=== PATIENT | male | born 1965 | race Caucasian/White ===

== ENCOUNTER 2021-04-20 17:35 | Observation (INO) | payer MEDICARE, MEDICAID, SELFPAY ==
[2021-04-20] VITALS (11 sets, daily range): BP systolic 123–157; BP diastolic 72–105; PULSE 60–84; RESP 18–20; TEMP 36.6–37.2; O2SAT 95–100; BMI 28.8
--- NOTE | 2021-04-20 18:39 | HMH.EDUTC ---
[facility] [place] Condition on Discharge: Good <Laz Mike - Last Filed: 04/20/21 23:36> Condition on Discharge: Good <Mark Arcos - Last Filed: 04/21/21 01:22> Clinical Impression: Factor 5 Leiden mutation, heterozygous, History of partial amputation of toe of left foot, Tobacco use, Overweight (BMI 25.0-29.9) Cellulitis Qualifiers: Site of cellulitis: extremity Site of cellulitis of extremity: lower extremity Laterality: right Qualified Code(s): L03.115 - Cellulitis of right lower limb Disposition: Admitted as Observation Medical Decision Making - Medical Records Medical records reviewed: Yes: I reviewed the patient's medical records. - Benja Inquiry Pt receiving controlled substance: No - Lab Data Lab results reviewed: Yes: I reviewed the patient's lab results. Result diagrams: 04/20/21 19:15 04/20/21 19:15 <Laz Mike - Last Filed: 04/20/21 23:36> - Medical Records Medical records reviewed: No: I reviewed the patient's medical records. - Benja Inquiry Pt receiving controlled substance: No - Lab Data Lab results reviewed: Yes: I reviewed the patient's lab results. Result diagrams: 04/20/21 19:15 04/20/21 19:15 <Mark Arcos - Last Filed: 04/21/21 01:22> Vital Signs: 04/20/21 18:00 04/20/21 18:50 04/20/21 19:04 Temperature 98.9 F 97.8 F Temperature Source Oral Oral Pulse Rate Pulse Rate [Right Brachial] 60 81 84 Respiratory Rate 20 18 18 Blood Pressure Blood Pressure [Right Arm] 123/82 134/87 134/87 Blood Pressure Mean [Right Arm] 95 102 102 Blood Pressure Source [Right Arm] Automatic Cuff Automatic Cuff Blood Pressure Position [Right Arm] Sitting Sitting 02 Sat by Pulse Oximetry 97 99 99 Oxygen Delivery Method Room Air Room Air Room Air 04/20/21 19:30 04/20/21 20:00 04/20/21 20:30 Temperature Temperature Source Pulse Rate 83 78 73 Pulse Rate [Right Brachial] Respiratory Rate Blood Pressure 128/78 127/105 H 137/85 Blood Pressure [Right Arm] Blood Pressure Mean [Right Arm] Blood Pressure Source [Right Arm] Blood Pressure Position [Right Arm] 02 Sat by Pulse Oximetry 95 98 98 Oxygen Delivery Method 04/20/21 21:00 04/20/21 21:30 04/20/21 22:00 Temperature Temperature Source Pulse Rate 75 71 Pulse Rate [Right Brachial] Respiratory Rate Blood Pressure 140/86 133/77 125/72 Blood Pressure [Right Arm] Blood Pressure Mean [Right Arm] Blood Pressure Source [Right Arm] Blood Pressure Position [Right Arm] 02 Sat by Pulse Oximetry 98 95 Oxygen Delivery Method 04/20/21 23:14 04/20/21 23:19 04/21/21 00:00 Temperature 97.8 F Temperature Source Pulse Rate 77 79 Pulse Rate [Right Brachial] Respiratory Rate 18 Blood Pressure 157/98 H 150/91 H Blood Pressure [Right Arm] Blood Pressure Mean [Right Arm] Blood Pressure Source [Right Arm] Blood Pressure Position [Right Arm] 02 Sat by Pulse Oximetry 98 Oxygen Delivery Method Room Air Room Air - Lab Data Lab Results 04/20/21 19:15: WBC 7.9, RBC 5.61, Hgb 15.2, Hct 45.4, MCV 80.9, MCH 27.0, MCHC 33.4, RDW 14.5, Plt Count 228, MPV 8.1, Neut % (Auto) 68.0, Lymph % (Auto) 26.0, [place] % (Auto) 4.1, Eos % (Auto) 1.5, Baso % (Auto) 0.4, Neut # (Auto) 5.4, Lymph # (Auto) 2.1, [place] # (Auto) 0.3, Eos # (Auto) 0.1, Baso # (Auto) 0.0 04/20/21 19:15: Sodium 140, Potassium 4.4, Chloride 104, Carbon Dioxide 31 H, Anion Gap 9.4, BUN 18, Creatinine 0.90, Estimated Creat Clear 131, Estimated GFR 87, Est GFR ( Amer) 105, Glucose 100, Calcium 8.7 04/20/21 19:15: ESR 62 H 04/20/21 19:15: C-Reactive Protein 20.0 H Orders (Tests/Meds): ED MEDICATIONS Generic Name Dose Route Start Last Admin Trade Name Freq PRN Reason Stop Dose Admin Acetaminophen 650 mg 04/20/21 23:18 Acetaminophen 325mg Tab PO 05/20/21 23:17 Q4HP PRN Fever or Mild Pain Amitriptyline HCl 50 mg 04/21/21 21:00 Amitriptyline 50mg Tablet PO
--- NOTE | 2021-04-20 18:48 | PC.NURSE ---
PATIENT SENT TO ER PER LYNSEY CONDE APRN FOR FURTHER EVALUATION. REPORT GIVEN TO Janna CABRAL RN
--- NOTE | 2021-04-20 18:52 | PC.NURSE ---
Pt taken to ER room 5
[2021-04-20 19:36] LABS: Anion Gap 9.4 mEq/L (5-15); Blood Urea Nitrogen 18 mg/dl (9-20); Calcium 8.7 mg/dl (8.4-10.2); Carbon Dioxide 31 mmol/L (22.0-30.0); Chloride 104 mmol/L (98-107); Creatinine Clearance Estimated 131 mL/min (50-200); Estimated Glomerular Filt Rate 87 ml/min (>60); GFR (African American) 105 ML/MIN (>60); Glucose 100 mg/dl (74-100); Potassium 4.4 mmoL/L (3.5-5.1); Sodium 140 mmol/L (136-145)
[2021-04-20 20:02] LABS: Basophils % 0.4 % (0.1-2.0); Eosinophils # 0.1 K/mm3 (0.0-0.4); Eosinophils % 1.5 % (0.1-12.0); Hematocrit 45.4 % (42.0-52.0); Hemoglobin 15.2 g/dL (14.1-18.0); Lymphocytes # 2.1 K/mm3 (0.7-4.5); Mean Corpuscular HGB Conc 33.4 g/dL (31.8-35.4); Mean Corpuscular Volume 80.9 fl (80-94); Mean Platelet Volume 8.1 fl (7.4-10.4); Monocytes # 0.3 K/mm3 (0.1-1.0); Monocytes % 4.1 % (1.7-9.3); Neutrophils # 5.4 K/mm3 (1.8-7.8); Platelet Count 228 K/mm3 (142-424); Red Blood Count 5.61 M/mm3 (4.60-6.20); Red Cell Distribution Width 14.5 % (11.5-17.5); White Blood Count 7.9 K/mm3 (4.8-10.8)
--- NOTE | 2021-04-20 20:42 | CT_ITS ---
PROCEDURE INFORMATION: Exam: CT Right Lower Extremity Without Contrast, Foot Exam date and time: 04/20/2021 8:42 PM Age: 55 years old Clinical indication: Pain; Right; Prior surgery; Surgery date: 6+ months; Surgery type: 2nd toe removed; Patient HX: Swelling and ulceration lateral RT foot near toes TECHNIQUE: Imaging protocol: CT of the Right lower extremity without contrast was performed. Exam focused on the foot. Radiation optimization: All CT scans at this facility use at least one of these dose optimization techniques: automated exposure control; mA and/or kV adjustment per patient size (includes targeted exams where dose is matched to clinical indication); or iterative reconstruction. COMPARISON: No relevant prior studies available. FINDINGS: Bones/joints: Osteopenia. No acute fracture or dislocation. No focal bony lesions. Soft tissues: Diffuse soft tissue swelling. Skin thickening. No fluid collection to suggest abscess. No necrotizing fasciitis. There is a large ulceration involving the medial aspect of the foot at the level of the 1st metatarsophalangeal joint. IMPRESSION: 1. Large ulceration involving the soft tissues at the level of the 1st metatarsophalangeal joint. 2. No acute fracture or dislocation or evidence for osteomyelitis. 3. Diffuse cellulitis.
--- NOTE | 2021-04-20 20:43 | HMH.EDSKAF ---
ED Disposition Clinical Impression: Factor 5 Leiden mutation, heterozygous, History of partial amputation of toe of left foot, Tobacco use, Overweight (BMI 25.0-29.9) Cellulitis Qualifiers: Site of cellulitis: extremity Site of cellulitis of extremity: lower extremity Laterality: right Qualified Code(s): L03.115 - Cellulitis of right lower limb Disposition: Admitted as Observation Condition on Discharge: Good Referrals: Aron Shea MD [Primary Care Provider] - - Critical Care Critical Care Time: No Attestation: On 04/20/21, the high probability of a clinically significant, sudden or life threatening deterioration of the following system(s) required my full and direct attention, intervention and personal management. The time I documented below is in addition to time spent performing reported procedures but includes the following listed in this critical care notation. Medical Decision Making - Medical Records Medical records reviewed: Yes: I reviewed the patient's medical records. - Benja Inquiry Pt receiving controlled substance: No Vital Signs: 04/20/21 18:00 04/20/21 18:50 04/20/21 19:04 Temperature 98.9 F 97.8 F Temperature Source Oral Oral Pulse Rate [Right Brachial] 60 81 84 Respiratory Rate 20 18 18 Blood Pressure [Right Arm] 123/82 134/87 134/87 Blood Pressure Mean [Right Arm] 95 102 102 Blood Pressure Source [Right Arm] Automatic Cuff Automatic Cuff Blood Pressure Position [Right Arm] Sitting Sitting 02 Sat by Pulse Oximetry 97 99 99 Oxygen Delivery Method Room Air Room Air Room Air - Lab Data Lab results reviewed: Yes: I reviewed the patient's lab results. Lab Results 04/20/21 19:15: WBC 7.9, RBC 5.61, Hgb 15.2, Hct 45.4, MCV 80.9, MCH 27.0, MCHC 33.4, RDW 14.5, Plt Count 228, MPV 8.1, Neut % (Auto) 68.0, Lymph % (Auto) 26.0, [place] % (Auto) 4.1, Eos % (Auto) 1.5, Baso % (Auto) 0.4, Neut # (Auto) 5.4, Lymph # (Auto) 2.1, [place] # (Auto) 0.3, Eos # (Auto) 0.1, Baso # (Auto) 0.0 04/20/21 19:15: Sodium 140, Potassium 4.4, Chloride 104, Carbon Dioxide 31 H, Anion Gap 9.4, BUN 18, Creatinine 0.90, Estimated Creat Clear 131, Estimated GFR 87, Est GFR ( Amer) 105, Glucose 100, Calcium 8.7 04/20/21 19:15: ESR 62 H 04/20/21 19:15: C-Reactive Protein 20.0 H Result diagrams: 04/20/21 19:15 04/20/21 19:15 Orders (Tests/Meds): ORDERS Category Date Time Status Rapid PCR Covid and Flu A/B Stat Lab 04/20/21 22:55 Ordered Blood Culture Stat Micro 04/20/21 20:42 Ordered - CT Data CT Scan: Other (foot) Time Received: 22:[address] Reviewed: Yes: I have viewed the radiologist's interpretation Preliminary Findings: Abnormal (see report ) Medical Decision Narrative: has infected rt foot with hx of dvt - pt does smoke Skin/Abscess/FB HPI - General Chief complaint: Extremity Problem,Nontraumatic Stated complaint: Legs swelling Time Seen by Provider: 04/20/21 20:10 Mode of Arrival: Wheelchair Source of Information: Patient, Medical Record Limitations: Physical Limitations Description of Symptoms (Recalled from ER Triage Doc. by RN): c/o left leg pain & swelling x1 week. Hx DVT on same leg, currently on eliquis. denies SOB. - History of Present Illness HPI narrative: pt has ongoing swelling of lower ext - lt more than rt and has reddness and chronic changes rt foot - MD complaint: other (swelling /tender rt foot ) Onset (ago): day(s) Tetanus up to date: unsure Location: R foot Severity: moderate Associated symptoms: denies other symptoms - Related Data Home Medications Medication Instructions Recorded Confirmed gabapentin 600 mg tablet 600 mg PO TID tab 06/18/20 12/10/20 oxycodone-acetaminophen 10 mg-325 1 tab PO TID tab 06/18/20 12/10/20 mg tablet Previous Rx's Medication Instructions Recorded apixaban 5 mg tablet 5 mg PO BID #180 tab 06/18/20 potassium chloride 10 mEq 10 meq PO DAILY #90 tab 06/18/20 tablet,extended release amitriptyline 50 mg tablet
[2021-04-20 21:13] LABS: Erythrocyte Sedimentation Rate 62 mm/hr (0-20)
--- NOTE | 2021-04-20 21:51 | PC.NURSE ---
patient to radiology
--- NOTE | 2021-04-20 23:01 | PC.NURSE ---
spoke with santos @ [facility] for vancomycin dosage
[2021-04-20 23:22] LABS: Coronavirus 19, PCR Not Detected (NotDetected); Influenza A, PCR Not Detected (NotDetected); Influenza B, PCR Not Detected (NotDetected)
--- NOTE | 2021-04-20 23:23 | HMH.PHAVTE ---
[facility] Pharmacy VTE Monitoring - Patient Demographics Admission date: 04/20/21 Report Date: 04/20/21 Time: 23:23 Allergies/Adverse Reactions: Patient Allergies No Known Allergies Allergy (Verified 12/10/20 11:00) Height: 1.88 m Weight: 102.058 kg Patient Problems: Current Active Problems Cellulitis (Acute) Tobacco use (Acute) Overweight (BMI 25.0-29.9) (Acute) Factor 5 Leiden mutation, heterozygous (Acute) History of partial amputation of toe of left foot (Acute) - VTE Risk Labs: VTE Related Lab Results Hgb 15.2 g/dL (14.1-18.0) 04/20/21 19:15 Hct 45.4 % (42.0-52.0) 04/20/21 19:15 Plt Count 228 K/mm3 (142-424) 04/20/21 19:15 BUN 18 mg/dl (9-20) 04/20/21 19:15 Creatinine 0.90 mg/dl (0.66-1.25) 04/20/21 19:15 Estimated Creat Clear 131 mL/min (50-200) 04/20/21 19:15 Clinical Trial Participant: No - Prophylaxis VTE Prophylaxis Ordered?: Yes Types of VTE Prophylaxis: TEDS Knee High
--- NOTE | 2021-04-20 23:28 | HMH.PHAINT ---
verified home medication list with list from [facility], please confirm with patient
[2021-04-21] VITALS (14 sets, daily range): BP systolic 122–163; BP diastolic 71–99; PULSE 63–96; RESP 14–17; TEMP 36.2–36.7; O2SAT 94–100; BMI 26.6
--- NOTE | 2021-04-21 00:03 | PC.NURSE ---
PT ARRIVED TO FLOOR FO ED W/STAFF AT 0004
--- NOTE | 2021-04-21 02:32 | PC.WOUNDNOTE ---
Ulcer on right foot big toe, no drainage. Dressing applied.
[2021-04-21 07:43] LABS: Anion Gap 7.6 mEq/L (5-15); Basophils % 0.5 % (0.1-2.0); Blood Urea Nitrogen 14 mg/dl (9-20); Calcium 8.1 mg/dl (8.4-10.2); Carbon Dioxide 30 mmol/L (22.0-30.0); Chloride 105 mmol/L (98-107); Creatinine Clearance Estimated 168 mL/min (50-200); Eosinophils # 0.2 K/mm3 (0.0-0.4); Eosinophils % 3.4 % (0.1-12.0); Estimated Glomerular Filt Rate 116 ml/min (>60); GFR (African American) 141 ML/MIN (>60); Glucose 87 mg/dl (74-100); Hematocrit 37.5 % (42.0-52.0); Lymphocytes # 2.2 K/mm3 (0.7-4.5); Lymphocytes % 37.5 % (10-50); Mean Corpuscular HGB Conc 33.5 g/dL (31.8-35.4); Mean Corpuscular Hemoglobin 27.2 pg (27.0-31.2); Mean Corpuscular Volume 81.1 fl (80-94); Mean Platelet Volume 8.2 fl (7.4-10.4); Monocytes # 0.3 K/mm3 (0.1-1.0); Monocytes % 5.7 % (1.7-9.3); Neutrophils % 52.9 % (37.0-80.0); Platelet Count 223 K/mm3 (142-424); Potassium 3.6 mmoL/L (3.5-5.1); Red Blood Count 4.62 M/mm3 (4.60-6.20); Red Cell Distribution Width 14.6 % (11.5-17.5); Sodium 139 mmol/L (136-145); White Blood Count 5.7 K/mm3 (4.8-10.8)
--- NOTE | 2021-04-21 07:59 | HMH.PHACONS ---
- Pharmacy Consult Date: 04/21/21 Time: 07:59 Referring provider: DR. CROWE Reason for Consult:: VANCOMYCIN DOSING Allergies and ADEs:: Allergies Allergy/AdvReac Type Severity Reaction Status Date / Time No Known Allergies Allergy Verified 12/10/20 11:00 Home Medications:: Home Medications Medication Instructions Recorded Confirmed Type apixaban 5 mg tablet 5 mg PO BID #180 tab 06/18/20 04/21/21 Rx gabapentin 600 mg tablet 600 mg PO TID tab 06/18/20 04/21/21 History oxycodone-acetaminophen 10 mg-325 1 tab PO Q6HP PRN tab 06/18/20 04/21/21 History mg tablet potassium chloride 10 mEq 10 meq PO DAILY #90 tab 06/18/20 04/21/21 Rx tablet,extended release Amitriptyline HCl [Elavil 50mg 50 mg PO HS 04/20/21 04/21/21 History tablet] Trazodone HCl 150 mg PO HS 04/20/21 04/21/21 History Height: 1.88 m Weight: 102.058 kg Laboratory Results:: Laboratory Results - last 24 hr 04/20/21 19:15: WBC 7.9, RBC 5.61, Hgb 15.2, Hct 45.4, MCV 80.9, MCH 27.0, MCHC 33.4, RDW 14.5, Plt Count 228, MPV 8.1, Neut % (Auto) 68.0, Lymph % (Auto) 26.0, [place] % (Auto) 4.1, Eos % (Auto) 1.5, Baso % (Auto) 0.4, Neut # (Auto) 5.4, Lymph # (Auto) 2.1, [place] # (Auto) 0.3, Eos # (Auto) 0.1, Baso # (Auto) 0.0 04/20/21 19:15: Sodium 140, Potassium 4.4, Chloride 104, Carbon Dioxide 31 H, Anion Gap 9.4, BUN 18, Creatinine 0.90, Estimated Creat Clear 131, Estimated GFR 87, Est GFR ( Amer) 105, Glucose 100, Calcium 8.7 04/20/21 19:15: ESR 62 H 04/20/21 19:15: C-Reactive Protein 20.0 H 04/20/21 23:10: SARS-CoV-2 (PCR) Not detected, Influenza A Untype (PCR) Not detected, Influenza Type B (PCR) Not detected 04/21/21 05:40: WBC 5.7 D, RBC 4.62, Hct 37.5 L, MCV 81.1, MCH 27.2, MCHC 33.5, RDW 14.6, Plt Count 223, MPV 8.2, Neut % (Auto) 52.9, Lymph % (Auto) 37.5, [place] % (Auto) 5.7, Eos % (Auto) 3.4, Baso % (Auto) 0.5, Neut # (Auto) 3.0, Lymph # (Auto) 2.2, [place] # (Auto) 0.3, Eos # (Auto) 0.2, Baso # (Auto) 0.0 04/21/21 05:40: Sodium 139, Potassium 3.6, Chloride 105, Carbon Dioxide 30, Anion Gap 7.6, BUN 14, Creatinine 0.70 D, Estimated Creat Clear 168, Estimated GFR 116, Est GFR ( Amer) 141 D, Glucose 87, Calcium 8.1 L Medical History: Reports:: Hypertension Assessment and Plan - Assessment and plan all Dx Assessment and Plan for all problems:: Pharmacokinetic dosing service Objective: Patient: Floor: Age: 55 yo Serum creatinine: 0.90 mg/dL Height: 74.0 Inches Weight (kg): 102 Assessment: IBW (kg): 82.20 Dosing wt(kg): 102 Estimated Creatinine clearance (ml/min): 105.3 CRCL method: Cockcroft and Gault using ibw(default). Drug selected: Vancomycin Loading dose (mg): 0 Vd (liters): 81.6 (factor used: 0.8 L/kg) Yo (hr-1): 0.092 Half life (hrs): 7.53 Recommended dose: 2000 mg Interval: 12 hrs Infusion time (hrs): 2.0 Predicted peak (mcg/mL): 33.5 Predicted trough (mcg/mL): 13.35 Total body weight is being used for vancomycin dosing. Recommendations: Give Vancomycin 2000 mg q 12 hrs with an expected Cpeak of 33.5 mcg/ml and an expected Ctrough of 13.35 mcg/ml Thank you for the consult, will continue to follow. -DARRELL ANGEL, DEBBIED
--- NOTE | 2021-04-21 08:03 | XR_ITS ---
PROCEDURE: XR FOOT WT BEARING RT 3V CLINICAL INDICATION: swelling Pain COMPARISON: No exams were available for comparison FINDINGS: Moderate hallux valgus. There is lateral displacement of the proximal phalanx of the great toe by 8 mm. Osteoarthritic changes are present at the 1st MTP joint. Bandage artifact is present medially at the 1st MTP joint with soft tissue defect at this area. No bony erosive changes apparent that would indicate acute osteomyelitis. There has been amputation at the 2nd MTP joint. Hammertoe deformity involves the 3rd 4th and 5th toes. IMPRESSION: Hallux valgus with osteoarthritis 1st MTP joint and soft tissue defect medially at this area but no evidence of acute osteomyelitis. Dictated by: Damien Ribeiro MD 04/21/2021 11:00 Damien Ribeiro MD in [place] 04/21/2021 11:00
--- NOTE | 2021-04-21 08:05 | HMH.HP ---
*Admission Date: 04/20/21 *Chief complaint: RLE Redness and edema *History of present illness: 55-year-old male patient presents to the emergency department with bilateral lower extremity edema left greater than right. He reports 2 days ago the redness and edema increased in his right lower extremity and he has a wound on his right inner great toe. In the emergency department CT of his right foot showed a large ulceration involving soft tissue at the first metatarsophalangeal joint. Currently podiatry is with patient and planning on taking him to surgery today. He denies any chest pain/pressure or shortness of breath. He also denies any nausea/vomiting/diarrhea or fever/chills/body aches. He is currently on Eliquis for a remote DVT in his left lower extremity 04/20/[address]: FINDINGS: Bones/joints: Osteopenia. No acute fracture or dislocation. No focal bony lesions. Soft tissues: Diffuse soft tissue swelling. Skin thickening. No fluid collection to suggest abscess. No necrotizing fasciitis. There is a large ulceration involving the medial aspect of the foot at the level of the 1st metatarsophalangeal joint. IMPRESSION: 1. Large ulceration involving the soft tissues at the level of the 1st metatarsophalangeal joint. 2. No acute fracture or dislocation or evidence for osteomyelitis. 3. Diffuse cellulitis. Electronically signed by Preston Crawley MD [facility] History I have reviewed the patient's past medical history: Yes Medical History: Denies:: Coronary Artery Disease, Diabetes Mellitus Type 2, Hyperlipidemia, Hypertension *Have you ever received a pneumonia vaccine?: No *Have you received a flu vaccine this season?: Yes - *Social History Smoking Status: Current every day smoker Tobacco Type: cigarettes # Packs/Day (cigarettes): 1 Alcohol Intake: never Substance Use Type: denies use *Occupational Status:: unemployed *Travel in the last 8 weeks: None Family Hx:: No significant family history Review of Systems - Review of Systems Review of systems:: pertinent systems reviewed and negative unless documented below - Constitutional Reports fatigue, Denies anorexia - Eyes Denies blind spots, Denies double vision - ENT Denies abnormal hearing, Denies dizziness - *Cardiovascular Reports shortness of breath, Denies chest pain - *Respiratory Denies change in phlegm color, Denies chest congestion - *Gastrointestinal Denies abdominal pain, Denies bloating - *Musculoskeletal Denies back pain, Denies limited joint movement - Integumentary/Breasts Reports lesions - *Neurologic Denies confusion, Denies headache(s), Denies tingling/numbness/burning sensations, Denies seizure-like activity - Psychiatric Denies abnormal sleep pattern, Denies hearing things others do not hear - Endocrine Denies cold intolerance, Denies heat intolerance - Hematologic/Lymphatic Reports easy bleeding, Reports easy bruising - Allergic/Immunologic Denies GI upset with certain foods, Denies tongue swelling Meds Home Medications Medication Instructions Recorded Confirmed Type apixaban 5 mg tablet 5 mg PO BID #180 tab 06/18/20 04/21/21 Rx gabapentin 600 mg tablet 600 mg PO TID tab 06/18/20 04/21/21 History oxycodone-acetaminophen 10 mg-325 1 tab PO Q6HP PRN tab 06/18/20 04/21/21 History mg tablet potassium chloride 10 mEq 10 meq PO DAILY #90 tab 06/18/20 04/21/21 Rx tablet,extended release Amitriptyline HCl [Elavil 50mg 50 mg PO HS 04/20/21 04/21/21 History tablet] Trazodone HCl 150 mg PO HS 04/20/21 04/21/21 History Allergies Allergy/AdvReac Type Severity Reaction Status Date / Time No Known Allergies Allergy Verified 12/10/20 11:00 Exam Vital signs and Labs for Last 24 Hours: Temp Pulse Resp BP Pulse Ox 97.8 F 68 16 124/74 96 04/21/21 08:00 04/21/21 08:00 04/21/21 08:00 04/21/21 08:00 04/21/21 08:00 Laboratory Results - last 24 hr 04/20/21
--- NOTE | 2021-04-21 08:11 | XR_ITS ---
PROCEDURE: XR FOOT WT BEARING LT 3V CLINICAL INDICATION: Hx amp Follow-up amputation COMPARISON: CR XR FOOT WT BEARING RT 3V from 04/21/2021 FINDINGS: Status post amputation at the 2nd MTP joint. Hammertoe deformity is present at 3rd digit. Osteoarthritic changes are noted at the metatarsal tarsal region. On the lateral view there appears to be bony expansion of the distal fibula possibly due to an old fracture. Tib fib films may provide further evaluation. Mild pes planus IMPRESSION: Prior amputation 2nd metatarsophalangeal joint with osteoarthritic changes. Bony expansion of the distal fibula. Suggest tib fib films for further evaluation Dictated by: Damien Ribeiro MD 04/21/2021 09:28 Damien Ribeiro MD in [place] 04/21/2021 09:28
--- NOTE | 2021-04-21 08:57 | CA_ITS ---
APPROVED REPORT EXAM: Comprehensive 2D, Doppler, and color-flow Echocardiogram Research Development Manager: Nia Juarez, RT(R) Ht: 6 ft 2 in Wt: 225lbs BSA: 2.29 BP: 134/87 mmHg Indications: cellulitis, smoker, edema, SOB, factor 5, RLE non healing ulcer rt great toe. 2D Dimensions LVOT 2.07 cm (M/F) 1.5-2.5 LVEF ([facility]ford's) 61.50 % M: 52 - 72 LV Volume 127.20 mL M: 62 - 150 LV Volume Index 55.78 mL/m2 M: 34 - 74 M-Mode Dimensions RVDd 1.44 cm (0.9-2.6) LA Diam 3.79 cm (1.9-4.0) LVDd 5.30 cm (3.5-5.7) Ao Diam 2.98 cm (2.0-3.7) LVDs 4.03 cm (3.5-5.7) IVSd 1.02 cm (0.6-1.1) PWd 0.93 cm (0.6-1.1) EF (Teich) 47.30% FS 24.00% EDV (Teich) 135.30 mL ESV (Teich) 71.30 mL LV Diastology E Decel Time 193.00 (160-240 msec) E/A Ratio 1.1 MED E' 8.20 (< 7 cm/sec) E'/MED E' Ratio 10.63 (>14) LAT E' 13.90 (<10 cm/sec) E/LAT E' Ratio 6.27 (>14) Mitral Valve MV E Max Tung. 87.00 (40-130 cm/s) MV A Velocity 81.00 (40-130 cm/s) E/A Ratio 1.08 MV Decel. Time 193.00 (160-240 ms) MV PHT 57.00 ms Left Ventricle Left atrium is normal size, left ventricle is normal size, there is no concentric left ventricular hypertrophy, visually estimated ejection fraction 55% with no regional wall motion abnormality. Diastolic parameters are within normal range. Right Ventricle Right atrium and right ventricle are normal size and contractility. Aortic Valve Aortic valve is minimally thickened and fibrosed, there is no aortic stenosis or aortic insufficiency. Mitral Valve Mitral valve grossly normal, there is trace mitral regurgitation. Tricuspid Valve Tricuspid grossly normal, there is trace tricuspid regurgitation. Tricuspid regurgitation jet velocity is inadequate for calculation of the right ventricular systolic pressure. Pulmonic Valve Pulmonic valve is poorly visualized. Great Vessels Aortic root is normal size. Pericardium No significant pericardial effusion noted. Conclusion 1. Normal left ventricular size, preserved left ventricular systolic function, visually estimated ejection fraction 55% with no regional wall motion abnormality, diastolic parameters are within normal range. 2. Trace mitral and tricuspid regurgitation. 3. No significant pericardial effusion noted. Electronically signed by : Alfredo Cruz, 04/22/2021 16:17:07
--- NOTE | 2021-04-21 09:54 | HMH.ORTHOCON ---
*Admission Date: 04/20/21 <Lyla Austin - 04/21/21 09:57> *Reason for consult:: Infected Right foot ulcer <Lyla Austin 04/21/21 09:57> *History of present illness: Patient has been NPO since midnight for our consult. Patient has an ulcer with drainage and malodor to his Right medial hallux. The patient states he has some pain to palpation but he has become tolerant of the pain over the past week. 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 denies SOB. Patient does present with a right second toe amputation that was done previously this year on January 14, [address] Mahamed Squires. Patient also presents with left second toe amputation does not remember the surgeon but stated it was sometime in 2017. Sites appear well-healed. The right medial hallux ulcer has some callused borders but had greenish malodorous drainage coming from the center of the ulcer. I did obtain a culture and cleaned the site with sterile saline. Redressed with a Betadine soaked 4 x 4, dry gauze and Curlex. Patient has agreed to go to the OR with Dr. Yost for incision and drainage to clean out the ulcer.?. <Lyla Austin 04/21/21 10:02> [facility] History I have reviewed the patient's past medical history: Yes <Lyla Austin 04/21/21 11:02> Medical History: Reports:: Hypertension <Lyla Austin 04/21/21 09:57> *Have you ever received a pneumonia vaccine?: No <Lyla Austin 04/21/21 09:57> *Have you received a flu vaccine this season?: Yes <Lyla Austin 04/21/21 09:57> - *Social History Smoking Status: Current every day smoker <Lyla Austin 04/21/21 09:57> Tobacco Type: cigarettes <Lyla Austin 04/21/21 09:57> # Packs/Day (cigarettes): 1 <Lyla Austin 04/21/21 09:57> Alcohol Intake: never <RomulosilvinoLyla John 04/21/21 09:57> Substance Use Type: denies use <TobreannLyla Alvaro 04/21/21 09:57> *Occupational Status:: unemployed <TobreannLyla Alvaro 04/21/21 09:57> *Travel in the last 8 weeks: None <NormanLyla Alvaro 04/21/21 09:57> Family Hx:: No significant family history <NormanLyla Alvaro 04/21/21 09:57> Review of Systems - Review of Systems Review of systems:: pertinent systems reviewed and negative unless documented below <Maame Yost 04/21/21 11:26> - Constitutional Denies anorexia <Maame Yost 04/21/21 11:26> Denies fever(s) <TobreannLyla L 04/21/21 11:02> - Eyes Denies blind spots <Maame Yost 04/21/21 11:26> - ENT Denies abnormal hearing <Maame Yost 04/21/21 11:26> - *Cardiovascular Denies chest pain, Denies shortness of breath <NormanLyla Alvaro 04/21/21 11:02> - *Respiratory Denies cough <TobreannLyla L 04/21/21 11:02> - *Gastrointestinal Denies abdominal pain <NormanLyla Alvaro 04/21/21 11:02> - *Genitourinary Denies difficulty urinating <Lyla Austin 04/21/21 11:02> - *Musculoskeletal Reports other <NormanLyla Alvaro 04/21/21 11:02> Comments: History of partial amputation of his left 2nd toe back in 2017 <Lyla Austin 04/21/21 11:02> - Integumentary/Breasts Reports wounds (Right medial hallux open wound, drainage cultured) <Lyla Austin 04/21/21 11:02> - *Neurologic Denies headache(s), Denies tingling/numbness/burning sensations, Denies seizure-like activity <Lyla Austin - 04/21/21 09:57> - Psychiatric Denies confusion <Lyla Austin - 04/21/21 11:02> - Hematologic/Lymphatic Reports easy bleeding (Factor V Leiden mutation, heterozygous disorder), Reports easy bruising <Lyla Austin - 04/21/21 11:02> Meds Home Medications Medication Instructions Recorded Confirmed Type apixaban 5 mg tablet 5 mg PO BID #180 tab 06/18/20 04/21/21 Rx gabapentin 600 mg tablet 600 mg PO TID tab 06/18/20 04/21/21 History oxycodone-acetaminophen 10 mg-325 1 tab PO Q6HP PRN tab 06/18/20 04/21/21 History mg tablet p
--- NOTE | 2021-04-21 10:26 | HMH.CNCARD ---
History of Present Illness Consult date: 04/21/21 Requesting physician: Laz Mike Consult reason: shortness of breath Chief complaint: RLE edema History of present illness: This is a 55-year-old white gentleman who was admitted to the hospital with cellulitis and an ulceration to his right lower extremity. The patient states that since December 2020 he has been dealing with issues with his right lower extremity and edema. He states that he then developed cellulitis with the edema in his right lower extremity. He states about 2 days ago the cellulitis worsened and he decided to be evaluated for the cellulitis and edema in his right lower extremity. The patient underwent CT of the right foot and this showed a large ulceration involving the soft tissue at the first metatarsophalangeal joint. The patient has been evaluated by podiatry and he is going to undergo an I&D today. He denies any chest pain or pressure. He denies any shortness of breath during my questioning. He does report having edema in his lower extremities and states that the right lower extremity is much worse than the left. He denies any fever, nausea, vomiting, diarrhea, PND or orthopnea. He states that he did have some chills a few days ago but no fever. He denies coronary artery disease, [place], hypertension, hyperlipidemia and diabetes. The patient told me that he is healthy as a horse and he does not know why cardiology is seeing him. He states that he is just ready to get this surgery completed on his foot. [facility] History I have reviewed the patient's past medical history: Yes Medical History: Denies:: Coronary Artery Disease, Diabetes Mellitus Type 2, Hyperlipidemia, Hypertension *Have you ever received a pneumonia vaccine?: No *Have you received a flu vaccine this season?: Yes - *Social History Smoking Status: Current every day smoker Tobacco Type: cigarettes # Packs/Day (cigarettes): 1 Alcohol Intake: never Substance Use Type: denies use *Occupational Status:: unemployed *Travel in the last 8 weeks: None Family Hx:: No significant family history Meds Home Medications Medication Instructions Recorded Confirmed Type apixaban 5 mg tablet 5 mg PO BID #180 tab 06/18/20 04/21/21 Rx gabapentin 600 mg tablet 600 mg PO TID tab 06/18/20 04/21/21 History oxycodone-acetaminophen 10 mg-325 1 tab PO Q6HP PRN tab 06/18/20 04/21/21 History mg tablet potassium chloride 10 mEq 10 meq PO DAILY #90 tab 06/18/20 04/21/21 Rx tablet,extended release Amitriptyline HCl [Elavil 50mg 50 mg PO HS 04/20/21 04/21/21 History tablet] Trazodone HCl 150 mg PO HS 04/20/21 04/21/21 History Allergies Allergy/AdvReac Type Severity Reaction Status Date / Time No Known Allergies Allergy Verified 12/10/20 11:00 Exam Vital signs and Labs for Last 24 Hours: Temp Pulse Resp BP Pulse Ox 97.8 F 68 16 124/74 96 04/21/21 08:00 04/21/21 08:00 04/21/21 08:00 04/21/21 08:00 04/21/21 08:00 Laboratory Results - last 24 hr 04/20/21 19:15: WBC 7.9, RBC 5.61, Hgb 15.2, Hct 45.4, MCV 80.9, MCH 27.0, MCHC 33.4, RDW 14.5, Plt Count 228, MPV 8.1, Neut % (Auto) 68.0, Lymph % (Auto) 26.0, Edmunds % (Auto) 4.1, Eos % (Auto) 1.5, Baso % (Auto) 0.4, Neut # (Auto) 5.4, Lymph # (Auto) 2.1, Edmunds # (Auto) 0.3, Eos # (Auto) 0.1, Baso # (Auto) 0.0 04/20/21 19:15: Sodium 140, Potassium 4.4, Chloride 104, Carbon Dioxide 31 H, Anion Gap 9.4, BUN 18, Creatinine 0.90, Estimated Creat Clear 131, Estimated GFR 87, Est GFR ( Amer) 105, Glucose 100, Calcium 8.7 04/20/21 19:15: ESR 62 H 04/20/21 19:15: C-Reactive Protein 20.0 H 04/20/21 23:10: SARS-CoV-2 (PCR) Not detected, Influenza A Untype (PCR) Not detected, Influenza Type B (PCR) Not detected 04/21/21 05:40: WBC 5.7 D, RBC 4.62, Hct 37.5 L, MCV 81.1, MCH 27.2, MCHC 33.5, RDW 14.6, Plt Count 223, MPV 8.2, Neut % (Auto) 52.9, Lymph % (Auto) 37.5, Edmunds % (Auto) 5.7, Eos % (Auto) 3.4, Baso % (Auto) 0.5, Neut # (Auto) 3.0, Lymph # (Auto)
--- NOTE | 2021-04-21 10:30 | PC.NURSE ---
Pt down for surgery @ this time
--- NOTE | 2021-04-21 11:18 | US_ITS ---
APPROVED REPORT Exam Type: Ankle to Brachial Index Indications Claudication: Bilaterally Limb Pain: Right Non-healing Ulcer: Right Rest Pain: Bilaterally Edema Current Smoker Patient has a non healing ulcer on the great toe of the Rt foot. Patient's 3rd and 4th digit of the right foot have obvious wounds present. Bandages and gauze in place post surgical procedure on the right non healing ulcer of the great toe. Risk Factors History of PAD: Hypertension Hyperlipidemia Current Smoker Previous 2nd toe amputation on the right foot. Pressures/Indices Right Indices Left Indices Brachial 147.00 mmHg Brachial 143.00 mmHg Low Thigh 170.00 mmHg 1.16 Low Thigh 169.00 mmHg 1.15 Calf 169.00 mmHg 1.15 Calf 162.00 mmHg 1.10 Ankle(PT) 187.00 mmHg 1.27 Ankle(PT) 163.00 mmHg 1.11 Ankle(DP) 187.00 mmHg 1.27 Ankle(DP) 166.00 mmHg 1.13 Digit 142.00 mmHg 0.97 Digit 135.00 mmHg 0.92 Findings RT JORGE=1.3 LT JORGE=1.1 RT TBI=1.0 LT TBI=0.9 Normal waveforms bilaterally Diminished DP pulses RLE Otherwise normal PT pulses bilaterally and DP pulse LLE. Conclusion RT JORGE=1.3 LT JORGE=1.1 RT TBI=1.0 LT TBI=0.9 Normal waveforms bilaterally Diminished DP pulses RLE Otherwise normal PT pulses bilaterally and DP pulse LLE. Electronically signed by : Damien Ribeiro MD 04/21/2021 16:54:52
[2021-04-21 11:25] LABS: NT Pro Brain Natriuretic Pep. 55.1 pg/mL (0-125)
--- NOTE | 2021-04-21 11:31 | HMH.OPNOTE ---
Date of procedure: 04/21/21 Pre-op Diagnosis:: 1. Left foot callus 2. Right foot ulcer 3. Right foot cellulitis 4. History b/l 2nd toe amputations Post-op Diagnosis:: Same Procedure performed:: 1. Left plantar foot callus debridement 2. Right 3rd toe callus debridement 3. Right 1st MPJ ulcer debridement, excision with delayed primary closure 4. Right 1st metatarsal bone biopsy 5. Right first MPJ medial capsulorrhaphy Surgeon:: Maame Yost DPM EMAIL DESIGNER:: Hesham Ruth Anesthesia: MAC, local (20cc 0.5% marcaine plain) Estimated blood loss (mL): 20 Clinical Note:: Patient is a 55 y/o male with history of ulcers, osteomyelitis and amputations. Patient has an ulcer with drainage and malodor to his right medial hallux, 1st MPJ region. The patient states he has some pain to palpation but he has become tolerant of the pain over the past week. 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 denies SOB. Patient does present with a right second toe amputation that was done previously this year on January 14, [address] Mahamed Squires. Patient also presents with left second toe amputation does not remember the surgeon but stated it was sometime in 2017. Sites appear well-healed. Radiographs of the feet and right CT were reviewed and discussed with the patient. No obvious signs of osteomyelitis. We discussed conservative versus surgical treatment options. Conservative treatment options include local wound care, oral and IV antibiotics, change in shoe wear, taping/padding, and off-loading. Discussed that patient would benefit from a wider and deeper shoe wear to accommodate the deformity. We discussed surgical intervention for bone biospy and wound debridement. Patient also understands that they could have wound healing complications including delayed healing and infection. We discussed that if the wound does not heal, it is possible that they may need a more proximal amputation and could result in further loss of digits, loss of partial foot or loss of leg. We discussed the risks and benefits in great detail. Other surgical risks include: prolonged pain and swelling, further infection requiring oral or IV antibiotics, delay in healing of soft tissue or bone, nerve or blood vessel damage, CRPS/RSD, DVT, anesthesia complications, and even . All questions answered. Patient verbalized understanding. Consent obtained. Dr. Mike for need medical clearance. Pre-op labs reviewed. Cardio consulted for SOB and recommended ABIs. Will plan to obtain after procedure. Patient needs bone biospy to evaluate for osteomyelitis, no planned amputation today. Operative findings:: There is a callus noted to the plantar aspect of the left foot under the third metatarsal. Callus also noted to the right third toe tip plantarly. Both were sharply debrided with 15 blade through callused skin. No underlying ulcerations noted. The right medial hallux ulcer has some callused borders but had malodorous drainage coming from the center of the ulcer. Wound culture obtained at the bedside this morning. Predebridement right first metatarsal ulcer was 100% yellow fibrotic slough and measured 1.3 x 1.1 x 0.3 cm. It did not probe to the first metatarsal bone. Localized edema and erythema noted. No ascending cellulitis noted. Post debridement sharply excisionally with a 15 blade and forceps the ulcer measured 1.8 x 1.4 x 0.4 cm. There was bleeding noted. Patient is on Eliquis. Operative note:: On this date and time patient was deemed an appropriate surgical candidate. With informed consent signed, the patient was taken to the operating theater room. The patient was positioned supine. MAC anesthesia was induced. No tourniquet used. Pre-op right foot block given with 20 cc 0.5% marcaine plain. IV Vanco 1g given after the bone biospies. Callus debridement x2: Left plantar foot callus, right 3rd toe callus: Both the left and right foot were prepped and draped in
--- NOTE | 2021-04-21 12:02 | P.PN_ITS ---
[facility] Anesthesia Checklist - Structural Data Admitted From: Inpatient Planned Operative Procedure/s: i/d bx r foot Consent for Planned Operative Procedure(s) Verified: Yes - Airway Assessment C-Spine Mobility Assessed: Yes TMJ Mobility Assessed: Yes Dentition: Edentulous - Neurological Assessment Level of Consciousness: Awake, Alert, Appropriate - Anesthesia Plan Anesthesia Risk discussed: Yes Anesthesia Plan: Verified ASA Class: III Anesthesia Type: MAC [facility] History I have reviewed the patient's past medical history: Yes Medical History: Denies:: Coronary Artery Disease, Diabetes Mellitus Type 2, Hyperlipidemia, Hypertension *Have you ever received a pneumonia vaccine?: No *Have you received a flu vaccine this season?: Yes Anesthesia experience/problems:: none - *Social History Smoking Status: Current every day smoker Tobacco Type: cigarettes # Packs/Day (cigarettes): 1 Alcohol Intake: never Substance Use Type: denies use *Occupational Status:: unemployed *Travel in the last 8 weeks: None Family Hx:: No significant family history
--- NOTE | 2021-04-21 12:54 | PC.NURSE ---
Received report from Arabella MattaRN
--- NOTE | 2021-04-21 13:41 | SW/DCPLANNER ---
I spoke with this patient regarding discharge plans. Patient stated [place] Patient stated that he is independent at home. Patient has stated that he does not need any DME or home health services at this time. I will continue to follow up with this patient until he is medically stable for discharge. Patient has requested to speak with Dr Shea: I have informed patient that he will be rounding tomorrow morning.
--- NOTE | 2021-04-21 14:11 | HMH.PTEV ---
Physical Therapy Evaluation Rehab PT IP Evaluation Start: 04/21/21 13:03 Freq: ONCE Status: Active Protocol: Document 04/21/21 14:09 PHORSAW (Rec: 04/21/21 14:11 PHORNE [id number]) Subjective/History History History 55 yowm adm to [facility] for R foot wound I&D. He reports he lives alone, 1-2 steps to enter the home and is independent with all mobility prior to adm. Subjective Subjective Pt reports no c/o this pm other than being hungry. Rehab PT IP Eval Objective Appearance Patient Behavior Appropriate Patient Orientation Person,Place,Time Difficulty following instructions none Speech Pattern Clear Ambulation Patient Able to Ambulate Yes Ambulation Observation IP General Gait Pattern Observation Antalgic Gait Ambulation Distance (feet) 10 Ambulation Assistive Device None Ambulation Ability Supervision/Stand by Balance Ability to Arise Able, uses arms to help Sitting Balance Steady, safe Standing Balance Steady, wide stance Dynamic Sitting Balance Ability Good Dynamic Standing Balance Ability Fair Transfers Bed Transfer Ability Supervision/Stand by Chair Transfer Ability Supervision/Stand by Sit to Stand Bed Transfer Ability Supervision/Stand by Sit to Stand Chair Transfer Ability Supervision/Stand by Rehab PT IP prob,goals,plan Problems Date of Evaluation: 04/21/21 Discharge Plan PT Discharge Plan Pt appears to be at baseline for mobility at this time and should be appropriate to return home once medically stable. G -code Required No Eval Complexity Eval Charge Codes 36966 - Moderate Complexity PHYSICIAN CERTIFICATION: I certify the specified therapy services for Aurea Sierra are required, authorized, and reviewed every 30 days.
--- NOTE | 2021-04-21 15:00 | PC.NURSE ---
Pt educated on use of IS, pt able to demonstrate correct use back to staff. IS @ best = 2500.
--- NOTE | 2021-04-21 15:29 | SUR.PHASEI ---
1255: report called to Yenifer Mock RN.
[2021-04-21 17:14] LABS: Hemoglobin 12.6 g/dL (14.1-18.0)
--- NOTE | 2021-04-21 18:17 | PC.NURSE ---
Pt alert and oriented x4. Pt had a debridement of ulcers on both feet. Pt left for surgery at 1030 and returned at 1300. Dressing clean, dry, and intact. Pts left foot elevated per MD order. Pt teaching given on partial weight bearing and post op shoe is in place. Pt teaching was given on incentive spirometer and pt has been using it hourly. Pt VSS. Will continue to monitor.
[2021-04-22] VITALS: BP 132/80; PULSE 86; RESP 20; TEMP 36.6; O2SAT 95
[2021-04-22 04:00] VITALS: BP 115/72; PULSE 62; RESP 18; TEMP 36.9; O2SAT 95
[2021-04-22 05:03] VITALS: BMI 28.0
--- NOTE | 2021-04-22 06:10 | PC.NURSE ---
right lower dressing remains clean, dry and intact. awake, alert and oriented x 4. breath sounds clear with sats mid 90s on r/a. denies pain throughout night until this am. treated with prn medication. has denies soa, nausea or vomiting. voiding clear, yellow urine per urinal
[2021-04-22 06:27] LABS: Basophils % 0.3 % (0.1-2.0); Eosinophils # 0.2 K/mm3 (0.0-0.4); Eosinophils % 2.9 % (0.1-12.0); Hematocrit 38.2 % (42.0-52.0); Hemoglobin 12.5 g/dL (14.1-18.0); Lymphocytes # 2.1 K/mm3 (0.7-4.5); Mean Corpuscular HGB Conc 32.6 g/dL (31.8-35.4); Mean Corpuscular Volume 82.9 fl (80-94); Mean Platelet Volume 8.8 fl (7.4-10.4); Monocytes # 0.3 K/mm3 (0.1-1.0); Monocytes % 4.2 % (1.7-9.3); Neutrophils % 65.5 % (37.0-80.0); Platelet Count 209 K/mm3 (142-424); Red Blood Count 4.61 M/mm3 (4.60-6.20); Red Cell Distribution Width 14.7 % (11.5-17.5); White Blood Count 7.6 K/mm3 (4.8-10.8)
[2021-04-22 06:30] LABS: Chloride 103 mmol/L (98-107); Potassium 4.4 mmoL/L (3.5-5.1); Sodium 138 mmol/L (136-145)
[2021-04-22 06:32] LABS: Alanine Aminotransferase 9 U/L (12-78); Aspartate Amino Transferase 19 U/L (17-59); Blood Urea Nitrogen 12 mg/dl (9-20); Creatinine Clearance Estimated 143 mL/min (50-200); Estimated Glomerular Filt Rate 100 ml/min (>60); GFR (African American) 121 ML/MIN (>60)
[2021-04-22 06:33] LABS: Albumin Level 3.3 g/dl (3.5-5.0); Albumin/Globulin Ratio 1.3 (1.1-1.8); Alkaline Phosphatase 95 U/L (38-126); Anion Gap 5.4 mEq/L (5-15); Bilirubin,Total 0.4 mg/dl (0.2-1.3); Calcium 8.1 mg/dl (8.4-10.2); Carbon Dioxide 34 mmol/L (22.0-30.0); Globulin 2.6 g/dL (1.3-3.2); Glucose 109 mg/dl (74-100); Total Protein,Serum 5.9 g/dl (6.3-8.2)
[2021-04-22 07:27] VITALS: O2SAT 95
[2021-04-22 08:00] VITALS: BP 136/71; PULSE 77; RESP 18; TEMP 36.4; O2SAT 97
--- NOTE | 2021-04-22 08:20 | HMH.ORTHPN ---
Subjective Date: 04/22/21 Time: 07:45 Principal diagnosis: Right foot ulcer, cellulitis Interval history: Patient is resting comfortably in bed. Reports minimal soreness to the right foot. Does report some left knee/thigh pain. Denies N/V, F/C, SOB/CP. PN: Obj Ex Vital signs: Temp Pulse Resp BP Pulse Ox 98.4 F 62 18 115/72 95 04/22/21 04:00 04/22/21 04:00 04/22/21 04:00 04/22/21 04:00 04/22/21 07:27 - Constitutional no acute distress - Routine HEENT Exam Head: Present: normocephalic Eye: Present: EOMI ENT: Present: mucous membranes moist - Routine Respiratory Exam Absent: respiratory distress - Routine Abdominal Exam Present: soft - Routine Extremities Exam Present: edema (improving), pulses intact, amputation (b/l 2nd toe amp) - Detailed Lower Extremity Exam Top foot image: 1 - Decreased edema and erythema around the right 1st MPJ. Sutures are clean dry and intact to previous ulcer site, ulcer was surgical excised 04/21/21. No new drainage, malodor or purulence. Pulses intact. Reports some left thigh and knee pain. Progress Note: A&P (1) Cellulitis Status: Acute (2) Edema Status: Acute (3) History of amputation of toe Status: Acute (4) History of partial amputation of toe of left foot Status: Acute (5) SOB (shortness of breath) Status: Acute (6) Ulcer of right foot Status: Acute (7) Factor 5 Leiden mutation, heterozygous Status: Chronic (8) Tobacco use Status: Chronic (9) Chronic back pain greater than 3 months duration Status: Acute Assessment and Plan for All Diagnoses:: Sx 04/21/21, S/P 1. Left plantar foot callus debridement, 2. Right 3rd toe callus debridement, 3. Right 1st MPJ ulcer debridement, excision with delayed primary closure, 4. Right 1st metatarsal bone biopsy, 5. Right first MPJ medial capsulorrhaphy POD#1 04/21/21, intraop specimens: Right ulcer tissue pathology: pending Right first metatarsal bone pathology: pending Right first metatarsal bone culture: pending Microbiology 04/21/21 08:30 Foot,Right - Drainage Gram Stain - Final 04/21/21 08:30 Foot,Right - Drainage Wound Culture - Preliminary 04/20/21 23:10 Blood - Abscess Blood Culture - Preliminary Gram Positive Cocci 04/20/21 23:10 Blood - Abscess Blood Culture - Preliminary Overall surgical site looks stable with no new signs of infection. Pain and swelling has decreased. Area cleansed with Betadine. Betadine soaked gauze along with dry sterile dressing applied to the right foot. 1. PWB in post op shoe with crutches, walker 2. Dressing changes 3 times weekly (cleanse skin with saline or betadine, dry. Then apply betadine soaked gauze, dry gauze, kerlix, secure with Christopher) 3. Will need HHC vs wound care/infusion at discharge 4. Continue antibiotics: awaiting cultures. Prelim blood and wound cultures: GPC. Patient will likely need a PICC with IV abx (2 weeks if bone cultures negative for osteomyelitis, 6 wks if bone cultures positive) 5. Discuss plan of care with Dr. Mike/Dr. Shea -defer the left knee/thigh pain to PCP team 6. Plan for dsg change tomorrow per Podiatry (stable from Pod standpoint)
--- NOTE | 2021-04-22 09:41 | HMH.PNCARD ---
Subjective Date: 04/22/21 Time: 09:20 Principal diagnosis: Right foot ulcer, cellulitis Interval history: This is a 55-year-old white gentleman who was admitted to the hospital for cellulitis and ulceration to the right lower extremity. The patient did undergo an I&D of the right ulcer yesterday with Dr. Yost. His right foot is now in a dressing. He denies any pain in his right lower extremity. He states that his edema has improved as well in his right lower extremity. He denies any chest pain or pressure. He denies any shortness of breath. He denies any fever, chills, nausea, vomiting, diarrhea, PND or orthopnea. He states that he feels very well today. Exam Vital signs and Labs for Last 24 Hours: Temp Pulse Resp BP Pulse Ox 97.5 F L 77 18 136/71 97 04/22/21 08:00 04/22/21 08:00 04/22/21 08:00 04/22/21 08:00 04/22/21 08:00 Laboratory Results - last 24 hr 04/21/21 05:40: Hgb 12.6 L D 04/21/21 05:40: NT-Pro-B Natriuret Pep 55.1 04/22/21 05:50: WBC 7.6 D, RBC 4.61, Hgb 12.5 L, Hct 38.2 L, MCV 82.9, MCH 27.0, MCHC 32.6, RDW 14.7, Plt Count 209, MPV 8.8, Neut % (Auto) 65.5, Lymph % (Auto) 27.0, [place] % (Auto) 4.2, Eos % (Auto) 2.9, Baso % (Auto) 0.3, Neut # (Auto) 5.0, Lymph # (Auto) 2.1, [place] # (Auto) 0.3, Eos # (Auto) 0.2, Baso # (Auto) 0.0 04/22/21 05:50: Sodium 138, Potassium 4.4 D, Chloride 103, Carbon Dioxide 34 H, Anion Gap 5.4, BUN 12, Creatinine 0.80, Estimated Creat Clear 143, Estimated GFR 100, Est GFR ( Amer) 121, Glucose 109 H, Calcium 8.1 L, Total Bilirubin 0.4, AST 19, ALT 9 L, Alkaline Phosphatase 95, Total Protein 5.9 L, Albumin 3.3 L, Globulin 2.6, Albumin/Globulin Ratio 1.3 I & O for Last 24 hours: Intake & Output 04/19/21 04/20/21 04/21/21 04/22/21 23:59 23:59 23:59 23:59 Intake Total 500 / 500 1488 / 1842 1698 / 1698 Output Total 1200 / 1700 1300 / 1300 Balance 500 / 500 288 / 142 398 / 398 Weight 225 lb 208 lb 1 oz 219 lb Microbiology Reports for the Last 24 Hours: Microbiology 04/20/21 23:10 Blood - Abscess Blood Culture - Preliminary 04/20/21 23:10 Blood - Abscess Blood Culture - Preliminary Gram Positive Cocci 04/21/21 08:30 Foot,Right - Drainage Gram Stain - Final 04/21/21 08:30 Foot,Right - Drainage Wound Culture - Preliminary Narrative: JORGE shows: RT JORGE=1.3 LT JOGRE=1.1 RT TBI=1.0 LT TBI=0.9 Normal waveforms bilaterally Diminished DP pulses RLE Otherwise normal PT pulses bilaterally and DP pulse LLE. - Constitutional no acute distress, average body habitus - *Routine HEENT Exam Head: Present: normocephalic, atraumatic Eye: Present: EOMI, PERRL ENT: Present: mucous membranes moist - *Routine Neck Exam Present: supple, full ROM, normal carotid upstroke. Absent: JVD, carotid bruit, lymphadenopathy - *Routine Respiratory Exam Present: CTA bilaterally - *Routine Cardiovascular Exam Present: RRR, Normal S1, Normal S2. Absent: murmur - *Routine Abdominal Exam Present: soft, normoactive bowel sounds. Absent: tenderness, distended - *Routine Extremities Exam Present: edema, full ROM, pulses intact, normal capillary refill, amputation (Left 2nd toe, Right 2nd toe). Absent: cyanosis, clubbing - *Routine Skin Exam Present: erythema, lesions (RLE lesion with dressing intact). Absent: rash - *Routine Neurological Exam Present: alert, oriented X3, CN II-XII intact. Absent: sensory deficit, motor deficit Progress Note: A&P (1) Ulcer of right foot Status: Acute (2) Cellulitis Status: Acute (3) Edema Status: Acute (4) History of amputation of toe Status: Acute (5) History of partial amputation of toe of left foot Status: Acute (6) Factor 5 Leiden mutation, heterozygous Status: Chronic (7) Tobacco use Status: Chronic (8) Chronic back pain greater than 3 months duration Status: Acute (9) Coagulopathy Status: Chronic Assessm
--- NOTE | 2021-04-22 12:43 | HMH.ACPN2 ---
Internal Medicine - PN: Subj *Date: 04/22/21 *Time: 20:30 Interval history: 55-year-old male patient lying in bed resting quietly, he reports pain is at a tolerable level denies any chest pain or shortness of breath during night. Dressing intact to right lower extremity podiatry has been in to see patient this morning awaiting to see their recommendations. Discussed possible home health care patient is agreeable to home health care coming in and doing his dressing changes explained this will be an extended timeframe and he would have difficulty changing his own foot dressing. He agreed to this since then he reported he is familiar and known to the home health nurse Exam Vital signs and Labs for Last 24 Hours: Temp Pulse Resp BP Pulse Ox 97.5 F L 77 18 136/71 97 04/22/21 08:00 04/22/21 08:00 04/22/21 08:00 04/22/21 08:00 04/22/21 08:00 Laboratory Results - last 24 hr 04/21/21 05:40: Hgb 12.6 L D 04/22/21 05:50: WBC 7.6 D, RBC 4.61, Hgb 12.5 L, Hct 38.2 L, MCV 82.9, MCH 27.0, MCHC 32.6, RDW 14.7, Plt Count 209, MPV 8.8, Neut % (Auto) 65.5, Lymph % (Auto) 27.0, [place] % (Auto) 4.2, Eos % (Auto) 2.9, Baso % (Auto) 0.3, Neut # (Auto) 5.0, Lymph # (Auto) 2.1, [place] # (Auto) 0.3, Eos # (Auto) 0.2, Baso # (Auto) 0.0 04/22/21 05:50: Sodium 138, Potassium 4.4 D, Chloride 103, Carbon Dioxide 34 H, Anion Gap 5.4, BUN 12, Creatinine 0.80, Estimated Creat Clear 143, Estimated GFR 100, Est GFR ( Amer) 121, Glucose 109 H, Calcium 8.1 L, Total Bilirubin 0.4, AST 19, ALT 9 L, Alkaline Phosphatase 95, Total Protein 5.9 L, Albumin 3.3 L, Globulin 2.6, Albumin/Globulin Ratio 1.3 I & O for Last 24 hours: Intake & Output 04/19/21 04/20/21 04/21/21 04/22/21 23:59 23:59 23:59 23:59 Intake Total 500 / 500 1488 / 1842 1698 / 1698 Output Total 1200 / 1700 1300 / 1300 Balance 500 / 500 288 / 142 398 / 398 Weight 225 lb 208 lb 1 oz 219 lb Microbiology Reports for the Last 24 Hours: Microbiology 04/20/21 23:10 Blood - Abscess Blood Culture - Preliminary 04/20/21 23:10 Blood - Abscess Blood Culture - Preliminary Gram Positive Cocci 04/21/21 08:30 Foot,Right - Drainage Gram Stain - Final 04/21/21 08:30 Foot,Right - Drainage Wound Culture - Preliminary - Constitutional no acute distress - *Routine HEENT Exam Head: Present: normocephalic Eye: Present: EOMI ENT: Present: mucous membranes moist - *Routine Neck Exam Present: trachea midline. Absent: tracheal deviation - *Routine Respiratory Exam Present: CTA bilaterally. Absent: accessory muscle use - *Routine Cardiovascular Exam Present: RRR - *Routine Abdominal Exam Present: soft, normoactive bowel sounds. Absent: tenderness, guarding - *Routine Extremities Exam Present: edema, pulses intact. Absent: cyanosis, clubbing, calf tenderness - *Routine Skin Exam Present: dry, warm, wounds. Absent: intact, cyanosis - *Routine Neurological Exam Present: alert, oriented X3. Absent: sensory deficit - Routine Psychiatric Exam Present: normal affect, normal thought process. Absent: auditory hallucinations, visual hallucinations Assessment and Plan (1) Ulcer of right foot Status: Acute Category: Medical Code(s): L97.519 - Non-pressure chronic ulcer of other part of right foot with unspecified severity (2) Cellulitis Status: Acute Qualifiers: Site of cellulitis: extremity Site of cellulitis of extremity: lower extremity Laterality: right Qualified Code(s): L03.115 - Cellulitis of right lower limb Category: Medical Code(s): L03.90 - Cellulitis, unspecified (3) Edema Status: Acute Category: Medical Code(s): R60.9 - Edema, unspecified (4) History of amputation of toe Status: Acute Category: Medical Code(s): Z89.429 - Acquired absence of other toe(s), unspecified side (5) History of partial amputation of toe of left foot Status: Acute Category: Surgical Code(s):
--- NOTE | 2021-04-22 13:34 | PC.NURSE ---
Addendum entered by Velma Mock RN 04/22/21 14:21: Vanco dose will be late d/t wait for vanco trough. Original Note: Spoke to Lalitha in lab about vanco trough, states that she is still working on it and will notify when it is complete.
--- NOTE | 2021-04-22 14:02 | CA_ITS ---
APPROVED REPORT Bilateral Lower Extremity Venous Study for DVT. 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 Jewel: RANDEE HugoT Indications Lower Extremity Pain: Bilateral HX of DVT,Factor 5, s/p toe amputation Risk Factors Prior Phlebitis/DVT Past History DVT : Medications Pt on Eliqus Vein Imaging CFV (R): compressive, spontaneous, phasic, augmentation FEM (R): compressive, spontaneous, phasic, augmentation POP (R): compressive, spontaneous, phasic, augmentation PTV (R): Compressible GSV (R): Compressible Peroneals (R):Compressible GAS (R): Compressible CFV (L): compressive, spontaneous, phasic, augmentation FEM (L): compressive, spontaneous, phasic, augmentation POP (L): compressive, spontaneous, phasic, augmentation PTV (L): Compressible GSV (L): Compressible Peroneals (L):Compressible GAS (L): Compressible Findings Study suggests no evidence of DVT or SVT of the bilateral lower extremities. There is a 6.7 X 2.4 cm complex lesion seen in the left popliteal fossa, ? Tillman's cyst. Conclusion Study suggests no evidence of DVT or SVT of the bilateral lower extremities. There is a 6.7 X 2.4 cm complex cystic lesion seen in the left popliteal fossa, consistent with Tillman's cyst. Electronically signed by : Damien Ribeiro MD 04/22/2021 15:26:14
[2021-04-22 14:05] LABS: Vancomycin,Trough 10.6 ug/mL (5.0-10.0)
--- NOTE | 2021-04-22 14:30 | HMH.PHACONS ---
- Pharmacy Consult Date: 04/22/21 Time: 14:30 Referring provider: DR. CROWE Reason for Consult:: VANCOMYCIN TROUGH LEVEL AND DOSE CHANGE Allergies and ADEs:: Allergies Allergy/AdvReac Type Severity Reaction Status Date / Time No Known Allergies Allergy Verified 12/10/20 11:00 Home Medications:: Home Medications Medication Instructions Recorded Confirmed Type apixaban 5 mg tablet 5 mg PO BID #180 tab 06/18/20 04/21/21 Rx gabapentin 600 mg tablet 600 mg PO TID tab 06/18/20 04/21/21 History oxycodone-acetaminophen 10 mg-325 1 tab PO Q6HP PRN tab 06/18/20 04/21/21 History mg tablet potassium chloride 10 mEq 10 meq PO DAILY #90 tab 06/18/20 04/21/21 Rx tablet,extended release Amitriptyline HCl [Elavil 50mg 50 mg PO HS 04/20/21 04/21/21 History tablet] Trazodone HCl 150 mg PO HS 04/20/21 04/21/21 History Height: 1.88 m Weight: 99.337 kg Laboratory Results:: Laboratory Results - last 24 hr 04/21/21 05:40: Hgb 12.6 L D 04/22/21 05:50: WBC 7.6 D, RBC 4.61, Hgb 12.5 L, Hct 38.2 L, MCV 82.9, MCH 27.0, MCHC 32.6, RDW 14.7, Plt Count 209, MPV 8.8, Neut % (Auto) 65.5, Lymph % (Auto) 27.0, [place] % (Auto) 4.2, Eos % (Auto) 2.9, Baso % (Auto) 0.3, Neut # (Auto) 5.0, Lymph # (Auto) 2.1, [place] # (Auto) 0.3, Eos # (Auto) 0.2, Baso # (Auto) 0.0 04/22/21 05:50: Sodium 138, Potassium 4.4 D, Chloride 103, Carbon Dioxide 34 H, Anion Gap 5.4, BUN 12, Creatinine 0.80, Estimated Creat Clear 143, Estimated GFR 100, Est GFR ( Amer) 121, Glucose 109 H, Calcium 8.1 L, Total Bilirubin 0.4, AST 19, ALT 9 L, Alkaline Phosphatase 95, Total Protein 5.9 L, Albumin 3.3 L, Globulin 2.6, Albumin/Globulin Ratio 1.3 04/22/21 11:01: Vancomycin Trough 10.6 H Medical History: Denies:: Coronary Artery Disease, Diabetes Mellitus Type 2, Hyperlipidemia, Hypertension Assessment and Plan (1) Ulcer of right foot Status: Acute Category: Medical Code(s): L97.519 - Non-pressure chronic ulcer of other part of right foot with unspecified severity (2) Cellulitis Status: Acute Qualifiers: Site of cellulitis: extremity Site of cellulitis of extremity: lower extremity Laterality: right Qualified Code(s): L03.115 - Cellulitis of right lower limb Category: Medical Code(s): L03.90 - Cellulitis, unspecified (3) Edema Status: Acute Category: Medical Code(s): R60.9 - Edema, unspecified (4) History of amputation of toe Status: Acute Category: Medical Code(s): Z89.429 - Acquired absence of other toe(s), unspecified side (5) History of partial amputation of toe of left foot Status: Acute Category: Surgical Code(s): Z89.422 - Acquired absence of other left toe(s) (6) Factor 5 Leiden mutation, heterozygous Status: Chronic Category: Medical Code(s): D68.51 - Activated protein C resistance (7) Tobacco use Status: Chronic Category: Social Hx Code(s): Z72.0 - Tobacco use (8) Chronic back pain greater than 3 months duration Status: Acute Category: Medical Code(s): M54.9 - Dorsalgia, unspecified; G89.29 - Other chronic pain (9) Coagulopathy Status: Chronic Category: Medical Code(s): D68.9 - Coagulation defect, unspecified - Assessment and plan all Dx Assessment and Plan for all problems:: BASED ON PATIENT FACTORS AND VANCOMYCIN TROUGH LEVEL OF 10.6, RECOMMEND CHANGING DOSE TO 2,250MG EVERY 12 HOURS. PHARMACY WILL CONTINUE TO MONITOR AND ADJUST DOSE APPROPRIATE. -DARRELL ANGEL PHARMD
[2021-04-22 15:40] VITALS: BP 136/65; PULSE 74; RESP 17; TEMP 36.5; O2SAT 98
--- NOTE | 2021-04-22 17:38 | PC.NURSE ---
No acute changes. Remains on room air, no s/s of resp distress. HR regular. Abdomen soft, non-tender w/ active BS in all quads. Voiding w/o difficulty. No BM this shift. Dressing to R foot c/d/i. Trace edema noted in LLE. R foot elevated on pillow. Pt assisted w/ adl's, standby assist. He was assisted x1 in shower. He was treated once for pain, no complaints noted since that time. He is currently sitting in bed watching TV. Call gladys w/in reach.
[2021-04-22 20:00] VITALS: BP 126/73; PULSE 74; RESP 16; TEMP 36.6; O2SAT 96
--- NOTE | 2021-04-23 03:39 | PC.NURSE ---
Patient was pleasant throughout shift and rested throughout shift. VSS. Patient did complain of pain controlled with po pain medications. Patients Right lower extremity dressing is clean dry and intact. Patient voiced no further concerns to RN.
[2021-04-23 04:00] VITALS: BP 133/76; PULSE 72; RESP 16; TEMP 36.6; O2SAT 96
[2021-04-23 05:09] VITALS: BMI 28.3
[2021-04-23 05:50] LABS: Basophils % 0.4 % (0.1-2.0); Eosinophils # 0.2 K/mm3 (0.0-0.4); Eosinophils % 2.7 % (0.1-12.0); Hematocrit 38.9 % (42.0-52.0); Hemoglobin 12.8 g/dL (14.1-18.0); Lymphocytes # 1.4 K/mm3 (0.7-4.5); Lymphocytes % 17.2 % (10-50); Mean Corpuscular HGB Conc 32.9 g/dL (31.8-35.4); Mean Corpuscular Hemoglobin 26.8 pg (27.0-31.2); Mean Corpuscular Volume 81.5 fl (80-94); Mean Platelet Volume 8.5 fl (7.4-10.4); Monocytes # 0.4 K/mm3 (0.1-1.0); Monocytes % 5.3 % (1.7-9.3); Neutrophils # 6.1 K/mm3 (1.8-7.8); Neutrophils % 74.4 % (37.0-80.0); Platelet Count 196 K/mm3 (142-424); Red Blood Count 4.78 M/mm3 (4.60-6.20); Red Cell Distribution Width 14.6 % (11.5-17.5); White Blood Count 8.2 K/mm3 (4.8-10.8)
[2021-04-23 06:00] LABS: Chloride 100 mmol/L (98-107)
[2021-04-23 06:01] LABS: Potassium 3.8 mmoL/L (3.5-5.1); Sodium 136 mmol/L (136-145)
[2021-04-23 06:03] LABS: Alanine Aminotransferase 8 U/L (12-78); Albumin Level 3.3 g/dl (3.5-5.0); Albumin/Globulin Ratio 1.2 (1.1-1.8); Alkaline Phosphatase 99 U/L (38-126); Anion Gap 5.8 mEq/L (5-15); Aspartate Amino Transferase 19 U/L (17-59); Bilirubin,Total 0.4 mg/dl (0.2-1.3); Blood Urea Nitrogen 17 mg/dl (9-20); Carbon Dioxide 34 mmol/L (22.0-30.0); Creatinine Clearance Estimated 129 mL/min (50-200); Estimated Glomerular Filt Rate 87 ml/min (>60); GFR (African American) 105 ML/MIN (>60); Globulin 2.7 g/dL (1.3-3.2)
[2021-04-23 06:04] LABS: Calcium 8.1 mg/dl (8.4-10.2); Glucose 105 mg/dl (74-100)
[2021-04-23 07:46] VITALS: BP 118/76; PULSE 77; RESP 19; TEMP 36.7; O2SAT 97
--- NOTE | 2021-04-23 10:01 | HMH.ORTHPN ---
Subjective Date: 04/23/21 <Lyla Austin - 04/23/21 10:01> Time: 08:00 <Lyla Austin - 04/23/21 10:01> Principal diagnosis: Right foot ulcer, cellulitis <Lyla Austin - 04/23/21 10:01> Interval history: Patient is resting comfortably in bed this morning. Dressing change without complication. He denies any new complaints. <RitikaMaame 04/23/21 13:10> PN: Obj Ex Vital signs: Temp Pulse Resp BP Pulse Ox 98.0 F 77 19 118/76 97 04/23/21 07:46 04/23/21 07:46 04/23/21 07:46 04/23/21 07:46 04/23/21 07:46 <Lyla Austin - 04/23/21 10:01> - Constitutional no acute distress <Maame Yost 04/23/21 13:12> - Routine HEENT Exam Head: Present: normocephalic <RitikaMaame 04/23/21 13:12> Eye: Present: EOMI <RitikaMaame 04/23/21 13:12> ENT: Present: mucous membranes moist <RitikaMaame 04/23/21 13:12> - Routine Neck Exam Present: supple <RitikaMaame 04/23/21 13:12> - Routine Cardiovascular Exam Present: RRR <RitikaMaame 04/23/21 13:12> - Routine Abdominal Exam Present: soft <Maame Yost 04/23/21 13:12> - Routine Extremities Exam Present: pulses intact <RitikaMaame 04/23/21 13:12> - Detailed Lower Extremity Exam Top foot image: 1 - Decreased edema and erythema around the right 1st MPJ. Sutures are clean dry and intact to previous ulcer site, ulcer was surgical excised 04/21/21. No new drainage, malodor or purulence. Pulses intact. <Maame Yost 04/23/21 13:12> Progress Note: A&P (1) Ulcer of right foot Status: Acute (2) Cellulitis Status: Acute (3) Edema Status: Acute (4) History of amputation of toe Status: Acute (5) History of partial amputation of toe of left foot Status: Acute (6) Factor 5 Leiden mutation, heterozygous Status: Chronic (7) Tobacco use Status: Chronic (8) Chronic back pain greater than 3 months duration Status: Acute (9) Coagulopathy Status: Chronic <Lyla Austin Alvaro - 04/23/21 10:01> (1) Ulcer of right foot Status: Acute (2) Cellulitis Status: Acute (3) Edema Status: Acute (4) History of amputation of toe Status: Acute (5) History of partial amputation of toe of left foot Status: Acute (6) Factor 5 Leiden mutation, heterozygous Status: Chronic (7) Tobacco use Status: Chronic (8) Chronic back pain greater than 3 months duration Status: Acute (9) Coagulopathy Status: Chronic <Maame Yost - 04/23/21 13:12> Assessment and Plan for All Diagnoses:: Sx 04/21/21, S/P 1. Left plantar foot callus debridement, 2. Right 3rd toe callus debridement, 3. Right 1st MPJ ulcer debridement, excision with delayed primary closure, 4. Right 1st metatarsal bone biopsy, 5. Right first MPJ medial capsulorrhaphy POD#2 04/21/21, intraop specimens: Right ulcer tissue pathology: pending Right first metatarsal bone pathology: pending Right first metatarsal bone culture: GNR, GPC Microbiology 04/21/21 08:30 Foot,Right - Drainage Gram Stain - Final 04/21/21 12:00 Bone - Right Big Bone Culture - Preliminary 04/21/21 08:30 Foot,Right - Drainage Wound Culture - Preliminary Gram Negative Rods Gram Negative Rods#2 04/20/21 23:10 Blood - Abscess Blood Culture - Preliminary Staphylococcus intermedius 04/20/21 23:10 Blood - Abscess Blood Culture - Preliminary Gram Positive Cocci Laboratory Tests 04/20/21 04/20/21 04/22/21 19:15 19:15 05:50 WBC 7.6 D ESR 62 H Creatinine Estimated GFR Glucose C-Reactive Protein 20.0 H Vancomycin Trough 04/22/21 04/23/21 04/23/21 11:01 05:13 05:13 WBC 8.2 ESR Creatinine 0.90 Estimated GFR 87 Glucose 105 H C-Reactive Protein Vancomycin Trough 10.6 H
--- NOTE | 2021-04-23 10:41 | SW/DCPLANNER ---
PATIENT IS DISCHARGING HOME TODAY, HE WILL BE DOING ORAL ANTIBIOTICS LEVAQUIN AND CLINDAMYCIN AND HAS ELECTED TO DO MEDS TO BEDS... HE RECEIVED A DRESSING CHANGE TODAY AND IS TO FOLLOW FOR ANOTHER DSG CHANGE IN THE OFFICE ON MONDAY AND FOLLOW UP WITH DR LUCAS OFFICE THE SAME DAY....
--- NOTE | 2021-04-23 12:57 | HMH.DCSUM ---
General - General Admission date:: 04/21/21 Discharge date: 04/23/21 HPI HPI: 55-year-old male patient presents to the emergency department with bilateral lower extremity edema left greater than right. He reports 2 days ago the redness and edema increased in his right lower extremity and he has a wound on his right inner great toe. In the emergency department CT of his right foot showed a large ulceration involving soft tissue at the first metatarsophalangeal joint. Currently podiatry is with patient and planning on taking him to surgery today. He denies any chest pain/pressure or shortness of breath. He also denies any nausea/vomiting/diarrhea or fever/chills/body aches. He is currently on Eliquis for a remote DVT in his left lower extremity 04/20/[address]: FINDINGS: Bones/joints: Osteopenia. No acute fracture or dislocation. No focal bony lesions. Soft tissues: Diffuse soft tissue swelling. Skin thickening. No fluid collection to suggest abscess. No necrotizing fasciitis. There is a large ulceration involving the medial aspect of the foot at the level of the 1st metatarsophalangeal joint. IMPRESSION: 1. Large ulceration involving the soft tissues at the level of the 1st metatarsophalangeal joint. 2. No acute fracture or dislocation or evidence for osteomyelitis. 3. Diffuse cellulitis. Electronically signed by Preston Crawley MD Hospital Course Hospital Course: Laboratory Tests 04/20/21 04/20/21 04/20/21 19:15 19:15 19:15 WBC 7.9 RBC 5.61 Hgb 15.2 Hct 45.4 MCV 80.9 MCH 27.0 MCHC 33.4 RDW 14.5 Plt Count 228 MPV 8.1 Neut % (Auto) 68.0 Lymph % (Auto) 26.0 [place] % (Auto) 4.1 Eos % (Auto) 1.5 Baso % (Auto) 0.4 Neut # (Auto) 5.4 Lymph # (Auto) 2.1 [place] # (Auto) 0.3 Eos # (Auto) 0.1 Baso # (Auto) 0.0 ESR 62 H Sodium 140 Potassium 4.4 Chloride 104 Carbon Dioxide 31 H Anion Gap 9.4 BUN 18 Creatinine 0.90 Estimated Creat Clear 131 Estimated GFR 87 Est GFR ( Amer) 105 Glucose 100 Calcium 8.7 Total Bilirubin AST ALT Alkaline Phosphatase C-Reactive Protein NT-Pro-B Natriuret Pep Total Protein Albumin Globulin Albumin/Globulin Ratio Vancomycin Trough SARS-CoV-2 (PCR) Influenza A Untype (PCR) Influenza Type B (PCR) 04/20/21 04/20/21 04/21/21 19:15 23:10 05:40 WBC 5.7 D RBC 4.62 Hgb 12.6 L D Hct 37.5 L MCV 81.1 MCH 27.2 MCHC 33.5 RDW 14.6 Plt Count 223 MPV 8.2 Neut % (Auto) 52.9 Lymph % (Auto) 37.5 [place] % (Auto) 5.7 Eos % (Auto) 3.4 Baso % (Auto) 0.5 Neut # (Auto) 3.0 Lymph # (Auto) 2.2 [place] # (Auto) 0.3 Eos # (Auto) 0.2 Baso # (Auto) 0.0 ESR Sodium Potassium Chloride Carbon Dioxide Anion Gap BUN Creatinine Estimated Creat Clear Estimated GFR Est GFR ([facility]) Glucose Calcium Total Bilirubin AST ALT Alkaline Phosphatase C-Reactive Protein 20.0 H NT-Pro-B Natriuret Pep Total Protein Albumin Globulin Albumin/Globulin Ratio Vancomycin Trough SARS-CoV-2 (PCR) Not detected Influenza A Untype (PCR) Not detected Influenza Type B (PCR) Not detected 04/21/21 04/21/21 04/22/21 05:40 05:40 05:50 WBC 7.6 D RBC 4.61 Hgb 12.5 L Hct 38.2 L MCV 82.9 MCH 27.0 MCHC 32.6 RDW 14.7 Plt Count 209 MPV 8.8 Neut % (Auto) 65.5 Lymph % (Auto) 27.0 [place] % (Auto) 4.2 Eos % (Auto) 2.9 Baso % (Auto) 0.3 Neut # (Auto) 5.0 Lymph # (Auto) 2.1 [place] # (Auto) 0.3 Eos # (Auto) 0.2 Baso # (Auto) 0.0 ESR Sodium 139 Potassium 3.6 Chloride 105 Carbon Dioxide 30 Anion Gap 7.6 BUN 14 Creatinine 0.70 D Estimated Creat Clear 168 Estimated GFR 116 Est GFR ( A
--- NOTE | 2021-04-23 15:24 | PC.NURSE ---
Johan pan returned to him by Bety from pharmacy
[2021-04-23 16:00] VITALS: BP 120/78; PULSE 73; RESP 20; TEMP 36.8; O2SAT 97
== END 2021-04-23 18:02 | disposition home or self-care (01) ==
LOC: UTC 17:44 → ER 18:48 → 2ND 23:08
PROVIDERS: Emergency Medicine; Nurse Practitioner Family; Podiatrist; Admitting Provider Emergency Medicine; Emergency Provider Emergency Medicine; PCP Family Medicine; Visit Provider Emergency Medicine
PROC: (CPT 11042; principal; 2021-04-21 10:45)
DX: L97.512 Non-pressure chronic ulcer of other part of right foot with fat layer exposed (principal); L97.412 Non-pressure chronic ulcer of right heel and midfoot with fat layer exposed; L03.115 Cellulitis of right lower limb; D68.51 Activated protein C resistance; F17.210 Nicotine dependence, cigarettes, uncomplicated; Z20.822 Contact with and (suspected) exposure to COVID-19; Z79.01 Long term (current) use of anticoagulants; M20.11 Hallux valgus (acquired), right foot; G62.9 Polyneuropathy, unspecified; Z86.718 Personal history of other venous thrombosis and embolism; L84 Corns and callosities; R06.02 Shortness of breath
CPT/HCPCS: 11042; 11044; 28270; 36415; 73630; 73700; 80048; 80053; 80202; 83880; 85025; 85651; 86140; 87040; 87070; 87077; 87186; 87205; 88304; 88305; 88307; 93306; 93923; 93970; 96365; 97162; 99291; G0378; J1956; J2405; J3370; U0003

== ENCOUNTER → 2021-04-26 16:56 | Outpatient (CLI) | payer MEDICARE, MEDICAID, SELFPAY ==
--- NOTE | 2021-04-26 17:07 | XR_ITS ---
PROCEDURE: XR FOOT WT BEARING RT 3V CLINICAL INDICATION: post op Follow-up surgery/debridement, foot pain COMPARISON: No exams were available for comparison FINDINGS: There are osteoarthritic changes at the 1st MTP joint with mild hallux valgus with 1 cm lateral subluxation of the proximal phalanx of the great toe. Bandage artifact is present medially at the 1st MTP region. No erosive changes evident. Hypertrophic changes are present at the distal aspect of the 1st metatarsal. Soft tissue swelling is present dorsally at the MTP region as seen on the lateral view. There is a 3 mm linear opacity along the lateral and plantar aspect of the proximal phalanx of the 1st toe consistent with a small foreign body. There has been prior amputation at the 2nd MTP joint and there is flexion deformity of the 3rd 4th and 5th toes. IMPRESSION: Degenerative changes as described above with no convincing evidence of acute osteomyelitis. Foreign body along the plantar surface of the 1st MTP joint Dictated by: Damien Ribeiro MD 04/27/2021 07:45 Damien Ribeiro MD in [place] 04/27/2021 07:45
[2021-04-26 17:13] LABS: Basophils % 0.4 % (0.1-2.0); Eosinophils # 0.1 K/mm3 (0.0-0.4); Eosinophils % 1.8 % (0.1-12.0); Hematocrit 36.9 % (42.0-52.0); Hemoglobin 11.9 g/dL (14.1-18.0); Lymphocytes # 1.7 K/mm3 (0.7-4.5); Lymphocytes % 22.8 % (10-50); Mean Corpuscular HGB Conc 32.1 g/dL (31.8-35.4); Mean Corpuscular Hemoglobin 26.2 pg (27.0-31.2); Mean Corpuscular Volume 81.6 fl (80-94); Mean Platelet Volume 8.1 fl (7.4-10.4); Monocytes # 0.4 K/mm3 (0.1-1.0); Monocytes % 5.5 % (1.7-9.3); Neutrophils # 5.1 K/mm3 (1.8-7.8); Neutrophils % 69.4 % (37.0-80.0); Platelet Count 255 K/mm3 (142-424); Red Blood Count 4.52 M/mm3 (4.60-6.20); Red Cell Distribution Width 13.9 % (11.5-17.5); White Blood Count 7.4 K/mm3 (4.8-10.8)
[2021-04-26 17:37] LABS: Chloride 104 mmol/L (98-107)
[2021-04-26 17:38] LABS: Potassium 4.3 mmoL/L (3.5-5.1); Sodium 140 mmol/L (136-145)
[2021-04-26 17:40] LABS: Alanine Aminotransferase 11 U/L (12-78); Albumin Level 3.6 g/dl (3.5-5.0); Albumin/Globulin Ratio 1.3 (1.1-1.8); Alkaline Phosphatase 107 U/L (38-126); Anion Gap 8.3 mEq/L (5-15); Aspartate Amino Transferase 23 U/L (17-59); Bilirubin,Total 0.7 mg/dl (0.2-1.3); Blood Urea Nitrogen 13 mg/dl (9-20); Carbon Dioxide 32 mmol/L (22.0-30.0); Estimated Glomerular Filt Rate 100 ml/min (>60); GFR (African American) 121 ML/MIN (>60); Globulin 2.7 g/dL (1.3-3.2); Glucose 100 mg/dl (74-100); Total Protein,Serum 6.3 g/dl (6.3-8.2)
[2021-04-26 17:41] LABS: Calcium 8.6 mg/dl (8.4-10.2)
[2021-04-26 18:40] LABS: Erythrocyte Sedimentation Rate 117 mm/hr (0-20)
[2021-04-27 15:22] LABS: C-Reactive Protein 164.5 mg/L (0-4)
== END ==
PROVIDERS: Visit Provider Nurse Practitioner
DX: Z98.890 Other specified postprocedural states (principal); L03.90 Cellulitis, unspecified
CPT/HCPCS: 36415; 73630; 80053; 85025; 85651; 86140

== ENCOUNTER 2021-04-28 18:24 | Observation (INO) | payer MEDICARE, MEDICAID, SELFPAY ==
[2021-04-28 18:24] VITALS: BP 170/100; PULSE 83; RESP 16; TEMP 36.9; O2SAT 97; BMI 30.2
--- NOTE | 2021-04-28 18:46 | ECG_ITS ---
APPROVED REPORT Exam: Resting ECG HR:79 bpm ECG Measurements Heart Rate 79 AXES SC 138 P 59 QRSd 92 QRS 33 QT 370 T 69 QTc 424 Conclusion Normal sinus rhythm Normal ECG Electronically signed by : Mahamed Chapman, 04/29/2021 17:42:42
[2021-04-28 18:49] LABS: Basophils # 0.1 K/mm3 (0-0.2); Basophils % 0.8 % (0.1-2.0); Chloride 108 mmol/L (98-107); Eosinophils # 0.1 K/mm3 (0.0-0.4); Eosinophils % 1.1 % (0.1-12.0); Hematocrit 38.6 % (42.0-52.0); Hemoglobin 12.9 g/dL (14.1-18.0); Lymphocytes # 1.6 K/mm3 (0.7-4.5); Lymphocytes % 19.7 % (10-50); Mean Corpuscular HGB Conc 33.5 g/dL (31.8-35.4); Mean Corpuscular Hemoglobin 26.6 pg (27.0-31.2); Mean Corpuscular Volume 79.3 fl (80-94); Monocytes # 0.3 K/mm3 (0.1-1.0); Monocytes % 4.1 % (1.7-9.3); Neutrophils # 5.9 K/mm3 (1.8-7.8); Neutrophils % 74.3 % (37.0-80.0); Platelet Count 313 K/mm3 (142-424); Potassium 3.7 mmoL/L (3.5-5.1); Red Blood Count 4.87 M/mm3 (4.60-6.20); Red Cell Distribution Width 14.7 % (11.5-17.5); Sodium 144 mmol/L (136-145); White Blood Count 7.9 K/mm3 (4.8-10.8)
--- NOTE | 2021-04-28 18:50 | XR_ITS ---
PROCEDURE INFORMATION: Exam: XR Chest Exam date and time: 04/28/21 06:50 PM Age: 55 years old Clinical indication: Patient HX: Productive cough TECHNIQUE: Imaging protocol: XR of the chest. Views: 1 view. COMPARISON: No relevant prior studies available. FINDINGS: Lungs: Unremarkable. No consolidation. Pleural spaces: Unremarkable. No pleural effusion. No pneumothorax. Heart/Mediastinum: Unremarkable. No cardiomegaly. Bones/joints: Unremarkable. IMPRESSION: No acute findings.
[2021-04-28 18:51] LABS: Blood Urea Nitrogen 15 mg/dl (9-20); Creatinine Clearance Estimated 154 mL/min (50-200); Estimated Glomerular Filt Rate 100 ml/min (>60); GFR (African American) 121 ML/MIN (>60)
[2021-04-28 18:52] LABS: Alanine Aminotransferase 15 U/L (12-78); Albumin Level 4.2 g/dl (3.5-5.0); Albumin/Globulin Ratio 1.3 (1.1-1.8); Alkaline Phosphatase 117 U/L (38-126); Anion Gap 10.7 mEq/L (5-15); Aspartate Amino Transferase 23 U/L (17-59); Bilirubin,Total 0.7 mg/dl (0.2-1.3); Carbon Dioxide 29 mmol/L (22.0-30.0); Globulin 3.2 g/dL (1.3-3.2); Glucose 113 mg/dl (74-100); Total Protein,Serum 7.4 g/dl (6.3-8.2)
[2021-04-28 19:01] VITALS: BP 158/102; PULSE 84; RESP 15; O2SAT 96
[2021-04-28 19:17] LABS: Coronavirus 19, PCR Not Detected (NotDetected); Influenza A, PCR Not Detected (NotDetected); Influenza B, PCR Not Detected (NotDetected)
--- NOTE | 2021-04-28 19:18 | PC.NURSE ---
called [facility] for vancomycin consult and spoke with Nura
--- NOTE | 2021-04-28 19:29 | PC.NURSE ---
patient reports medication list has not changed since last recent admission
[2021-04-28 19:30] LABS: Procalcitonin 0.047 ng/mL (0.0-2.0)
[2021-04-28 19:38] LABS: Erythrocyte Sedimentation Rate 53 mm/hr (0-20)
--- NOTE | 2021-04-28 19:49 | HMH.EDAMS ---
ED Disposition Clinical Impression: Cellulitis Qualifiers: Site of cellulitis: extremity Site of cellulitis of extremity: lower extremity Laterality: right Qualified Code(s): L03.115 - Cellulitis of right lower limb Disposition: Admitted as Observation Condition on Discharge: Fair - Critical Care Critical Care Time: No Attestation: On 04/28/21, the high probability of a clinically significant, sudden or life threatening deterioration of the following system(s) required my full and direct attention, intervention and personal management. The time I documented below is in addition to time spent performing reported procedures but includes the following listed in this critical care notation. Medical Decision Making - Medical Records Medical records reviewed: Yes: I reviewed the patient's medical records. - Benja Inquiry Pt receiving controlled substance: No Vital Signs: 04/28/21 18:24 Temperature 98.4 F Temperature Source Oral Pulse Rate [Right] 83 Respiratory Rate 16 Blood Pressure [Right Arm] 170/100 H Blood Pressure Mean [Right Arm] 123 02 Sat by Pulse Oximetry 97 Oxygen Delivery Method Room Air - Lab Data Lab results reviewed: Yes: I reviewed the patient's lab results. Lab Results 04/28/21 18:15: WBC 7.9, RBC 4.87, Hgb 12.9 L, Hct 38.6 L, MCV 79.3 L, MCH 26.6 L, MCHC 33.5, RDW 14.7, Plt Count 313, MPV 8.0, Neut % (Auto) 74.3, Lymph % (Auto) 19.7, [place] % (Auto) 4.1, Eos % (Auto) 1.1, Baso % (Auto) 0.8, Neut # (Auto) 5.9, Lymph # (Auto) 1.6, [place] # (Auto) 0.3, Eos # (Auto) 0.1, Baso # (Auto) 0.1, ESR 53 H 04/28/21 18:15: Sodium 144, Potassium 3.7, Chloride 108 H, Carbon Dioxide 29, Anion Gap 10.7, BUN 15, Creatinine 0.80, Estimated Creat Clear 154, Estimated GFR 100, Est GFR ( Amer) 121, Glucose 113 H, Calcium 9.0, Total Bilirubin 0.7, AST 23, ALT 15 D, Alkaline Phosphatase 117, Total Protein 7.4, Albumin 4.2, Globulin 3.2, Albumin/Globulin Ratio 1.3, Procalcitonin 0.047 04/28/21 18:15: Lactate 1.0 04/28/21 19:08: SARS-CoV-2 (PCR) Not detected, Influenza A Untype (PCR) Not detected, Influenza Type B (PCR) Not detected Result diagrams: 04/28/21 18:15 04/28/21 18:15 Orders (Tests/Meds): ED MEDICATIONS Generic Name Dose Route Start Last Admin Trade Name Elaine PRN Reason Stop Dose Admin Ceftriaxone Sodium 1 gm/ 100 mls @ 200 mls/hr 04/28/21 19:15 Sodium Chloride IV 05/12/21 19:14 Q12H KAREN Protocol Vancomycin HCl 1,500 mg/ 250 mls @ 125 mls/hr 04/28/21 20:00 Sodium Chloride IV 05/12/21 19:59 Q8H KAREN Miscellaneous 1 each 04/28/21 19:15 Vancomycin Consult Request * 05/28/21 19:14 CONSULT PHARMACY KAREN ORDERS Category Date Time Status Acetaminophen Stat Lab 04/28/21 18:15 Received Blood alcohol [Ethyl Alcohol] Stat Lab 04/28/21 18:15 Received Drug Screen,Urine Stat Lab 04/28/21 18:48 Ordered Troponin I Q3H Lab 04/28/21 22:00 Ordered Troponin I Q3H Lab 04/29/21 01:00 Ordered Troponin I Stat Lab 04/28/21 18:15 Received Urinalysis and Microscopic Stat Lab 04/28/21 18:48 Ordered Blood Culture Stat Micro 04/28/21 18:15 Received - Radiology Data #1 Image(s): Chest Image Reviewed: Yes I have reviewed radiologist's interpretation Preliminary Findings: Normal/NAD Medical Decision Narrative: acute delerium and infected foot - will start abx Altered Mental Status HPI - General Chief Complaint: Psychiatric Symptoms Stated Complaint: GENERAL BODY PAIN Time Seen by Provider: 04/28/21 19:00 Mode of Arrival: EMS Source of Information: Patient, EMS, Medical Record Limitations: No Limitations Description of Symptoms (Recalled from ER Triage Doc. by RN): EMS reports the police were chasing patient down the road and the police were called out for patient walking down the road in his underwear. EMS unaware of patient history. Patient stated in ED triage, I am hurting all over but I want to go to [facility]. EMS reports patient mauro
[2021-04-28 19:55] LABS: Acetaminophen < 10 ug/ml (10-30)
--- NOTE | 2021-04-28 20:04 | PC.NURSE ---
Iv has infiltrated. IV removed, site wrapped with 2x2 and coban and LUE elevated.
[2021-04-28 20:13] VITALS: BMI 26.0
[2021-04-28 20:13] LABS: Troponin I < 0.01 ng/ml (0.00-0.034)
[2021-04-28 20:22] LABS: Ethyl Alcohol < 10 mg/dl (0-10)
[2021-04-28 20:40] VITALS: BP 155/97; PULSE 85; RESP 18; TEMP 36.7; O2SAT 97
--- NOTE | 2021-04-28 20:44 | PC.NURSE ---
patient up to floor via stretcher.
[2021-04-28 22:47] LABS: Troponin I < 0.01 ng/ml (0.00-0.034)
[2021-04-29] VITALS (23 sets, daily range): BP systolic 88–140; BP diastolic 47–85; PULSE 57–88; RESP 14–18; TEMP 35.5–36.9; O2SAT 96–100; BMI 26.2; BMI 25.4
[2021-04-29 01:53] LABS: Troponin I < 0.01 ng/ml (0.00-0.034)
--- NOTE | 2021-04-29 03:34 | PC.WOUNDNOTE ---
Right foot post op 1 week no drainage or odor
--- NOTE | 2021-04-29 05:22 | PC.NURSE ---
patient admitted this shift. Return patient within last 30 days, has stitches in surgical site (right foot with swelling noted). Covered wound with non-stick dressing and wrapped with Kerlex. VS WNL, shows no s/s acute distress noted, states couple days since last BM; has been NPO since midnight. Call light within reach, bed at lowest level for safety; will continue to monitor.
--- NOTE | 2021-04-29 05:49 | CT_ITS ---
PROCEDURE INFORMATION: Exam: CT Right Lower Extremity Without Contrast, Foot Exam date and time: 04/29/2021 5:49 AM Age: 55 years old Clinical indication: Pain; Foot; Right; Additional info: Right foot osteomyelitis TECHNIQUE: Imaging protocol: CT of the Right lower extremity without contrast was performed. Exam focused on the foot. 3D rendering (Not supervised by radiologist): MIP and/or 3D reconstructed images were created by the technologist. Radiation optimization: All CT scans at this facility use at least one of these dose optimization techniques: automated exposure control; mA and/or kV adjustment per patient size (includes targeted exams where dose is matched to clinical indication); or iterative reconstruction. COMPARISON: CT FOOT RT WO CON 04/20/2021 9:40 PM FINDINGS: Bones/joints: There has been amputation of the phalanges of the 2nd digit. Soft tissues: There is diffuse soft tissue swelling around the foot. There is a foreign body within subcutaneous soft tissues overlying the great toe. This is best demonstrated on axial image 361, series 3. There appears to be some fluid around the 1st tarsal metatarsal joint. There is arthritic change with subchondral cyst formation and minor osteophyte formation mainly along the distal aspect of the 1st metatarsal. Skin surface irregularity, likely ulceration overlies the 1st metatarsophalangeal joint. IMPRESSION: 1. Diffuse soft tissue swelling with skin ulceration adjacent to the 1st metatarsophalangeal joint, and possible 1st MTP joint effusion. These findings may be seen with cellulitis. No specific findings for osteomyelitis are identified, and the bones appear unchanged since the prior CT examination. 2. There is strong clinical concern for osteomyelitis, then an MRI examination with gadolinium may be helpful for further evaluation.
[2021-04-29 06:02] LABS: Basophils # 0.1 K/mm3 (0-0.2); Basophils % 0.8 % (0.1-2.0); Eosinophils # 0.3 K/mm3 (0.0-0.4); Eosinophils % 4.2 % (0.1-12.0); Hematocrit 33.3 % (42.0-52.0); Lymphocytes # 2.2 K/mm3 (0.7-4.5); Lymphocytes % 33.5 % (10-50); Mean Corpuscular HGB Conc 33.6 g/dL (31.8-35.4); Mean Corpuscular Hemoglobin 26.9 pg (27.0-31.2); Mean Corpuscular Volume 80.2 fl (80-94); Mean Platelet Volume 7.8 fl (7.4-10.4); Monocytes # 0.3 K/mm3 (0.1-1.0); Monocytes % 4.7 % (1.7-9.3); Neutrophils # 3.7 K/mm3 (1.8-7.8); Neutrophils % 56.7 % (37.0-80.0); Platelet Count 268 K/mm3 (142-424); Red Blood Count 4.15 M/mm3 (4.60-6.20); Red Cell Distribution Width 14.6 % (11.5-17.5); White Blood Count 6.6 K/mm3 (4.8-10.8)
[2021-04-29 06:13] LABS: Hemoglobin 11.4 g/dL (14.1-18.0)
[2021-04-29 07:24] LABS: Anion Gap 8.9 mEq/L (5-15); Blood Urea Nitrogen 15 mg/dl (9-20); Calcium 8.1 mg/dl (8.4-10.2); Carbon Dioxide 29 mmol/L (22.0-30.0); Chloride 107 mmol/L (98-107); Creatinine Clearance Estimated 119 mL/min (50-200); Estimated Glomerular Filt Rate 87 ml/min (>60); GFR (African American) 105 ML/MIN (>60); Glucose 86 mg/dl (74-100); Potassium 3.9 mmoL/L (3.5-5.1); Sodium 141 mmol/L (136-145)
[2021-04-29 07:33] LABS: C-Reactive Protein 50.8 mg/L (0-4)
--- NOTE | 2021-04-29 08:10 | P.CONS_ITS ---
*Admission Date: 04/29/21 <Lyla Austin - 04/29/21 08:33> *Reason for consult:: Cellilitis Right medial hallux <TozariLyla dubois Alvaro 04/29/21 08:33> *History of present illness: Patient admitted last night for delirum and Right infected foot. Patient was just seen in the Podiatry office on Monday POV#1 S/P Right hallux I&D with delayed primary closure on 04/21/21. The site was very angry in the office, macerated and three of his sutures fell out and there was edema and refugio thema noted. The patient was advised then to stay NWB to allow the foot time to heal. Today the site has progressed with drainage that was cultured, cellulitis, painful to touch. CT was done on the foot this morning that does show cellulitis and a strong clinicial concern for osteomyelitis. The patient is NPO and has been consent and agrees for to do Incision and Drainage of nonviable soft tissue and bone, amputation of the right hallux, bone biopsies. The foot was cleaned with Betadine and dressed with Betadine soaked 4 x 4 and dry sterile dressing. The site has been marked by Dr. Yost for surgery. He may have a few ice chips but nothing else until surgery. Will find a time on the surgery schedule to take the patient for procedure sometime today. <NormanLylamadina Sanitago 04/29/21 08:37> [facility] History I have reviewed the patient's past medical history: Yes <Lyla Austin 04/29/21 08:33> Medical History: Denies:: Cancer, Coronary Artery Disease, Diabetes Mellitus Type 1, Diabetes Mellitus Type 2, Hyperlipidemia, Hypertension, Internal Pacemaker, MRSA <Lyla Austin 04/29/21 08:33> *Have you ever received a pneumonia vaccine?: No <Lyla Austin 04/29/21 08:33> *Have you received a flu vaccine this season?: No <Lyla Austin 04/29/21 08:33> Other Surgeries: No: Pacemaker <Lyla Austin 04/29/21 08:33> Amputation: Yes <Lyla Austin 07/08/21 08:33> - *Social History Last grade of school completed: 5th or 6th <Lyla Austin 04/29/21 08:33> Smoking Status: Current every day smoker <Lyla Austin 04/29/21 08:33> Tobacco Type: cigarettes <Lyla Austin 04/29/21 08:33> # Packs/Day (cigarettes): 4 <NormanLyla John 04/29/21 08:33> Alcohol Intake: current <Lyla Austin 04/29/21 08:33> Alcohol Intake Frequency:: 0-2 drinks per day <RomulosilvinoLyla John 04/29/21 08:33> Substance Use Type: denies use <NormanLyla John 04/29/21 08:33> *Occupational Status:: employed <RomulosivlinoLyla L 04/29/21 08:33> *Travel in the last 8 weeks: None <NormanLyla John 04/29/21 08:33> Family Hx:: Unable to obtain <RomulosilvinoLyla John 04/29/21 08:33> Review of Systems - Constitutional Denies fever(s) <RomulosilvinoLyla John 04/29/21 08:33> - Eyes Denies blurry vision <TobreannLyla L 04/29/21 08:33> - ENT Denies abnormal hearing <RomulosilvinoLyla John 04/29/21 08:33> - *Cardiovascular Denies chest pain, Denies shortness of breath <RomulosilvinoLyla John 04/29/21 08:33> - *Respiratory Denies cough <RomulosilvinoLyla L 04/29/21 08:33> - *Gastrointestinal Denies abdominal pain <TobreannLyla L 04/29/21 08:33> - *Genitourinary Denies difficulty urinating <TobreannLyla L 04/29/21 08:33> - *Musculoskeletal Reports muscle cramps (Reports right leg cramps, as well as neuropathy) <Lyla Austin - 04/29/21 08:33> - Integumentary/Breasts Reports redness, Reports wounds (right medial hallux wound dehiscense ) <Lyla Powell - 04/29/21 08:33> - *Neurologic Reports abnormal walking, Reports confusion (making no sense with some of conversation), Reports tingling/numbness/burning s
--- NOTE | 2021-04-29 08:10 | HMH.ORTHOCON ---
*Admission Date: 04/29/21 <Lyla Austin - 04/29/21 08:33> *Reason for consult:: Cellilitis Right medial hallux <Lyla Austin Alvaro 04/29/21 08:33> *History of present illness: Patient admitted last night for delirum and Right infected foot. Patient was just seen in the Podiatry office on Monday POV#1 S/P Right hallux I&D with delayed primary closure on 04/21/21. The site was very angry in the office, macerated and three of his sutures fell out and there was edema and erythema noted. The patient was advised then to stay NWB to allow the foot time to heal. Today the site has progressed with drainage that was cultured, cellulitis, painful to touch. CT was done on the foot this morning that does show cellulitis and a strong clinicial concern for osteomyelitis. The patient is NPO and has been consent and agrees for to do Incision and Drainage of nonviable soft tissue and bone, amputation of the right hallux, bone biopsies. The foot was cleaned with Betadine and dressed with Betadine soaked 4 x 4 and dry sterile dressing. The site has been marked by Dr. oYst for surgery. He may have a few ice chips but nothing else until surgery. Will find a time on the surgery schedule to take the patient for procedure sometime today. <TobreannLyla L 04/29/21 08:37> [facility] History I have reviewed the patient's past medical history: Yes <Lyla Austin 04/29/21 08:33> Medical History: Denies:: Cancer, Coronary Artery Disease, Diabetes Mellitus Type 1, Diabetes Mellitus Type 2, Hyperlipidemia, Hypertension, Internal Pacemaker, MRSA <NormanLyla L 04/29/21 08:33> *Have you ever received a pneumonia vaccine?: No <Lyla Austin 04/29/21 08:33> *Have you received a flu vaccine this season?: No <Lyla Austin 04/29/21 08:33> Other Surgeries: No: Pacemaker <Lyla Austin 04/29/21 08:33> Amputation: Yes <Lyla Austin 04/29/21 08:33> - *Social History Last grade of school completed: 5th or 6th <NormanLyla John 04/29/21 08:33> Smoking Status: Current every day smoker <NormanLyla John 04/29/21 08:33> Tobacco Type: cigarettes <NormanLyla John 04/29/21 08:33> # Packs/Day (cigarettes): 4 <NormanLyla John 04/29/21 08:33> Alcohol Intake: current <NormanLyla John 04/29/21 08:33> Alcohol Intake Frequency:: 0-2 drinks per day <TobreannLyla L 04/29/21 08:33> Substance Use Type: denies use <NormanLyla John 04/29/21 08:33> *Occupational Status:: employed <RomulosilvinoLyla L 04/29/21 08:33> *Travel in the last 8 weeks: None <RomulosilvinoLyla L 04/29/21 08:33> Family Hx:: Unable to obtain <RomulosilvinoLyla John 04/29/21 08:33> Review of Systems - Constitutional Denies fever(s) <TobreannLyla Alvaro 04/29/21 08:33> - Eyes Denies blurry vision <RomulosilvinoLyla Alvaro 04/29/21 08:33> - ENT Denies abnormal hearing <TobreannLyla Alvaro 04/29/21 08:33> - *Cardiovascular Denies chest pain, Denies shortness of breath <RomulosilvinoLyla Alvaro 04/29/21 08:33> - *Respiratory Denies cough <TozraiLyla dubois 04/29/21 08:33> - *Gastrointestinal Denies abdominal pain <Lyla Austin 04/29/21 08:33> - *Genitourinary Denies difficulty urinating <ToLyla crain 04/29/21 08:33> - *Musculoskeletal Reports muscle cramps (Reports right leg cramps, as well as neuropathy) <Lyla Austin 04/29/21 08:33> - Integumentary/Breasts Reports redness, Reports wounds (right medial hallux wound dehiscense ) <Lyla Austin 04/29/21 08:33> - *Neurologic Reports abnormal walking, Reports confusion (making no sense with some of conversation), Reports tingling/numbness/burning sensations, Denies abnormal speech <Lyla Austin 04/29/21 08:33> - Psychiatric Reports confusion, Denies anxiety <Lyla Austin 04/29/21 08:33> - Endocrine Denies cold intolerance <Lyla Austin 04/29/21 08:33> Meds Home Medications Medication Instructions Recorded Confirmed Type g
--- NOTE | 2021-04-29 08:12 | P.CONPHA_ITS ---
[facility] Pharmacy VTE Monitoring - Patient Demographics Admission date: 04/29/21 Report Date: 04/29/21 Time: 08:12 Allergies/Adverse Reactions: Patient Allergies acetaminophen [From Tylenol] Adverse Reaction (Verified 04/26/21 15:55) morphine Adverse Reaction (Verified 04/26/21 15:55) Height: 1.88 m Weight: 92.533 kg Patient Problems: Current Active Problems Cellulitis (Acute) - VTE Risk Labs: VTE Related Lab Results Hgb 11.4 g/dL (14.1-18.0) L D 04/29/21 05:42 Hct 33.3 % (42.0-52.0) L 04/29/21 05:42 Plt Count 268 K/mm3 (142-424) 04/29/21 05:42 BUN 15 mg/dl (9-20) 04/29/21 05:42 Creatinine 0.90 mg/dl (0.66-1.25) 04/29/21 05:42 Estimated Creat Clear 119 mL/min (50-200) 04/29/21 05:42 Was VTE Risk Assessment Performed: Yes VTE Score: 2 VTE Risk Level: Moderate Risk Clinical Trial Participant: No - Prophylaxis VTE Prophylaxis Ordered?: Yes Types of VTE Prophylaxis: TEDS Knee High, Pharmacological (eliquis)
--- NOTE | 2021-04-29 08:38 | HMH.PHACONS ---
- Pharmacy Consult Date: 04/29/21 Time: 08:38 Referring provider: DR. CROWE Reason for Consult:: VANCOMYCIN DOSING Allergies and ADEs:: Allergies Allergy/AdvReac Type Severity Reaction Status Date / Time acetaminophen [From Tylenol] AdvReac Verified 04/26/21 15:55 morphine AdvReac Verified 04/26/21 15:55 Home Medications:: Home Medications Medication Instructions Recorded Confirmed Type gabapentin 600 mg tablet 600 mg PO TID tab 06/18/20 04/28/21 History oxycodone-acetaminophen 10 mg-325 1 tab PO Q6HP PRN tab 06/18/20 04/28/21 History mg tablet Amitriptyline HCl [Elavil 50mg 50 mg PO HS 04/20/21 04/28/21 History tablet] Trazodone HCl 150 mg PO HS 04/20/21 04/28/21 History tadalafil 20 mg tablet 20 mg PO DAILY PRN #3 tab 04/26/21 04/28/21 Rx Apixaban [Eliquis] 5 mg PO BID 04/28/21 04/28/21 History Potassium Chloride [K-Tab ER 10 10 meq PO DAILY 04/28/21 04/28/21 History mEq] Tamsulosin HCl 0.4 mg PO DAILY 04/28/21 04/28/21 History doxycycline hyclate 100 mg capsule 100 mg PO BID 14 Days #28 cap 04/28/21 04/28/21 Rx levoFLOXacin [Levaquin 500mg 500 mg PO DAILY 04/29/21 04/29/21 History tab] Height: 1.88 m Weight: 92.533 kg Laboratory Results:: Laboratory Results - last 24 hr 04/28/21 18:15: WBC 7.9, RBC 4.87, Hgb 12.9 L, Hct 38.6 L, MCV 79.3 L, MCH 26.6 L, MCHC 33.5, RDW 14.7, Plt Count 313, MPV 8.0, Neut % (Auto) 74.3, Lymph % (Auto) 19.7, [place] % (Auto) 4.1, Eos % (Auto) 1.1, Baso % (Auto) 0.8, Neut # (Auto) 5.9, Lymph # (Auto) 1.6, [place] # (Auto) 0.3, Eos # (Auto) 0.1, Baso # (Auto) 0.1, ESR 53 H 04/28/21 18:15: Sodium 144, Potassium 3.7, Chloride 108 H, Carbon Dioxide 29, Anion Gap 10.7, BUN 15, Creatinine 0.80, Estimated Creat Clear 154, Estimated GFR 100, Est GFR ( Amer) 121, Glucose 113 H, Calcium 9.0, Total Bilirubin 0.7, AST 23, ALT 15 D, Alkaline Phosphatase 117, Total Protein 7.4, Albumin 4.2, Globulin 3.2, Albumin/Globulin Ratio 1.3, Procalcitonin 0.047 04/28/21 18:15: Lactate 1.0 04/28/21 18:15: Troponin I < 0.01, Acetaminophen < 10 L 04/28/21 18:15: Plasma/Serum Alcohol < 10 04/28/21 19:08: SARS-CoV-2 (PCR) Not detected, Influenza A Untype (PCR) Not detected, Influenza Type B (PCR) Not detected 04/28/21 22:00: Troponin I < 0.01 04/29/21 00:58: Troponin I < 0.01 04/29/21 05:42: WBC 6.6, RBC 4.15 L, Hgb 11.4 L D, Hct 33.3 L, MCV 80.2, MCH 26.9 L, MCHC 33.6, RDW 14.6, Plt Count 268, MPV 7.8, Neut % (Auto) 56.7, Lymph % (Auto) 33.5, [place] % (Auto) 4.7, Eos % (Auto) 4.2, Baso % (Auto) 0.8, Neut # (Auto) 3.7, Lymph # (Auto) 2.2, [place] # (Auto) 0.3, Eos # (Auto) 0.3, Baso # (Auto) 0.1 04/29/21 05:42: Sodium 141, Potassium 3.9, Chloride 107, Carbon Dioxide 29, Anion Gap 8.9, BUN 15, Creatinine 0.90, Estimated Creat Clear 119, Estimated GFR 87, Est GFR ( Amer) 105, Glucose 86 D, Calcium 8.1 L 04/29/21 06:51: C-Reactive Protein 50.8 H D Medical History: Denies:: Cancer, Coronary Artery Disease, Diabetes Mellitus Type 1, Diabetes Mellitus Type 2, Hyperlipidemia, Hypertension, Internal Pacemaker, MRSA Assessment and Plan - Assessment and plan all Dx Assessment and Plan for all problems:: Pharmacokinetic dosing service Date: Time: Objective: Patient: Floor: Age: 55 yo Serum creatinine: 0.9 mg/dL Height: 74.0 Inches Weight (kg): 92.5 Assessment: IBW (kg): 82.20 Dosing wt(kg): 92.5 Estimated Creatinine clearance (ml/min): 105.3 CRCL method: Cockcroft and Gault using ibw(default). Drug selected: Vancomycin Loading dose (mg): 0 Vd (liters): 74.0 (factor used: 0.8 L/kg) Yo (hr-1): 0.092 Half life (hrs): 7.53 Recommended dose: 1750 mg Interval: 12 hrs Infusion time (hrs): 2.0 Predicted peak (mcg/mL): 32.3 Predicted trough (mcg/mL): 12.87 Total body weight is being used for vancomycin dosing. Recommen
--- NOTE | 2021-04-29 10:35 | SW/DCPLANNER ---
Addendum entered by Miryam Nelson 04/30/21 10:09: Marcy with [email or web address] stated that patient information has been reviewed and services will begin Monday for this patient. Addendum entered by Miryam Nelson 04/30/21 09:40: Patient information/order has been faxed to [facility] for dressing changes and matt drain management. I will follow up with [email or web address] once patient information is reviewed. Patient stated that he does not need a walker at this time: already has a walker at home. Original Note: Per Dr Shea this patient currently receives services from [facility]. I will follow up with [email or web address] once patient is medically stable for discharge.
--- NOTE | 2021-04-29 12:13 | HMH.HP ---
*Admission Date: 04/29/21 [facility] History Medical History: Denies:: Cancer, Coronary Artery Disease, Diabetes Mellitus Type 1, Diabetes Mellitus Type 2, Hyperlipidemia, Hypertension, Internal Pacemaker, MRSA *Have you ever received a pneumonia vaccine?: No *Have you received a flu vaccine this season?: No Other Surgeries: No: Pacemaker Amputation: Yes - *Social History Last grade of school completed: 5th or 6th Smoking Status: Current every day smoker Tobacco Type: cigarettes # Packs/Day (cigarettes): 4 Alcohol Intake: current Alcohol Intake Frequency:: 0-2 drinks per day Substance Use Type: denies use *Occupational Status:: employed *Travel in the last 8 weeks: None Family Hx:: Unable to obtain Review of Systems - *Neurologic Reports abnormal walking, Reports confusion, Reports tingling/numbness/burning sensations, Denies abnormal hearing, Denies abnormal speech Meds Home Medications Medication Instructions Recorded Confirmed Type gabapentin 600 mg tablet 600 mg PO TID tab 06/18/20 04/28/21 History oxycodone-acetaminophen 10 mg-325 1 tab PO Q6HP PRN tab 06/18/20 04/28/21 History mg tablet Amitriptyline HCl [Elavil 50mg 50 mg PO HS 04/20/21 04/28/21 History tablet] Trazodone HCl 150 mg PO HS 04/20/21 04/28/21 History tadalafil 20 mg tablet 20 mg PO DAILY PRN #3 tab 04/26/21 04/28/21 Rx Apixaban [Eliquis] 5 mg PO BID 04/28/21 04/28/21 History Potassium Chloride [K-Tab ER 10 10 meq PO DAILY 04/28/21 04/28/21 History mEq] Tamsulosin HCl 0.4 mg PO DAILY 04/28/21 04/28/21 History doxycycline hyclate 100 mg capsule 100 mg PO BID 14 Days #28 cap 04/28/21 04/28/21 Rx levoFLOXacin [Levaquin 500mg 500 mg PO DAILY 04/29/21 04/29/21 History tab] Allergies Allergy/AdvReac Type Severity Reaction Status Date / Time acetaminophen [From Tylenol] AdvReac Verified 04/26/21 15:55 morphine AdvReac Verified 04/26/21 15:55 Exam Vital signs and Labs for Last 24 Hours: Temp Pulse Resp BP Pulse Ox 97.9 F 60 16 138/72 96 04/29/21 11:39 04/29/21 11:39 04/29/21 11:39 04/29/21 11:39 04/29/21 11:39 Laboratory Results - last 24 hr 04/28/21 18:15: WBC 7.9, RBC 4.87, Hgb 12.9 L, Hct 38.6 L, MCV 79.3 L, MCH 26.6 L, MCHC 33.5, RDW 14.7, Plt Count 313, MPV 8.0, Neut % (Auto) 74.3, Lymph % (Auto) 19.7, [place] % (Auto) 4.1, Eos % (Auto) 1.1, Baso % (Auto) 0.8, Neut # (Auto) 5.9, Lymph # (Auto) 1.6, [place] # (Auto) 0.3, Eos # (Auto) 0.1, Baso # (Auto) 0.1, ESR 53 H 04/28/21 18:15: Sodium 144, Potassium 3.7, Chloride 108 H, Carbon Dioxide 29, Anion Gap 10.7, BUN 15, Creatinine 0.80, Estimated Creat Clear 154, Estimated GFR 100, Est GFR ( Amer) 121, Glucose 113 H, Calcium 9.0, Total Bilirubin 0.7, AST 23, ALT 15 D, Alkaline Phosphatase 117, Total Protein 7.4, Albumin 4.2, Globulin 3.2, Albumin/Globulin Ratio 1.3, Procalcitonin 0.047 04/28/21 18:15: Lactate 1.0 04/28/21 18:15: Troponin I < 0.01, Acetaminophen < 10 L 04/28/21 18:15: Plasma/Serum Alcohol < 10 04/28/21 19:08: SARS-CoV-2 (PCR) Not detected, Influenza A Untype (PCR) Not detected, Influenza Type B (PCR) Not detected 04/28/21 22:00: Troponin I < 0.01 04/29/21 00:58: Troponin I < 0.01 04/29/21 05:42: WBC 6.6, RBC 4.15 L, Hgb 11.4 L D, Hct 33.3 L, MCV 80.2, MCH 26.9 L, MCHC 33.6, RDW 14.6, Plt Count 268, MPV 7.8, Neut % (Auto) 56.7, Lymph % (Auto) 33.5, [place] % (Auto) 4.7, Eos % (Auto) 4.2, Baso % (Auto) 0.8, Neut # (Auto) 3.7, Lymph # (Auto) 2.2, [place] # (Auto) 0.3, Eos # (Auto) 0.3, Baso # (Auto) 0.1 04/29/21 05:42: Sodium 141, Potassium 3.9, Chloride 107, Carbon Dioxide 29, Anion Gap 8.9, BUN 15, Creatinine 0.90, Estimated Creat Clear 119, Estimated GFR 87, Est GFR ( Amer) 105, Glucose 86 D, Calcium 8.1 L 04/29/21 06:51: C-Reactive Protein 50.8 H D I & O for Last 24 hours: Intake & Output 04/26/21 04/27/21 04/28/21 04/29/21 23:59 23:59 23:59 23:59 Intake Total 50 / 50 850 / 850 Output Total 240 / 240 Balance 50 / -190 610 / 610 We
[2021-04-29 12:15] LABS: Microscopic, Urine URINE MICROSCOPIC (MICROSCOPIC)
[2021-04-29 12:18] LABS: Appearance,Urine CLEAR (Clear); Bilirubin,Urine Negative (Negative); Blood, Urine Negative (Negative); Color,Urine YELLOW (Yellow); Glucose,Urine (UA) Negative (Negative); Ketones,Urine Negative (Negative); Leukocyte Esterase,Urine Negative (Negative); Nitrate,Urine Negative (Negative); Protein,Urine Negative (Negative); Specific Gravity, Urine <= 1.005 (1.005-1.030); Urobilinogen,Urine 0.2 EU/dl (0.2)
--- NOTE | 2021-04-29 12:25 | HMH.HP ---
*Admission Date: 04/29/21 *Chief complaint: Altered mental status *History of present illness: 55-year-old male patient presented to [facility] ED via EMS after police reports of patient walking down the road with altered mental status. Patient recently had right toes amputated and dressing was dirty and partially intact to right foot. After discharge she refused home health care, PICC line with IV antibiotics but does report taking p.o. antibiotics at home Lab work in the ED reveals no leukocytosis, H/H stable Electrolytes within normal 04/29/[address]: FINDINGS: Bones/joints: There has been amputation of the phalanges of the 2nd digit. Soft tissues: There is diffuse soft tissue swelling around the foot. There is a foreign body within subcutaneous soft tissues overlying the great toe. This is best demonstrated on axial image 361, series 3. There appears to be some fluid around the 1st tarsal metatarsal joint. There is arthritic change with subchondral cyst formation and minor osteophyte formation mainly along the distal aspect of the 1st metatarsal. Skin surface irregularity, likely ulceration overlies the 1st metatarsophalangeal joint. IMPRESSION: 1. Diffuse soft tissue swelling with skin ulceration adjacent to the 1st metatarsophalangeal joint, and possible 1st MTP joint effusion. These findings may be seen with cellulitis. No specific findings for osteomyelitis are identified, and the bones appear unchanged since the prior CT examination. 2. There is strong clinical concern for osteomyelitis, then an MRI examination with gadolinium may be helpful for further evaluation. Electronically signed by David Barth MD 04/29/21 R Foot XR: FINDINGS: Bones/joints: Status post amputation of the great toe at the midportion of the 1st metatarsal and amputation of the phalanges of the 2nd toe. Soft tissues: Skin marlin are present. Moderate soft tissue swelling. IMPRESSION: 1. Status post amputation of the great toe at the midportion of the 1st metatarsal and amputation of the phalanges of the 2nd toe. 2. Moderate soft tissue swelling. Electronically signed by Ernie Malhotra DO Podiatry has seen and recoomends: 1. NPO now 2. Plan for surgery: today for right hallux, first metatarsal head resection, wound debridement 3. IV: Vanco, ceftriaxone 4. We discussed post op and non-compliance with treatment. Patient has been FWB without shoe. 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 We discussed risks if he leaves without surgery and IV Abx 5. 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 He has wound debridement and bone biospy 04/21/21 which shows growth, ostoemyelitis. 6. High risk for poor outcome due to non-compliance 55-year-old male patient sitting up in bed podiatry is seen this morning redress wounds plans are to take him to the OR for I&D of right foot wound. Patient does report that he will accept home health care upon discharge this time states that he realizes he made a mistake going home without them last time. He does keep repeating during conversations and everyone thinks he is crazy and we will consult behavioral health. He will not elaborate as to why everyone thinks he is crazy. He does deny any thoughts of harming himself or others [facility] History I have reviewed the patient's past medical history: Yes Medical History: Denies:: Cancer, Coronary Artery Disease, Diabetes Mellitus Type 1, Diabetes Mellitus Type 2, Hyperlipidemia, Hypertension, Internal Pacemaker, MRSA *Have you ever received a pneumonia vaccine?: No *Have you received a flu vaccine this season?: No Other Surgeries: No: Pacemaker Amputation: Yes - *Social History Last grade of school completed: 5th or 6th Smoking Status: Current every day smoker Tobacco Type: cigarettes # Packs/Day (cigarettes): 4 Alcohol Intake: current Alcohol Intake Frequency:: 0-2 drinks pe
[2021-04-29 12:30] LABS: Amphetamine/Metha Screen,Urine Negative ng/ml (<1000); Squamous Epithelial Cell,Urine Occasional #/hpf (0-5)
[2021-04-29 12:31] LABS: Barbiturates Screen,Urine Negative ng/ml (<200)
[2021-04-29 12:32] LABS: Benzodiazepines Screen,Urine Negative ng/ml (<200); Cannabinoid Screen,Urine Negative ng/ml (<50)
[2021-04-29 12:33] LABS: Cocaine Screen,Urine Negative ng/ml (<300)
[2021-04-29 12:34] LABS: Methadone Screen,Urine Negative ng/ml (<300); Opiate Screen,Urine Negative ng/ml (<300)
[2021-04-29 12:35] LABS: Phencyclidine Screen,Urine Negative ng/ml (<25)
--- NOTE | 2021-04-29 14:27 | P.PN_ITS ---
[facility] Anesthesia Checklist - Patient Identification Patient Identification: Arm Band - Structural Data Admitted From: Inpatient Planned Operative Procedure/s: Toe amputation Consent for Planned Operative Procedure(s) Verified: Yes - NPO Status Verified Time NPO: 00:00 - Airway Assessment C-Spine Mobility Assessed: Yes TMJ Mobility Assessed: Yes Dentition: Edentulous - Neurological Assessment Level of Consciousness: Awake, Inappropriate Hx Seizures: No Numbness or tingling in extremities: No - Anesthesia Plan Anesthesia Risk discussed: Yes Anesthesia Plan: Verified ASA Class: III Anesthesia Type: General [facility] History I have reviewed the patient's past medical history: Yes Medical History: Reports:: Cerebrovascular Accident Denies:: Cancer, Coronary Artery Disease, Diabetes Mellitus Type 1, Diabetes Mellitus Type 2, Hyperlipidemia, Hypertension, Internal Pacemaker, MRSA *Have you ever received a pneumonia vaccine?: No *Have you received a flu vaccine this season?: No Anesthesia experience/problems:: None Other Surgeries: No: Pacemaker Amputation: Yes - *Social History Last grade of school completed: 5th or 6th Smoking Status: Current every day smoker Tobacco Type: cigarettes # Packs/Day (cigarettes): 4 Alcohol Intake: current Alcohol Intake Frequency:: 0-2 drinks per day Substance Use Type: denies use *Occupational Status:: employed *Travel in the last 8 weeks: None Family Hx:: Unable to obtain
--- NOTE | 2021-04-29 14:32 | PC.NURSE ---
Pt to surgery at 1425.
--- NOTE | 2021-04-29 16:33 | HMH.OPNOTE ---
Date of procedure: 04/29/21 Pre-op Diagnosis:: 1. Right 1st MPJ ulcer 2. Right 1st metatarsal osteomyelitis (04/21/21: bone biospy) 3. Right foot cellulitis Post-op Diagnosis:: Same Procedure performed:: 1. Right partial 1st ray amputation 2. Right ulcer excision 3. Application of MANUELITO drain Surgeon:: Maame Yost DPM [employer]:: Jax Ortiz Anesthesia: local (20cc 0.5% marcaine plain), LMA Estimated blood loss (mL): 20 Clinical Note:: Patient is a 55-year-old newly diagnosed diabetic male who was admitted 04/28/2021 for delirium. Patient had surgery to the right foot on 04/21/2021: A right first MPJ wound debridement and bone biopsy. The specimen did show positive growth from the bone. 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 Patient presented with the dressing dirty, there was blood/feces caked to the toes and he was not wearing/using the postop shoe. We discussed his non-compliance with treatment. We discussed conservative versus surgical treatment options. Conservative treatment options include local wound care, oral and IV antibiotics, change in shoe wear, taping/padding, and off-loading. We discussed surgical intervention for amputation of the hallux and partial 1st ray. Patient understands that there is a chance that the toes can migrate to fill the gap or the foot may change shape after surgery. Patient also understands that they could have wound healing complications including delayed healing and infection. We discussed that if the wound does not heal, it is possible that they may need a more proximal amputation and could result in further loss of digits, loss of partial foot or loss of leg. We discussed the risks and benefits in great detail. Other surgical risks include: prolonged pain and swelling, further infection requiring oral or IV antibiotics, delay in healing of soft tissue or bone, nerve or blood vessel damage, CRPS/RSD, DVT, anesthesia complications, and even . All questions answered. Patient verbalized understanding. Consent obtained. Operative findings:: Patient had previous b/l 2nd toe amputations. There was an ulceration noted to the medial aspect of the first metatarsophalangeal joint. The ulcer was approximately 5 x 2 x 0.3 cm. There was some serous drainage. The ulcer centrally was boggy with a sweaty malodorous smell. The wound bed had some brown, yellow and gangrenous changes noted. The wound was through skin, subcutaneous tissue extending/involving into the deep fascia. It did not probe to the level of the bone. Sutures from previous surgery or removed. The first MPJ had fluid around it. No denis purulence noted. Base the proximal phalanx had erosive changes. First metatarsal head was soft and discolored yellow. Metatarsal head had some cortical erosions noted. The bone after the metatarsal head into the first metatarsal shaft was intact, hard in texture and color. No signs of infection tracking up the tendons. Operative note:: On this date and time patient was deemed an appropriate surgical candidate. With informed consent signed, the patient was taken to the operating theater. The patient was positioned supine. LMA anesthesia was induced. Right mid calf tourniquet used at 225mHg. Pre-op right forefoot block given with 20 cc 0.5% marcaine plain. Right foot ulcer excision: A racquetball incision was mapped out surrounding the hallux and extending onto the metatarsal. Utilizing a 15 blade dissection was carried down sharply full-thickness ~1cm to the level of the bone around the ulcer and previous sutures. The 1st MPJ medial ulcer was excised in total. The ulcer was sent to path. There was no denis purulence expressed. Right 1st partial ray amputation (hallux + 1st met partial resection): The hallux was disarticulated from the metatarsal head at level of MPJ. The 1st toe tissue was gangrenous wit
--- NOTE | 2021-04-29 16:35 | XR_ITS ---
PROCEDURE INFORMATION: Exam: XR Right Foot Exam date and time: 04/29/2021 4:35 PM Age: 55 years old Clinical indication: Other: S/P RT hallux amp; Prior surgery; Surgery date: Post-operative (0-2 days); Additional info: S/P right hallux amp TECHNIQUE: Imaging protocol: XR Right foot. Views: 3 or more views. COMPARISON: CT FOOT RT WO CON 04/29/2021 6:05 AM FINDINGS: Bones/joints: Status post amputation of the great toe at the midportion of the 1st metatarsal and amputation of the phalanges of the 2nd toe. Soft tissues: Skin marlin are present. Moderate soft tissue swelling. IMPRESSION: 1. Status post amputation of the great toe at the midportion of the 1st metatarsal and amputation of the phalanges of the 2nd toe. 2. Moderate soft tissue swelling.
--- NOTE | 2021-04-29 16:35 | HMH.ANESI ---
[facility] Anesthesia Record Part I Intake, IV Amount: 700 Estimated blood loss (mL): 5 Urine output (mL): 0 Blood Pressure: 124/84 SaO2: 98 Pulse Rate: 65 Respiratory Rate: 14 Temperature: 97.4 F Patient is:: Drowsy, Oral/Nasal airway Stable to PACU at:: 16:34
--- NOTE | 2021-04-29 18:35 | CT_ITS ---
PROCEDURE INFORMATION: Exam: CT Head Without And With Contrast Exam date and time: 04/29/2021 6:35 PM Age: 55 years old Clinical indication: Altered mental status/memory loss; Confusion or disorientation; Patient HX: Very confused, angry and uncooperative. ; Additional info: Mental status changes, history of head trauma TECHNIQUE: Imaging protocol: Computed tomography of the head without and with intravenous contrast. Radiation optimization: All CT scans at this facility use at least one of these dose optimization techniques: automated exposure control; mA and/or kV adjustment per patient size (includes targeted exams where dose is matched to clinical indication); or iterative reconstruction. Contrast material: ISOVUE; Contrast volume: 100 ml; Contrast route: IV; COMPARISON: No relevant prior studies available. FINDINGS: Brain: Age-related atrophy and chronic white matter ischemic changes, with no evidence of an acute intracranial abnormality. No hemorrhage, mass effect or midline shift. Encephalomalacia changes noted within the left basal ganglia and left caudate nucleus. No enhancing masses. Cerebral ventricles: No ventriculomegaly. Paranasal sinuses: Visualized sinuses are unremarkable. No fluid levels. Mastoid air cells: Visualized mastoid air cells are well aerated. Bones/joints: Unremarkable. No acute fracture. Soft tissues: No acute changes IMPRESSION: 1. Age-related atrophy and chronic white matter ischemic changes, with no evidence of an acute intracranial abnormality. 2. No hemorrhage, mass effect or midline shift. 3. Encephalomalacia changes noted within the left basal ganglia and left caudate nucleus.
--- NOTE | 2021-04-29 18:57 | PC.NURSE ---
This RN made Dr. Shea aware that pt has been talking about bartolome and cannibal. Pt has been sniffing and stating you havent ever met anyone like me, have you? and you think im crazy dont you? Stat ct of head was ordered and Clarisse Gibbs APRN is going to see pt n the am. Temp when returning from surgery was 95.9 aux, refused rectal temp, warm blankets applied and temp now currently 97.5 orally. CB in reach. VSS. Dsg to r foot is cdi with MANUELITO in place.
--- NOTE | 2021-04-30 03:41 | PC.NURSE ---
Patient has been pleasant this shift but, remains inappropriate at times during communication. Patient is alert & oriented x4. Patient came off of post-op vitals at 2345 and remains stable at this time. Lung sounds are clear. Patients right foot dressing is clean dry and intact. MANUELITO drain has serosanguineous fluid noted. Patient had complaints at approximately 0200 that he could not sleep, was notified. Call light is within reach, VSS, IV infusing per MAR. Will continue to monitor.
[2021-04-30 04:00] VITALS: BP 105/53; PULSE 84; RESP 17; TEMP 37.5; O2SAT 96
[2021-04-30 04:49] VITALS: BMI 27.1
[2021-04-30 05:57] LABS: Basophils % 0.3 % (0.1-2.0); Eosinophils # 0.3 K/mm3 (0.0-0.4); Eosinophils % 3.3 % (0.1-12.0); Hematocrit 32.6 % (42.0-52.0); Hemoglobin 10.8 g/dL (14.1-18.0); Lymphocytes # 1.1 K/mm3 (0.7-4.5); Lymphocytes % 13.2 % (10-50); Mean Corpuscular HGB Conc 33.3 g/dL (31.8-35.4); Mean Corpuscular Volume 81.1 fl (80-94); Mean Platelet Volume 8.5 fl (7.4-10.4); Monocytes # 0.3 K/mm3 (0.1-1.0); Monocytes % 3.9 % (1.7-9.3); Neutrophils # 6.7 K/mm3 (1.8-7.8); Neutrophils % 79.2 % (37.0-80.0); Platelet Count 258 K/mm3 (142-424); Red Blood Count 4.02 M/mm3 (4.60-6.20); Red Cell Distribution Width 14.6 % (11.5-17.5); White Blood Count 8.5 K/mm3 (4.8-10.8)
[2021-04-30 06:04] LABS: Alanine Aminotransferase 10 U/L (12-78); Albumin/Globulin Ratio 1.1 (1.1-1.8); Alkaline Phosphatase 89 U/L (38-126); Anion Gap 9.1 mEq/L (5-15); Aspartate Amino Transferase 18 U/L (17-59); Bilirubin,Total 0.4 mg/dl (0.2-1.3); Blood Urea Nitrogen 12 mg/dl (9-20); Calcium 7.8 mg/dl (8.4-10.2); Carbon Dioxide 30 mmol/L (22.0-30.0); Chloride 102 mmol/L (98-107); Creatinine Clearance Estimated 138 mL/min (50-200); Estimated Glomerular Filt Rate 100 ml/min (>60); GFR (African American) 121 ML/MIN (>60); Globulin 2.7 g/dL (1.3-3.2); Glucose 101 mg/dl (74-100); Potassium 4.1 mmoL/L (3.5-5.1); Sodium 137 mmol/L (136-145); Total Protein,Serum 5.7 g/dl (6.3-8.2)
[2021-04-30 07:16] VITALS: BP 112/65; PULSE 86; RESP 19; TEMP 36.9; O2SAT 93
--- NOTE | 2021-04-30 07:33 | P.PN_ITS ---
Subjective Date: 04/30/21 Time: 06:45 Principal diagnosis: Right post amp Interval history: Patient reports less pain. Denies N/V, F/C, SOB/CP. PN: Obj Ex Vital signs: Temp Pulse Resp BP Pulse Ox 98.4 F 86 19 112/65 93 L 04/30/21 07:16 04/30/21 07:16 04/30/21 07:16 04/30/21 07:16 04/30/21 07:16 - Constitutional no acute distress - Routine HEENT Exam Head: Present: normocephalic Eye: Present: EOMI ENT: Present: mucous membranes moist - Routine Cardiovascular Exam Present: RRR - Routine Extremities Exam Present: edema (right foot improving), pulses intact - Detailed Lower Extremity Exam Foot/Toes: Bilateral amputation (b/l 2nd toe amp) Top foot image: 1 - s/p right partial 1st ray amputation. Sutures, skin marlin and MANUELITO drain clean dry and intact. No choco incision maceration. No deep openings. Pain has improved. Decreased edema and erythema. Palpable pulses. No calf or thigh pain noted b/l. Progress Note: A&P (1) Tobacco use Status: Chronic (2) Overweight (BMI 25.0-29.9) Status: Acute (3) Ulcer of right foot Status: Acute (4) History of amputation of toe Status: Acute (5) Factor 5 Leiden mutation, heterozygous Status: Chronic (6) Hallux valgus (acquired), right foot Status: Acute (7) Mood disorder Status: Acute (8) Coagulopathy Status: Acute (9) History of head injury Status: Acute (10) Foot osteomyelitis, right Status: Acute (11) Cellulitis of right foot Status: Acute Assessment and Plan for All Diagnoses:: 04/29/21, S/p right partial 1st ray amputation POD #1 Microbiology 04/29/21 08:00 Foot,Right - Drainage Gram Stain - Final 04/29/21 08:00 Foot,Right - Drainage Wound Culture - Preliminary NO GROWTH AFTER 24 HOURS Laboratory Tests 07/09/21 07/09/21 05:42 05:42 WBC 8.5 D Glucose 101 H Patient is to maintain dressing clean dry and intact. Continue PICC, IV antibiotics: Vanco, Ceftriaxone Upon d/c, discuss with PCP if patient is candidate for PICC and IV Abx. Concern over compliance. He will need oral abx x 2 weeks if no PICC recommended. Abx recommendations previously given by pharm: oral doxy 100mg and Rifampin 600mg x 2 weeks Non weight bearing to the right lower extremity with post op shoe and with DME assistance (walker). Needs new post op shoe. Upon discharge: [facility] -Dressing changes 3 times weekly -MANUELITO drain management -Cleanse right foot with saline, dry. Apply betadine soaked 4x4s, dry 4x4s, Ker lix, abd pad, Christopher bandage to right foot incision site -Follow up 05/04/21 @8083 with Podiatry
--- NOTE | 2021-04-30 08:30 | HMH.DCSUM ---
General - General Admission date:: 04/28/21 Discharge date: 04/30/21 HPI HPI: 55-year-old male patient presented to [facility] ED via EMS after police reports of patient walking down the road with altered mental status. Patient recently had right toes amputated and dressing was dirty and partially intact to right foot. After discharge she refused home health care, PICC line with IV antibiotics but does report taking p.o. antibiotics at home Lab work in the ED reveals no leukocytosis, H/H stable Electrolytes within normal 04/29/[address]: FINDINGS: Bones/joints: There has been amputation of the phalanges of the 2nd digit. Soft tissues: There is diffuse soft tissue swelling around the foot. There is a foreign body within subcutaneous soft tissues overlying the great toe. This is best demonstrated on axial image 361, series 3. There appears to be some fluid around the 1st tarsal metatarsal joint. There is arthritic change with subchondral cyst formation and minor osteophyte formation mainly along the distal aspect of the 1st metatarsal. Skin surface irregularity, likely ulceration overlies the 1st metatarsophalangeal joint. IMPRESSION: 1. Diffuse soft tissue swelling with skin ulceration adjacent to the 1st metatarsophalangeal joint, and possible 1st MTP joint effusion. These findings may be seen with cellulitis. No specific findings for osteomyelitis are identified, and the bones appear unchanged since the prior CT examination. 2. There is strong clinical concern for osteomyelitis, then an MRI examination with gadolinium may be helpful for further evaluation. Electronically signed by David Barth MD 04/29/21 R Foot XR: FINDINGS: Bones/joints: Status post amputation of the great toe at the midportion of the 1st metatarsal and amputation of the phalanges of the 2nd toe. Soft tissues: Skin marlin are present. Moderate soft tissue swelling. IMPRESSION: 1. Status post amputation of the great toe at the midportion of the 1st metatarsal and amputation of the phalanges of the 2nd toe. 2. Moderate soft tissue swelling. Electronically signed by Ernie Malhotra DO Podiatry has seen and recoomends: 1. NPO now 2. Plan for surgery: today for right hallux, first metatarsal head resection, wound debridement 3. IV: Vanco, ceftriaxone 4. We discussed post op and non-compliance with treatment. Patient has been FWB without shoe. 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 We discussed risks if he leaves without surgery and IV Abx 5. 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 He has wound debridement and bone biospy 04/21/21 which shows growth, ostoemyelitis. 6. High risk for poor outcome due to non-compliance 55-year-old male patient sitting up in bed podiatry is seen this morning redress wounds plans are to take him to the OR for I&D of right foot wound. Patient does report that he will accept home health care upon discharge this time states that he realizes he made a mistake going home without them last time. He does keep repeating during conversations and everyone thinks he is crazy and we will consult behavioral health. He will not elaborate as to why everyone thinks he is crazy. He does deny any thoughts of harming himself or others Hospital Course Hospital Course: 55-year-old male patient presented to [facility] ED via EMS after police reports of patient walking down the road with altered mental status. Patient recently had right toes amputated and dressing was dirty and partially intact to right foot. After discharge she refused home health care, PICC line with IV antibiotics but does report taking p.o. antibiotics at home 04/29/[address]: FINDINGS: Bones/joints: There has been amputation of the phalanges of the 2nd digit. Soft tissues: There is diffuse soft tissue swelling around the foot. There is a foreign body wi
--- NOTE | 2021-04-30 09:08 | PC.NURSE ---
Went over DC papers with patient. We discussed the importance of compliance with completing medications and following MD's orders. Pt verbalized understanding. Post op shoe given to patient.
--- NOTE | 2021-04-30 09:19 | PC.NURSE ---
Addendum entered by Lorri Mazariegos RN 04/30/21 09:20: Aime Stapleton RN from Dr Miek's office notified. She states she will let him know. Original Note: Notified by [facility] that they are unable to fill discharge prescriptions at this time as patient had doxycycline filled on 04/23 and rifampin filled on 04/28 and insurance won't pay.
--- NOTE | 2021-04-30 10:40 | PC.NURSE ---
Notified by Alcides Stapleton from Dr Mike's office that [facility] will be filling the rifampin. [facility] called and stated prescription is $3.70. Pt states he doesn't have the money for it but his ride should have it. [facility] notified.
--- NOTE | 2021-04-30 11:12 | PC.NURSE ---
Pharmacy delivered rifampin and pt was taken by WC to his awaiting ride outside
--- NOTE | 2021-05-03 07:45 | HMH.ANESII ---
[facility] Anesthesia Record Part II Discharge Time: 17:05 Destination: Surgical Day Care (OP Surgery) PACU nurse assessment reviewed?: Yes Patient Condition:: Good Anesthesia Complications:: None Swallowing reflex intact?: Yes Cyanosis?: No Blood Pressure: 126/80 Pulse Rate: 75 Temperature: 97.9 F Mental Status: Alert & Oriented Pain level:: 0 Nausea and/or vomitting:: None Intake, IV Amount: 700
[2021-05-03 07:46] VITALS: BP 126/80; PULSE 75; TEMP 36.6
== END 2021-04-30 11:08 | disposition home health service (06) ==
LOC: ER 18:40 → 2ND 19:59
PROVIDERS: Podiatrist; Admitting Provider Emergency Medicine; Emergency Provider Emergency Medicine; Visit Provider Family Medicine
PROC: (CPT 28039; principal; 2021-04-29 14:30)
DX: L03.115 Cellulitis of right lower limb (principal); M86.671 Other chronic osteomyelitis, right ankle and foot; L97.519 Non-pressure chronic ulcer of other part of right foot with unspecified severity; F17.210 Nicotine dependence, cigarettes, uncomplicated; Z88.5 Allergy status to narcotic agent; D68.51 Activated protein C resistance; M20.11 Hallux valgus (acquired), right foot; F39 Unspecified mood [affective] disorder; D68.9 Coagulation defect, unspecified; I96 Gangrene, not elsewhere classified
CPT/HCPCS: 28039; 28810; 36415; 70470; 71045; 73630; 73700; 80048; 80053; 80305; 80329; 81001; 83605; 84145; 84484; 85025; 85651; 86140; 87040; 87070; 87077; 87186; 87205; 88304; 88305; 88311; 93005; 96374; 99284; 99291; G0378; J3370; Q9967; U0003

== ENCOUNTER → 2021-05-11 15:11 | Outpatient (CLI) | payer MEDICARE, MEDICAID, SELFPAY ==
[2021-05-11 16:01] LABS: Basophils # 0.1 K/mm3 (0-0.2); Basophils % 0.6 % (0.1-2.0); Eosinophils # 0.3 K/mm3 (0.0-0.4); Eosinophils % 3.2 % (0.1-12.0); Hematocrit 39.9 % (42.0-52.0); Hemoglobin 13.3 g/dL (14.1-18.0); Lymphocytes # 2.8 K/mm3 (0.7-4.5); Lymphocytes % 30.4 % (10-50); Mean Corpuscular HGB Conc 33.4 g/dL (31.8-35.4); Mean Corpuscular Hemoglobin 26.8 pg (27.0-31.2); Mean Corpuscular Volume 80.4 fl (80-94); Mean Platelet Volume 8.3 fl (7.4-10.4); Monocytes # 0.4 K/mm3 (0.1-1.0); Monocytes % 4.7 % (1.7-9.3); Neutrophils # 5.7 K/mm3 (1.8-7.8); Neutrophils % 61.1 % (37.0-80.0); Platelet Count 315 K/mm3 (142-424); Red Blood Count 4.97 M/mm3 (4.60-6.20); Red Cell Distribution Width 14.8 % (11.5-17.5); White Blood Count 9.3 K/mm3 (4.8-10.8)
[2021-05-11 16:28] LABS: Erythrocyte Sedimentation Rate 25 mm/hr (0-20)
[2021-05-11 16:33] LABS: Alanine Aminotransferase 9 U/L (12-78); Albumin Level 3.6 g/dl (3.5-5.0); Albumin/Globulin Ratio 1.3 (1.1-1.8); Alkaline Phosphatase 115 U/L (38-126); Anion Gap 10.8 mEq/L (5-15); Aspartate Amino Transferase 18 U/L (17-59); Bilirubin,Total 0.5 mg/dl (0.2-1.3); Blood Urea Nitrogen 12 mg/dl (9-20); Calcium 8.7 mg/dl (8.4-10.2); Carbon Dioxide 35 mmol/L (22.0-30.0); Chloride 98 mmol/L (98-107); Estimated Glomerular Filt Rate 87 ml/min (>60); GFR (African American) 105 ML/MIN (>60); Globulin 2.7 g/dL (1.3-3.2); Glucose 90 mg/dl (74-100); Potassium 4.8 mmoL/L (3.5-5.1); Sodium 139 mmol/L (136-145); Total Protein,Serum 6.3 g/dl (6.3-8.2)
[2021-05-11 16:41] LABS: C-Reactive Protein 18.6 mg/L (0-4)
== END ==
PROVIDERS: Visit Provider Podiatrist
DX: Z98.890 Other specified postprocedural states (principal); L03.90 Cellulitis, unspecified
CPT/HCPCS: 36415; 80053; 85025; 85651; 86140

== ENCOUNTER 2021-05-16 23:09 | Observation (INO) | payer MEDICARE, MEDICAID, SELFPAY ==
[2021-05-16 23:11] VITALS: BP 146/89; PULSE 88; RESP 16; TEMP 36.8; O2SAT 97; BMI 24.3
[2021-05-16 23:40] LABS: Coronavirus 19, PCR Not Detected (NotDetected); Influenza A, PCR Not Detected (NotDetected); Influenza B, PCR Not Detected (NotDetected)
[2021-05-16 23:59] LABS: Basophils % 0.4 % (0.1-2.0); Eosinophils # 0.3 K/mm3 (0.0-0.4); Eosinophils % 3.4 % (0.1-12.0); Hematocrit 39.5 % (42.0-52.0); Hemoglobin 12.2 g/dL (14.1-18.0); Lymphocytes # 2.6 K/mm3 (0.7-4.5); Lymphocytes % 31.6 % (10-50); Mean Corpuscular Hemoglobin 25.4 pg (27.0-31.2); Mean Corpuscular Volume 81.9 fl (80-94); Mean Platelet Volume 8.2 fl (7.4-10.4); Monocytes # 0.4 K/mm3 (0.1-1.0); Monocytes % 5.2 % (1.7-9.3); Neutrophils # 4.9 K/mm3 (1.8-7.8); Neutrophils % 59.4 % (37.0-80.0); Platelet Count 242 K/mm3 (142-424); Red Blood Count 4.83 M/mm3 (4.60-6.20); Red Cell Distribution Width 13.9 % (11.5-17.5); White Blood Count 8.3 K/mm3 (4.8-10.8)
[2021-05-17] VITALS (28 sets, daily range): BP systolic 110–189; BP diastolic 45–137; PULSE 60–84; RESP 12–24; TEMP 36.2–43; O2SAT 91–99
[2021-05-17 00:02] LABS: Alanine Aminotransferase 12 U/L (12-78); Albumin Level 3.7 g/dl (3.5-5.0); Albumin/Globulin Ratio 1.2 (1.1-1.8); Alkaline Phosphatase 110 U/L (38-126); Anion Gap 8.6 mEq/L (5-15); Aspartate Amino Transferase 19 U/L (17-59); Bilirubin,Total 0.4 mg/dl (0.2-1.3); Blood Urea Nitrogen 9 mg/dl (9-20); Calcium 8.3 mg/dl (8.4-10.2); Carbon Dioxide 32 mmol/L (22.0-30.0); Chloride 105 mmol/L (98-107); Creatinine Clearance Estimated 124 mL/min (50-200); Estimated Glomerular Filt Rate 100 ml/min (>60); GFR (African American) 121 ML/MIN (>60); Globulin 3.1 g/dL (1.3-3.2); Glucose 120 mg/dl (74-100); Potassium 3.6 mmoL/L (3.5-5.1); Sodium 142 mmol/L (136-145); Total Protein,Serum 6.8 g/dl (6.3-8.2)
[2021-05-17 00:08] LABS: C-Reactive Protein 37.2 mg/L (0-4)
[2021-05-17 00:16] LABS: Lactic Acid 1.1 mmol/L (0.7-2.1)
--- NOTE | 2021-05-17 00:16 | HMH.EDGENADL ---
ED Disposition Clinical Impression: Surgical wound infection Surgical wound dehiscence Qualifiers: Encounter type: initial encounter Qualified Code(s): T81.31XA - Disruption of external operation (surgical) wound, not elsewhere classified, initial encounter Disposition: Admitted as Observation Condition on Discharge: Fair Referrals: Aron Shea MD [Primary Care Provider] - - Critical Care Critical Care Time: No Attestation: On 05/16/21, the high probability of a clinically significant, sudden or life threatening deterioration of the following system(s) required my full and direct attention, intervention and personal management. The time I documented below is in addition to time spent performing reported procedures but includes the following listed in this critical care notation. Medical Decision Making - Medical Records Medical records reviewed: Yes: I reviewed the patient's medical records. MR Comment: Reviewed records from admission with surgery on 04/29/2021, reviewed office notes from Dr. Yost 05/04/2021 and 05/11/2021. The patient has been noncompliant with postoperative care. His wound has had decreased since, with surrounding erythema and edema. He is currently on doxycycline and rifampin. Reviewed culture results. - Benja Inquiry Pt receiving controlled substance: No Vital Signs: 05/16/21 23:11 05/17/21 00:01 05/17/21 00:30 Temperature 98.3 F Temperature Source Oral Pulse Rate 78 72 Pulse Rate [Right] 88 Respiratory Rate 16 Blood Pressure 189/107 H 167/91 H Blood Pressure [Right Arm] 146/89 H Blood Pressure Mean 132 127 Blood Pressure Mean [Right Arm] 108 Blood Pressure Source [Right Arm] Automatic Cuff Blood Pressure Position 02 Sat by Pulse Oximetry 97 98 98 Oxygen Delivery Method Room Air 05/17/21 00:33 Temperature Temperature Source Pulse Rate 76 Pulse Rate [Right] Respiratory Rate Blood Pressure 167/91 H Blood Pressure [Right Arm] Blood Pressure Mean Blood Pressure Mean [Right Arm] Blood Pressure Source [Right Arm] Blood Pressure Position Supine 02 Sat by Pulse Oximetry 98 Oxygen Delivery Method Room Air - Lab Data Lab Results 05/16/21 23:20: WBC 8.3, RBC 4.83, Hgb 12.2 L, Hct 39.5 L, MCV 81.9, MCH 25.4 L, MCHC 31.0 L, RDW 13.9, Plt Count 242, MPV 8.2, Neut % (Auto) 59.4, Lymph % (Auto) 31.6, Summers % (Auto) 5.2, Eos % (Auto) 3.4, Baso % (Auto) 0.4, Neut # (Auto) 4.9, Lymph # (Auto) 2.6, Summers # (Auto) 0.4, Eos # (Auto) 0.3, Baso # (Auto) 0.0 05/16/21 23:20: Sodium 142, Potassium 3.6, Chloride 105, Carbon Dioxide 32 H, Anion Gap 8.6, BUN 9, Creatinine 0.80, Estimated Creat Clear 124, Estimated GFR 100, Est GFR ( Amer) 121, Glucose 120 H, Calcium 8.3 L, Total Bilirubin 0.4, AST 19, ALT 12, Alkaline Phosphatase 110, C-Reactive Protein 37.2 H, Total Protein 6.8, Albumin 3.7, Globulin 3.1, Albumin/Globulin Ratio 1.2 05/16/21 23:36: SARS-CoV-2 (PCR) Not detected, Influenza A Untype (PCR) Not detected, Influenza Type B (PCR) Not detected 05/16/21 23:58: Lactate 1.1 Result diagrams: 05/16/21 23:20 05/16/21 23:20 Orders (Tests/Meds): ORDERS Category Date Time Status C-Reactive Protein Stat Lab 05/16/21 23:20 Results Complete Blood Count Auto Diff Stat Lab 05/16/21 23:20 Results Comprehensive Metabolic Panel Stat Lab 05/16/21 23:20 Results Erythrocyte Sedimentation Rate Stat Lab 05/16/21 23:20 Results Procalcitonin Stat Lab 05/16/21 23:20 Results Blood Culture Stat Micro 05/16/21 23:58 Received - Physician Consults Physician Consulted: Paul Time: 00:44 Reason -: Admission Comment/Response: Agrees to admit the patient to the hospital. We discussed the patient's clinical information, including history, exam, laboratory and radiology results and ED course. Per hospital procedure, I will write temporary bridge inpatient orders on the patient. Specific orders requested by the admitting physician: Vancomycin and cefepime. Consul
--- NOTE | 2021-05-17 00:39 | PC.NURSE ---
paged dr caballero @ this time
[2021-05-17 01:01] LABS: Procalcitonin 0.041 ng/mL (0.0-2.0)
[2021-05-17 01:18] LABS: Erythrocyte Sedimentation Rate 52 mm/hr (0-20)
--- NOTE | 2021-05-17 01:27 | PC.NURSE ---
report called to kassidy LR
--- NOTE | 2021-05-17 01:34 | PC.NURSE ---
patient up to floor via wheelchair.
--- NOTE | 2021-05-17 06:06 | XR_ITS ---
PROCEDURE: XR FOOT RT MIN 3V CLINICAL INDICATION: osteomyelitis COMPARISON: CR XR FOOT WT BEARING LT 3V from 04/21/2021 CR XR FOOT WT BEARING RT 3V from 04/21/2021 CR XR FOOT WT BEARING RT 3V from 04/26/2021 CR XR FOOT RT MIN 3V from 04/29/2021 FINDINGS: Postsurgical changes status post mid shaft amputation at the 1st metatarsal and at the 2nd MTP joint. Hammertoe deformity digits 3 4 and 5. Small linear density noted at the head of the 2nd metatarsal medially consistent with a small foreign body. Skin clips are noted. No bony destructive process apparent. IMPRESSION: Postsurgical changes appear stable as described above Dictated by: Damien Ribeiro MD 05/17/2021 07:48 Damien Ribeiro MD in [facility] 05/17/2021 07:48
--- NOTE | 2021-05-17 08:10 | MR_ITS ---
PROCEDURE: MR FOOT RT WO/W CON CLINICAL INDICATION: Right foot osteomyelitis COMPARISON: CR XR FOOT RT MIN 3V from 05/17/2021 TECHNIQUE: Routine multiplanar multi echo sequences are performed without and with gadolinium enhancement. FINDINGS: Motion artifact obscures fine detail. There has been a recent amputation at the mid aspect of the 1st metatarsal and at the 2nd metatarsophalangeal junction. There is increased T2 signal involving the 1st metatarsal at the amputation site with contrast enhancement consistent with osteomyelitis. There is also suspected small abscess around the mid to distal shaft of the remaining 1st metatarsal with some decreased T2 signal adjacent to the bone and increased T2 signal along the peripheral aspect of the collection also demonstrating contrast enhancement peripherally. At the closure site of the amputation at the distal aspect of the 1st metatarsal there is an area of decreased isointense T1 signal showing increased T2 signal with some mild peripheral enhancement also suspicious for an area of abscess versus postoperative fluid collection. There is increased T2 signal involving the distal shaft in the head of the 2nd metatarsal best detected on the sagittal STIR images. A sharp area of demarcation is present at the distal 1/3 of the 2nd metatarsal. There is also increased T2 signal of the distal most shaft and head of the 3rd metatarsal. These areas also show contrast enhancement at the 2nd and 3rd metatarsal There is diffuse heterogeneous increased T2 signal within the soft tissues within the mid foot at the 1st 2nd and 3rd metatarsals. There is nonspecific increased T2 signal of the mid aspect of the calcaneus and within the talus. IMPRESSION: 1. Status post amputation at the 1st metatarsal with osteomyelitis suspected at the amputation site and with a Sarah osseous abscess at this region. Collection also noted distal to the amputation site at the 1st metatarsal suspicious for an abscess versus postoperative cavity contiguous with the Sraah osseous abscess 2. Osteomyelitis suspected at the distal shaft of head of the 2nd metatarsal and the head of the 3rd metatarsal. 3. Diffuse skin thickening and heterogeneous soft tissue changes in the midfoot medially consistent with cellulitis Dictated by: Damien Ribeiro MD 05/17/2021 11:28 Damien Ribeiro MD in [place] 05/17/2021 11:28
--- NOTE | 2021-05-17 08:14 | HMH.ORTHOCON ---
*Admission Date: 05/17/21 <Lyla Austin - 05/17/21 08:28> *Reason for consult:: Post-Surgical infection of Right foot <Lyla Austin - 05/17/21 08:28> *History of present illness: Patient resting in bed was admitted last night through the emergency room for postop infection to the right foot. Patient is status post right partial first ray amputation, right ulcer excision, application of MANUELITO drain from 04/29/2021. Patient was last seen in the office on 05/11/21 for his POV#2 and the site was dehisced and maceration was noted then. The MANUELITO drain was not intact. Today the sutures and marlin are intact there is warmth to the foot, choco incisional cellultis noted. No drainage noted when I compress the site. Some of the marlin are missing. 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 The [facility] nurse told him to come in and be seen due to the condition of his site then but he agreed to come in on Monday and he did. Patient denies any N/V/D but does report having decreased appetite. Patient will need MRI Right foot today to R/O underlying bone infection. 19 marlin was removed at the bedside so patient can have the scan this morning. <Lyla Austin - 05/17/21 10:26> [facility] History I have reviewed the patient's past medical history: Yes <Lyla Austin - 05/17/21 10:26> Medical History: Reports:: Cerebrovascular Accident Denies:: Cancer, Coronary Artery Disease, Diabetes Mellitus Type 1, Diabetes Mellitus Type 2, Hyperlipidemia, Hypertension, Internal Pacemaker, MRSA, Seizures <Maame Yost 05/17/21 08:15> *Have you ever received a pneumonia vaccine?: No <Maame Yost 05/17/21 08:15> *Have you received a flu vaccine this season?: Yes <Maame Yost 05/17/21 08:15> Other Surgeries: Yes: Other. No: Pacemaker <Maame Yost 05/17/21 08:15> Amputation: Yes (Right great toe) <Maame Yost 05/17/21 08:15> - *Social History Last grade of school completed: High school graduate <Maame Yost 05/17/21 08:15> Smoking Status: Current every day smoker <Maame Yost 05/17/21 08:15> Tobacco Type: cigarettes <RitikaMaame 05/17/21 08:15> # Packs/Day (cigarettes): 1 <Maame Yost 05/17/21 08:15> Alcohol Intake: current <Maame Yost 05/17/21 08:15> Alcohol Intake Frequency:: holidays/special occasions only <Maame Yost 05/17/21 08:15> Substance Use Type: denies use <Maame Yost 05/17/21 08:15> *Occupational Status:: employed <Maame Yost 05/17/21 08:15> *Travel in the last 8 weeks: None <Maame Yost 05/17/21 08:15> Family Hx:: Unable to obtain <Maame Yost 05/17/21 08:15> Review of Systems - Constitutional Denies fatigue, Denies fever(s) <Lyla Austin 05/17/21 10:26> - Eyes Denies change in vision <Lyla Austin 05/17/21 10:26> - ENT Denies abnormal hearing <Lyla Austin 05/17/21 10:26> - *Cardiovascular Denies chest pain, Denies shortness of breath <Lyla Austin 05/17/21 10:26> - *Respiratory Denies cough <Lyla Austin 05/17/21 10:26> - *Gastrointestinal Denies abdominal pain <Lyla Austin 05/17/21 10:26> - *Genitourinary Denies difficulty urinating <yLla Austin 05/17/21 10:26> - *Musculoskeletal Denies abnormal walking (S/P Right 1st MPJ I&D, Right Hallux Amp: 04/29/21) <Lyla Austin 05/17/21 10:26> - Integumentary/Breasts Reports wounds ( Right first ray amp site wound dehiscence ) <Lyla Austin - 05/17/21 10:26> - *Neurologic Denies confusion <Lyla Austin 05/17/21 10:26> - Psychiatric Denies anxiety, Denies irritability <Lyla Austin 05/17/21 10:26> - Endocrine Denies cold intolerance <Lyla Austin 05/17/21 10:26> Meds Home Medications Medication Instructions Recorded Confirmed Type gabapentin 600 mg tablet 600 mg PO TID tab 06/18/20 05/16/21 History oxycodone-acetaminophen 10 mg-325 1 tab PO Q6HP PRN tab 06/18/20 05/16/21 Histor
--- NOTE | 2021-05-17 08:41 | P.CONPHA_ITS ---
[facility] VTE Monitoring - Patient Demographics Admission date: 05/17/21 Report Date: 05/17/21 Time: 08:41 Allergies/Adverse Reactions: Patient Allergies acetaminophen [From Tylenol] Adverse Reaction (Verified 05/11/21 14:23) morphine Adverse Reaction (Verified 05/11/21 14:23) Height: 1.88 m Weight: 86.183 kg Patient Problems: Current Active Problems History of amputation of toe (Acute) Foot osteomyelitis, right (Acute) Cellulitis of right foot (Acute) Surgical wound infection (Acute) Surgical wound dehiscence (Acute) Diabetes mellitus (Acute) Hammer toes of both feet (Acute) Noncompliance (Acute) Postoperative wound dehiscence (Acute) Neuropathy (Acute) - VTE Risk Labs: VTE Related Lab Results Hgb 12.2 g/dL (14.1-18.0) L 05/16/21 23:20 Hct 39.5 % (42.0-52.0) L 05/16/21 23:20 Plt Count 242 K/mm3 (142-424) 05/16/21 23:20 BUN 9 mg/dl (9-20) 05/16/21 23:20 Creatinine 0.80 mg/dl (0.66-1.25) 05/16/21 23:20 Estimated Creat Clear 124 mL/min (50-200) 05/16/21 23:20 Was VTE Risk Assessment Performed: Yes VTE Risk Level: Moderate Risk Clinical Trial Participant: No - Prophylaxis VTE Prophylaxis Ordered?: Yes Types of VTE Prophylaxis: TEDS Knee High, Pharmacological Pharmacologic Type: Other (ELIQUIS)
--- NOTE | 2021-05-17 09:10 | HMH.PHACONS ---
- Pharmacy Consult Date: 05/17/21 Time: 09:10 Referring provider: FABI Reason for Consult:: vancomycin treatment Allergies and ADEs:: Allergies Allergy/AdvReac Type Severity Reaction Status Date / Time acetaminophen [From Tylenol] AdvReac Verified 05/11/21 14:23 morphine AdvReac Verified 05/11/21 14:23 Home Medications:: Home Medications Medication Instructions Recorded Confirmed Type gabapentin 600 mg tablet 600 mg PO TID tab 06/18/20 05/16/21 History oxycodone-acetaminophen 10 mg-325 1 tab PO Q6HP PRN tab 06/18/20 05/16/21 History mg tablet tadalafil 20 mg tablet 20 mg PO DAILY PRN #3 tab 04/26/21 05/16/21 Rx Apixaban [Eliquis] 5 mg PO BID 04/28/21 05/16/21 History Potassium Chloride [K-Tab ER 10 10 meq PO DAILY 04/28/21 05/16/21 History mEq] Tamsulosin HCl 0.4 mg PO DAILY 04/28/21 05/16/21 History amitriptyline 50 mg tablet 50 mg PO HS #30 tab 05/11/21 05/16/21 Rx trazodone 150 mg tablet 150 mg PO HS #30 tab 05/11/21 05/16/21 Rx Doxycycline Hyclate [Vibramycin 100 mg PO BID 05/16/21 05/16/21 History 100mg Capsule] rifAMPin [Rifampin] 600 mg PO DAILY 05/16/21 05/16/21 History Height: 1.88 m Weight: 86.183 kg Laboratory Results:: Laboratory Results - last 24 hr 05/16/21 23:20: WBC 8.3, RBC 4.83, Hgb 12.2 L, Hct 39.5 L, MCV 81.9, MCH 25.4 L, MCHC 31.0 L, RDW 13.9, Plt Count 242, MPV 8.2, Neut % (Auto) 59.4, Lymph % (Auto) 31.6, Morris % (Auto) 5.2, Eos % (Auto) 3.4, Baso % (Auto) 0.4, Neut # (Auto) 4.9, Lymph # (Auto) 2.6, Morris # (Auto) 0.4, Eos # (Auto) 0.3, Baso # (Auto) 0.0, ESR 52 H 05/16/21 23:20: Sodium 142, Potassium 3.6, Chloride 105, Carbon Dioxide 32 H, Anion Gap 8.6, BUN 9, Creatinine 0.80, Estimated Creat Clear 124, Estimated GFR 100, Est GFR ( Amer) 121, Glucose 120 H, Calcium 8.3 L, Total Bilirubin 0.4, AST 19, ALT 12, Alkaline Phosphatase 110, C-Reactive Protein 37.2 H, Total Protein 6.8, Albumin 3.7, Globulin 3.1, Albumin/Globulin Ratio 1.2, Procalcitonin 0.041 05/16/21 23:36: SARS-CoV-2 (PCR) Not detected, Influenza A Untype (PCR) Not detected, Influenza Type B (PCR) Not detected 05/16/21 23:58: Lactate 1.1 Medical History: Reports:: Cerebrovascular Accident Denies:: Cancer, Coronary Artery Disease, Diabetes Mellitus Type 1, Diabetes Mellitus Type 2, Hyperlipidemia, Hypertension, Internal Pacemaker, MRSA, Seizures Assessment and Plan (1) Surgical wound dehiscence Status: Acute Qualifiers: Encounter type: initial encounter Qualified Code(s): T81.31XA - Disruption of external operation (surgical) wound, not elsewhere classified, initial encounter Category: Medical Code(s): T81.31XA - Disruption of external operation (surgical) wound, not elsewhere classified, initial encounter (2) Surgical wound infection Status: Acute Category: Medical Code(s): T81.49XA - Infection following a procedure, other surgical site, initial encounter (3) Cellulitis of right foot Status: Acute Category: Medical Code(s): L03.115 - Cellulitis of right lower limb (4) Foot osteomyelitis, right Status: Acute Qualifiers: Category: Medical Code(s): M86.9 - Osteomyelitis, unspecified (5) Hammer toes of both feet Status: Acute Category: Medical Code(s): M20.41 - Other hammer toe(s) (acquired), right foot; M20.42 - Other hammer toe(s) (acquired), left foot (6) History of amputation of toe Status: Acute Category: Medical Code(s): Z89.429 - Acquired absence of other toe(s), unspecified side (7) Neuropathy Status: Acute Category: Medical Code(s): G62.9 - Polyneuropathy, unspecified (8) Noncompliance Status: Acute Category: Medical Code(s): Z91.19 - Patient's noncompliance with other medical treatment and regimen (9) Postoperative wound dehiscence Status: Acute Qualifiers: Category: Medical Code(s): T81.31XA - Disruption of external operation (surgical) wound, not elsewhere classified, initial encounter (10) Diabetes chen
--- NOTE | 2021-05-17 09:50 | HMH.PHAINT ---
MEDICATION RECONCILIATION COMPLETED USING LIST FROM [facility], AND EXTERNAL PHARMACY FILL HISTORY.
--- NOTE | 2021-05-17 12:18 | HMH.OPNOTE ---
Date of procedure: 05/17/21 Pre-op Diagnosis:: 1. Right foot osteomyelitis 2. Right post op partial 1st ray amp wound dehiscence 3. Right foot abscess 4. Right diabetic foot infection 5. Equinus deformity Post-op Diagnosis:: Same Procedure performed:: 1. Right foot incision and drainage 2. Right transmetatarsal amputation 3. Right tendo achilles lengthening 4. Derotational skin flap 5. Application of antibiotic beads 6. Application of MANUELITO drain Surgeon:: Maame Yost DPM Anesthesia: LMA Estimated blood loss (mL): 30 Clinical Note:: Patient is 65 male who was admitted over night for right foot pain and infection. He has been non-compliant with post op protocol. He has worsening wound dehiscence with new edema over the midfoot. We discussed conservative versus surgical treatment options. Conservative treatment options include local wound care, oral and IV antibiotics, change in shoe wear, taping/padding, and off-loading. We discussed surgical intervention for debridement of amp site. Patient understands that there is a chance that the toes can migrate to fill the gap or the foot may change shape after surgery. Patient also understands that they could have wound healing complications including delayed healing and infection. We discussed that if the wound does not heal, it is possible that they may need a more proximal amputation and could result in further loss of digits, loss of partial foot or loss of leg. We discussed the risks and benefits in great detail. Other surgical risks include: prolonged pain and swelling, further infection requiring oral or IV antibiotics, delay in healing of soft tissue or bone, nerve or blood vessel damage, CRPS/RSD, DVT, anesthesia complications, and even . All questions answered. Patient verbalized understanding. Consent obtained. Pre-op labs: ESR, CRP, Ha1c, CBC, CMP reviewed. X-ray and MRI right foot indicate abscess with new osteomyelitis. Operative findings:: Previous right partial 1st ray amputation and second toe amputation. Sutures intact to wound dehiscence. Purulence noted from 1st MPJ. Liquefactive necrosis of the soft tissue of first MPJ. Bones of the 1-4th metatarsal soft. Some drainage from plantar 3-5th metatarsals. The plantar muscles, flexors tendons were fragile, easily pulled apart and discolored. Highly suspicious for osteomyelitis of the1-3rd, as well as fourth metatarsal head. Fifth metatarsal was questionable. Bone cultures and pathology obtained. Operative note:: On this date and time patient was deemed an appropriate surgical candidate. With informed consent signed, the patient was taken to the operating theater. The patient was positioned supine. General anesthesia was induced. Right mid-calf tourniquet used at 225mmHg. 20cc 0.5% marcaine plain given. IV Vancomycin 1g and Cefepime given, scheduled. Right tendo Achilles lengthening: The extremity was prepped and draped in normal sterile fashion. Utilizing a 15 blade stab incision was made x3 in the distal posterior leg. Utilizing the three holes, percutaneous reji-section of the Achilles was performed with the foot maximally dorsiflexed. Release of Achilles contracture was noted. The incisions were flushed with sterile saline and the wound was closed with Prolene. Right foot incision and drainage: An incision was made over the dorsal first interspace. Dissection carried down full-thickness to the level of the first metatarsal head medially. Purulent drainage consistent with abscess noted. Area was drained. Right transmetatarsal amputation: Attention was directed to the 1st ray where previous amp was noted with now wound dehiscence. There was skin sloughing noted with necrotic tissue. A fish mouth incision was mapped out around the open wound extending to distal 1-5th MPJs. All non-viable soft tissue was sharply excisionally debrided. Utilizing a 15 blade and forceps dissection was carried down sharply full thickness to the level of the bones zahida
--- NOTE | 2021-05-17 14:01 | P.PN_ITS ---
[facility] Anesthesia Record Part I Intake, IV Amount: 1,200 Estimated blood loss (mL): 50 Urine output (mL): 0 Blood Pressure: 148/85 SaO2: 97 Pulse Rate: 76 Respiratory Rate: 12 Temperature: 97.8 F Patient is:: Awake, Stable Stable to PACU at:: 14:00
--- NOTE | 2021-05-17 14:13 | XR_ITS ---
PROCEDURE INFORMATION: Exam: XR Right Foot; Alignment Exam date and time: 05/17/2021 2:13 PM Age: 55 years old Clinical indication: Other: Post op pain; Prior surgery; Surgery date: Post-operative (0-2 days); Additional info: Post op amp TECHNIQUE: Imaging protocol: XR Right foot. Views: 1 or 2 views. COMPARISON: MR FOOT RT WO/W CON 05/17/2021 9:27 AM FINDINGS: Bones/joints: Postsurgical changes of transmetatarsal amputation are seen. Soft tissues: Expected postsurgical changes. Other findings: Casting material limits exam. Alignment is normal. IMPRESSION: Expected findings status post right transmetatarsal amputation
[2021-05-17 14:32] LABS: POC Glucose,Bedside 79 (70-110)
--- NOTE | 2021-05-17 14:34 | SUR.PHASEI ---
1420- blood sugar taken by lina ureña. Blood sugar was 79.
--- NOTE | 2021-05-17 14:39 | P.PN_ITS ---
[facility] Anesthesia Record Part II Discharge Time: 14:30 Destination: Medical Surgical Department PACU nurse assessment reviewed?: Yes Patient Condition:: Good Anesthesia Complications:: None Swallowing reflex intact?: Yes Cyanosis?: No Blood Pressure: 138/86 Pulse Rate: 71 Temperature: 97.6 F Mental Status: Alert & Oriented Pain level:: 0 Nausea and/or vomitting:: None Intake, IV Amount: 0
--- NOTE | 2021-05-17 14:48 | SUR.PHASEI ---
1438- detailed report called to lina Aleman charge nurse by lina ureña. 1442- pt was left in stable condition with lina aleman.
[2021-05-18] VITALS: BP 121/65; PULSE 68; RESP 16; TEMP 36.4; O2SAT 98
--- NOTE | 2021-05-18 02:15 | PC.NURSE ---
A&OX4. TOLERATING RA. R FOOT DRESSING CDI. C/O PAIN IN FOOT X1, TREATED PER MAR. RESTING WELL. VSS. REPORT GIVEN TO Meg LOZANO RN.
--- NOTE | 2021-05-18 02:16 | PC.NURSE ---
A&OX4. R FOOT DRESSED, CDI. C/O PAIN X1, TREATED PER DEC. TOLERATING RA. RESTING WELL. REPORT GIVEN TO Rosalina CHUN RN.
[2021-05-18 04:00] VITALS: BP 114/72; PULSE 70; RESP 16; TEMP 36.8; O2SAT 98
[2021-05-18 05:09] VITALS: BMI 26.6
--- NOTE | 2021-05-18 05:26 | PC.NURSE ---
Pt has slept at intervals. Requested something to eat this AM. Was given, sugar free pudding and PB and crackers. Pt has c/o discomfort to (R) foot. Medicated per dec. MANUELITO drain to (R) foot with sanguineous drainage noted. 50 ml noted. DSG to (R) foot C/DD/I. VSS. No other concerns. Will continue to monitor.
[2021-05-18 08:00] VITALS: BP 127/83; PULSE 67; RESP 20; TEMP 36.5; O2SAT 97
[2021-05-18 08:00] LABS: Basophils % 0.3 % (0.1-2.0); Eosinophils # 0.3 K/mm3 (0.0-0.4); Eosinophils % 4.3 % (0.1-12.0); Hemoglobin 11.1 g/dL (14.1-18.0); Lymphocytes # 1.6 K/mm3 (0.7-4.5); Lymphocytes % 22.4 % (10-50); Mean Corpuscular Volume 84.1 fl (80-94); Mean Platelet Volume 8.2 fl (7.4-10.4); Monocytes # 0.4 K/mm3 (0.1-1.0); Monocytes % 5.4 % (1.7-9.3); Neutrophils # 4.9 K/mm3 (1.8-7.8); Neutrophils % 67.6 % (37.0-80.0); Platelet Count 200 K/mm3 (142-424); Red Blood Count 4.28 M/mm3 (4.60-6.20); Red Cell Distribution Width 14.2 % (11.5-17.5); White Blood Count 7.3 K/mm3 (4.8-10.8)
[2021-05-18 08:03] LABS: Alanine Aminotransferase 9 U/L (12-78); Albumin/Globulin Ratio 1.1 (1.1-1.8); Alkaline Phosphatase 93 U/L (38-126); Anion Gap 6.3 mEq/L (5-15); Aspartate Amino Transferase 18 U/L (17-59); Bilirubin,Total 0.3 mg/dl (0.2-1.3); Blood Urea Nitrogen 10 mg/dl (9-20); Calcium 7.8 mg/dl (8.4-10.2); Carbon Dioxide 32 mmol/L (22.0-30.0); Chloride 102 mmol/L (98-107); Creatinine Clearance Estimated 155 mL/min (50-200); Estimated Glomerular Filt Rate 116 ml/min (>60); GFR (African American) 141 ML/MIN (>60); Globulin 2.8 g/dL (1.3-3.2); Glucose 101 mg/dl (74-100); Potassium 4.3 mmoL/L (3.5-5.1); Sodium 136 mmol/L (136-145); Total Protein,Serum 5.8 g/dl (6.3-8.2)
[2021-05-18 08:06] LABS: C-Reactive Protein 27.9 mg/L (0-4)
[2021-05-18 08:16] LABS: Erythrocyte Sedimentation Rate 45 mm/hr (0-20)
--- NOTE | 2021-05-18 08:35 | HMH.ORTHPN ---
Subjective Date: 05/18/21 <Maame Yost 05/18/21 08:36> Time: 07:45 <Maame Yost 05/18/21 08:36> Principal diagnosis: Right foot osteomyelitis <Maame Yost 05/18/21 08:36> Interval history: Patient is resting comfortably in bed. He reports some pain to the right foot. VICTORINO drain and dressing intact. Patient has agreed to rehab placement. <Maame Yost 05/18/21 08:36> PN: Obj Ex Vital signs: Temp Pulse Resp BP Pulse Ox 97.7 F 67 20 127/83 97 05/18/21 08:00 05/18/21 08:00 05/18/21 08:00 05/18/21 08:00 05/18/21 08:00 <NormanLyla L - 05/18/21 10:14> Temp Pulse Resp BP Pulse Ox 97.7 F 67 20 127/83 97 05/18/21 08:00 05/18/21 08:00 05/18/21 08:00 05/18/21 08:00 05/18/21 08:00 <Maame Yost - 05/18/21 08:36> - Constitutional no acute distress <TobreannLyla L - 05/18/21 08:54> - Routine HEENT Exam Head: Present: normocephalic <RomulosilvinoLyla L - 05/18/21 08:54> Eye: Present: EOMI <Lyla Austin - 05/18/21 08:54> ENT: Present: mucous membranes moist <TobreannLyla Alvaro - 05/18/21 08:54> - Routine Neck Exam Present: full ROM, trachea midline <RomulosilvinoLyla L - 05/18/21 08:54> - Routine Respiratory Exam Absent: respiratory distress <Lyla Austin - 05/18/21 08:54> - Routine Cardiovascular Exam Present: RRR <ToLyla crain - 05/18/21 08:54> - Routine Abdominal Exam Present: soft <Lyla Austin - 05/18/21 08:54> - Routine Extremities Exam Present: edema, pulses intact, amputation (05/18/21, s/p Right foot incision and drainage, transmetatarsal amputation, tendo achilles lengthening, derotational skin flap, application of antibiotic beads, application of VICTORINO drain). Absent: calf tenderness <Lyla Austin - 05/18/21 08:54> - Detailed Lower Extremity Exam Top foot image: 1 - 05/18/21, s/p Right foot incision and drainage, transmetatarsal amputation, tendo achilles lengthening, derotational skin flap, application of antibiotic beads, application of VICTORINO drain. A couple of the marlin was removed this morning to allow for drainage and release pressure from the amp site. Site was redressed with Betadine soaked 4x4's, dry 4x4's kerlix , abd pad, soft roll splint posteriorly for the achilles lengthening and covered with fransisco wrap. Victorino drain had bloody drainage noted approx. 15-20cc. Nursing will manage drain output while inpatient. <Lyla Austin 05/18/21 10:13> - Routine Back/Spine/Pelvis Exam Back/Spine: Present: full ROM <Lyla Austin 05/18/21 08:54> - Routine Skin Exam Present: dry, wounds (05/18/21, s/p Right foot incision and drainage, transmetatarsal amputation, tendo achilles lengthening, derotational skin flap, application of antibiotic beads, application of VICTORINO drain) <Lyla Austin 05/18/21 08:54> - Routine Neurological Exam Present: oriented X3, vision grossly intact, hearing grossly intact, normal speech <Lyla Austin 05/18/21 08:54> - Routine Psychiatric Exam Present: normal affect, cooperative <Lyla Austin 05/18/21 08:54> Progress Note: A&P (1) Surgical wound dehiscence Status: Acute (2) Surgical wound infection Status: Acute (3) Cellulitis of right foot Status: Acute (4) Foot osteomyelitis, right Status: Acute (5) Hammer toes of both feet Status: Acute (6) History of amputation of toe Status: Acute (7) Neuropathy Status: Acute (8) Noncompliance Status: Acute (9) Postoperative wound dehiscence Status: Acute (10) Diabetes mellitus Status: Acute <Lyla Austin - 05/18/21 10:14> (1) Surgical wound dehiscence Status: Acute (2) Surgical wound infection Status: Acute (3) Cellulitis of right foot Status: Acute (4) Foot osteomyelitis, right Status: Acute (5) Hammer toes of both feet Status: Acute (6) History of amputation of toe Status: A
--- NOTE | 2021-05-18 08:46 | HMH.PTEV ---
Physical Therapy Evaluation Rehab PT IP Evaluation Start: 05/17/21 13:58 Freq: ONCE Status: Active Protocol: Document 05/18/21 08:41 PWANT (Rec: 05/18/21 08:46 PWANT [id number]) Subjective/History History History This is the initial IP PT evaluation for Aurea Sierra. Pt is a 55 y/o male admitted to [facility] s/p R foot TMA. Pt had multiple conservative surgeries to maintain foot, but poor compliance and appearance of osteo necessitated surgical I&D and revision to TMA Subjective Subjective no complaints from pt Rehab PT IP Eval Objective Appearance Patient Behavior Appropriate,Cooperative Patient Orientation Name,Birthday,Year,Situation Difficulty following instructions none Speech Pattern Clear,Appropriate Ambulation Patient Able to Ambulate Yes Ambulation Observation IP General Gait Pattern Observation Decrease Weight Bear (R) Ambulation Distance (feet) 25 Ambulation Assistive Device Standard Walker Ambulation Ability Supervision/Stand by,Contact Guard/Hand Hold Balance Ability to Arise Able, uses arms to help Sitting Balance Steady, safe Standing Balance Unsteady Dynamic Sitting Balance Ability Normal Dynamic Standing Balance Ability Poor Transfers Bed Transfer Ability Independent Chair Transfer Ability Independent Sit to Stand Bed Transfer Ability Supervision/Stand by Sit to Stand Chair Transfer Ability Supervision/Stand by ROM RLE PT ROM Status ABN Abnormal ROM Comment foot splinted MMT All Extremities PT MMT WFL Rehab PT IP prob,goals,plan Problems Date of Evaluation: 05/18/21 PT IP Problems Transfers,Gait,Balance Rehab Potential Rehab Potential Good Equipment Needs Assistive Devices Rolling / Wheeled Walker Plan PT Intervention Plan Transfers,Gait,Therapeutic Exercise PT Plan Frequency BID Duration LOS Discharge Goals Bed Transfer Ability Independent Sit to Stand Chair Transfer Ability Supervision/Stand by Ambulation Assistive Device Standard Walker Ambulation Distance (feet) 25 Discharge Plan PT Discharge Plan Pt would benefit from skilled therapy and wound care at rehab facility along w/ use of
--- NOTE | 2021-05-18 08:57 | SW/DCPLANNER ---
Addendum entered by [facility] 05/19/21 10:15: I have updated Aurea with [facility] that this patient will discharge today. Aurea has stated no further COVID testing is needed. Addendum entered by [facility] 05/18/21 14:07: [facility] from [facility] has accepted this patient for tomorrow. Patient is aware and concurs with this plan. Addendum entered by [facility] 05/18/21 13:41: Patient information has also been faxed to Riana at [facility]. Addendum entered by [facility] 05/18/21 12:30: I will also fax information to Summer with [facility]. [facility] does not have any beds open at this time. Addendum entered by [facility] 05/18/21 12:29: Caroline with [facility] has called me back stated that she does not have a bed open. Patient information has been faxed to Aurea with [facility]. Original Note: I spoke with this patient regarding discharge plans. Patient is interested in placement at this time due to the need for 6 weeks of IV antibiotics. Patient expressed an interest in [facility]. I spoke with Caroline from [facility] this AM and she has stated that male beds are available. Patient information will be faxed to [facility]. Patient will have PICC line placed today and could potentially discharge later today if accepted.
--- NOTE | 2021-05-18 09:01 | HMH.HP ---
*Admission Date: 05/17/21 *Chief complaint: Right Foot Pain *History of present illness: 55-year-old male patient presented to the [facility] ED with reports of right foot pain. He did have a right great toe amputation per Dr. Yost on April 20 and was seen for follow-up appointment 04/29/[address] Pinon. 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 He unable to come to the emergency department at that time. He is still completing his antibiotics and reports increased pain/swelling/redness in right foot 05/17/21 right foot MRI: IMPRESSION: 1. Status post amputation at the 1st metatarsal with osteomyelitis suspected at the amputation site and with a Sarah osseous abscess at this region. Collection also noted distal to the amputation site at the 1st metatarsal suspicious for an abscess versus postoperative cavity contiguous with the Sarah osseous abscess 2. Osteomyelitis suspected at the distal shaft of head of the 2nd metatarsal and the head of the 3rd metatarsal. 3. Diffuse skin thickening and heterogeneous soft tissue changes in the midfoot medially consistent with cellulitis Dictated by: Damien Ribeiro MD Podiatry consulted [facility] History I have reviewed the patient's past medical history: Yes Medical History: Reports:: Cerebrovascular Accident Denies:: Cancer, Coronary Artery Disease, Diabetes Mellitus Type 1, Diabetes Mellitus Type 2, Hyperlipidemia, Hypertension, Internal Pacemaker, MRSA, Seizures *Have you ever received a pneumonia vaccine?: No *Have you received a flu vaccine this season?: Yes Other Surgeries: Yes: Other. No: Pacemaker Amputation: Yes (Right great toe) - *Social History Last grade of school completed: High school graduate Smoking Status: Current every day smoker Tobacco Type: cigarettes # Packs/Day (cigarettes): 1 Alcohol Intake: current Alcohol Intake Frequency:: holidays/special occasions only Substance Use Type: denies use *Occupational Status:: employed *Travel in the last 8 weeks: None Family Hx:: Unable to obtain Review of Systems - Review of Systems Review of systems:: pertinent systems reviewed and negative unless documented below - Constitutional Reports fatigue, Reports fever(s) - Eyes Denies blind spots, Denies double vision - ENT Denies dizziness, Denies difficulty swallowing - *Cardiovascular Denies chest pain, Denies shortness of breath - *Respiratory Denies chest congestion, Denies cough - *Gastrointestinal Denies abdominal pain, Denies change in stools - *Musculoskeletal Reports abnormal walking, Denies back pain - Integumentary/Breasts Denies hair loss, Denies change in skin color - *Neurologic Denies abnormal walking (S/P Right 1st MPJ I&D, Right Hallux Amp: 04/29/21), Denies abnormal hearing, Denies confusion - Psychiatric Denies lack of enjoyment, Denies difficulty concentrating - Endocrine Denies cold intolerance, Denies rapid, pounding, or irregular heartbeat - Hematologic/Lymphatic Denies easy bleeding, Denies easy bruising - Allergic/Immunologic Denies GI upset with certain foods, Denies wheezing Meds Home Medications Medication Instructions Recorded Confirmed Type gabapentin 600 mg tablet 600 mg PO TID tab 06/18/20 05/16/21 History oxycodone-acetaminophen 10 mg-325 1 tab PO Q6HP PRN tab 06/18/20 05/16/21 History mg tablet tadalafil 20 mg tablet 20 mg PO DAILY PRN #3 tab 04/26/21 05/16/21 Rx Apixaban [Eliquis] 5 mg PO BID 04/28/21 05/16/21 History Potassium Chloride [K-Tab ER 10 10 meq PO DAILY 04/28/21 05/16/21 History mEq] Tamsulosin HCl 0.4 mg PO DAILY 04/28/21 05/16/21 History amitriptyline 50 mg tablet 50 mg PO HS #30 tab 05/11/21 05/16/21 Rx trazodone 150 mg tablet 150 mg PO HS #30 tab 05/11/21 05/16/21 Rx Doxycycline Hyclate [Vibramycin 100 mg PO BID 05/16/21 05/16/21 History 1
[2021-05-18 09:05] LABS: Anion Gap 3.5 mEq/L (5-15); Blood Urea Nitrogen 10 mg/dl (9-20); Calcium 7.9 mg/dl (8.4-10.2); Carbon Dioxide 34 mmol/L (22.0-30.0); Chloride 101 mmol/L (98-107); Creatinine Clearance Estimated 155 mL/min (50-200); Estimated Glomerular Filt Rate 116 ml/min (>60); GFR (African American) 141 ML/MIN (>60); Glucose 104 mg/dl (74-100); Potassium 4.5 mmoL/L (3.5-5.1); Sodium 134 mmol/L (136-145)
[2021-05-18 10:05] LABS: Vancomycin,Trough 9.3 ug/mL (5.0-10.0)
[2021-05-18 11:28] VITALS: BP 113/75; PULSE 59; RESP 18; TEMP 37; O2SAT 99
--- NOTE | 2021-05-18 15:05 | XR_ITS ---
PROCEDURE: XR CHEST PORTABLE PICC PLAC CLINICAL HISTORY: Confirm PICC line placement COMPARISON: CR XR CHEST PORTABLE from 04/28/2021 FINDINGS: Left upper extremity PICC line has been placed. The tip is at the region of the confluence of the brachiocephalic veins/proximal SVC area. The lungs are clear without infiltrates, suspicious nodules, or pleural effusions. No acute bony abnormalities. IMPRESSION: PICC line tip at the region of the confluence of the brachiocephalic veins/proximal SVC Dictated by: Damien Ribeiro MD 05/18/2021 16:53 Damien Ribeiro MD in OV 05/18/2021 16:53
--- NOTE | 2021-05-18 15:57 | PC.NURSE ---
patient has done well this shift. some complaints of pain. matt drain still in place. dressing has not needed to be reenforced. rings out as needed. independent with turns. has been up to chair and worked with pt. vitals stable.
[2021-05-18 16:00] VITALS: BP 122/69; PULSE 72; RESP 18; TEMP 36.8; O2SAT 98
[2021-05-18 17:00] LABS: Vancomycin,Peak 19.5 ug/ml (11-39)
--- NOTE | 2021-05-18 19:48 | PC.NURSE ---
No acute changes on pt this evening, since taking over care at approx 1630. Prn pain med given per dec and matt drain emptied. Pt resting at this time in bed. Dsg to RLE cdi. CB in reach.
[2021-05-18 20:00] VITALS: BP 156/75; PULSE 76; RESP 16; TEMP 37.3; O2SAT 94
--- NOTE | 2021-05-19 03:46 | PC.NURSE ---
Patient is alert and oriented x4. He has been pleasant this shift. Patient's right foot dressing remains clean, dry and intact. He had complaints of pain this shift around midnight. He was medicated per DEC. He has rested comfortably through the night. Patient's vital signs are stable, call light within reach, will continue to monitor.
[2021-05-19 04:00] VITALS: BP 119/59; PULSE 68; RESP 16; TEMP 37; O2SAT 95
[2021-05-19 05:00] VITALS: BMI 26.9
[2021-05-19 06:35] LABS: Basophils % 0.3 % (0.1-2.0); Eosinophils # 0.4 K/mm3 (0.0-0.4); Hematocrit 32.2 % (42.0-52.0); Hemoglobin 10.7 g/dL (14.1-18.0); Lymphocytes # 1.8 K/mm3 (0.7-4.5); Lymphocytes % 26.2 % (10-50); Mean Corpuscular HGB Conc 33.1 g/dL (31.8-35.4); Mean Corpuscular Hemoglobin 26.6 pg (27.0-31.2); Mean Corpuscular Volume 80.4 fl (80-94); Mean Platelet Volume 8.8 fl (7.4-10.4); Monocytes # 0.4 K/mm3 (0.1-1.0); Neutrophils # 4.4 K/mm3 (1.8-7.8); Neutrophils % 62.5 % (37.0-80.0); Platelet Count 203 K/mm3 (142-424); Red Cell Distribution Width 14.6 % (11.5-17.5)
[2021-05-19 06:40] LABS: Anion Gap 5.2 mEq/L (5-15); Blood Urea Nitrogen 11 mg/dl (9-20); Calcium 7.7 mg/dl (8.4-10.2); Carbon Dioxide 30 mmol/L (22.0-30.0); Chloride 104 mmol/L (98-107); Creatinine Clearance Estimated 156 mL/min (50-200); Estimated Glomerular Filt Rate 116 ml/min (>60); GFR (African American) 141 ML/MIN (>60); Glucose 93 mg/dl (74-100); Potassium 4.2 mmoL/L (3.5-5.1); Sodium 135 mmol/L (136-145)
[2021-05-19 08:00] VITALS: BP 151/83; PULSE 72; RESP 18; TEMP 36.8; O2SAT 98
--- NOTE | 2021-05-19 09:00 | HMH.ORTHPN ---
Subjective Date: 05/19/21 Time: 07:50 Principal diagnosis: Right foot osteomyelitis Interval history: Patient is resting comfortably in the bed this morning stated pain done little better through the night. MANUELITO drain remains intact and appears to be drained as of this morning. Patient was asking this morning will he get transferred he is anxious about getting placed and getting moved today. PN: Obj Ex Vital signs: Temp Pulse Resp BP Pulse Ox 98.2 F 72 18 151/83 H 98 05/19/21 08:00 05/19/21 08:00 05/19/21 08:00 05/19/21 08:00 05/19/21 08:00 - Constitutional no acute distress - Routine HEENT Exam Head: Present: normocephalic Eye: Present: EOMI ENT: Present: mucous membranes moist - Routine Neck Exam Present: supple, trachea midline - Routine Respiratory Exam Absent: accessory muscle use, respiratory distress - Routine Cardiovascular Exam Present: RRR - Routine Abdominal Exam Present: soft - Routine Extremities Exam Present: pulses intact, amputation (05/18/21, s/p Right foot incision and drainage, transmetatarsal amputation, tendo achilles lengthening, derotational skin flap, application of antibiotic beads, application of MANUELITO drain). Absent: calf tenderness - Routine Back/Spine/Pelvis Exam Back/Spine: Present: full ROM - Routine Skin Exam Present: intact, erythema (erythema noted to the R amp site dorsal foot. ), dry, wounds ( Right foot TMA) - Routine Neurological Exam Present: alert, oriented X3, vision grossly intact, hearing grossly intact, normal speech - Routine Psychiatric Exam Present: normal affect Progress Note: A&P (1) Surgical wound dehiscence Status: Acute (2) Surgical wound infection Status: Acute (3) Cellulitis of right foot Status: Acute (4) Foot osteomyelitis, right Status: Acute (5) Hammer toes of both feet Status: Acute (6) History of amputation of toe Status: Acute (7) Neuropathy Status: Acute (8) Noncompliance Status: Acute (9) Postoperative wound dehiscence Status: Acute (10) Diabetes mellitus Status: Acute (11) Foot abscess, right Status: Acute Assessment and Plan for All Diagnoses:: Dressing and splint changed this am 05/19/21. MANUELITO drain intact with no no drainage in the bulb, it was drained this am. Patient states the foot is feeling much better this morning had mild pain throughout the night but was controlled with pain medication. Skin cleansed with betadine. There remains some erythema and mild edema to the dorsal part of the foot this morning. Sutures and marlin remain intact. There was no drainage coming from the suture line when the foot was squeezed this morning. Along the suture line the color appears to be a little duskier than yesterday morning, we will continue to monitor No purulence or malodor noted. Plan: Patient is to maintain dressing clean dry and intact. Drain management. Discuss with PCP. Recommend PICC line with IV Abx. Indications: third surgery, hx of non compliance, osteomyelitis. [place], [place]. No social support. Continues to FWB without DME. For the best chance of limb salvage, it is medically necessary the patient have SNF rehab evaluation and placement. If patient agrees to rehab, PICC with 6 weeks IV Abx and daily dressing changes. Needs a short fracture boot (s/p achilles lengthening). Podiatry changed the dressing this morning. SNF ORDERS: -Maintain dressing clean dry and intact to right foot. -PICC, IV Vancomycin 1g, Cefepime 2g x 6 weeks (05/17-06/28/21). -Non weight bearing to the right lower extremity with DME assistance (wheelchair or walker). -Daily dressing changes to right foot, SNF orders: -cleanse skin with saline, dry thoroughly. -apply Betadine soaked gauze to incisions followed by dry gauze, Kerlix, secure with Christopher. -continue daily drain management. -Plan for post op visit with Podiatry Monday05/25/21 @0858
--- NOTE | 2021-05-19 10:00 | HMH.PHACONS ---
- Pharmacy Consult Date: 05/19/21 Time: 10:00 Referring provider: DR. RAM Reason for Consult:: VANCOMYCIN LEVELS AND DOSE CHANGE Allergies and ADEs:: Allergies Allergy/AdvReac Type Severity Reaction Status Date / Time acetaminophen [From Tylenol] AdvReac Verified 05/11/21 14:23 morphine AdvReac Verified 05/11/21 14:23 Home Medications:: Home Medications Medication Instructions Recorded Confirmed Type gabapentin 600 mg tablet 600 mg PO TID tab 06/18/20 05/16/21 History oxycodone-acetaminophen 10 mg-325 1 tab PO Q6HP PRN tab 06/18/20 05/16/21 History mg tablet tadalafil 20 mg tablet 20 mg PO DAILY PRN #3 tab 04/26/21 05/16/21 Rx Apixaban [Eliquis] 5 mg PO BID 04/28/21 05/16/21 History Potassium Chloride [K-Tab ER 10 10 meq PO DAILY 04/28/21 05/16/21 History mEq] Tamsulosin HCl 0.4 mg PO DAILY 04/28/21 05/16/21 History amitriptyline 50 mg tablet 50 mg PO HS #30 tab 05/11/21 05/16/21 Rx trazodone 150 mg tablet 150 mg PO HS #30 tab 05/11/21 05/16/21 Rx Doxycycline Hyclate [Vibramycin 100 mg PO BID 05/16/21 05/16/21 History 100mg Capsule] rifAMPin [Rifampin] 600 mg PO DAILY 05/16/21 05/16/21 History Height: 1.88 m Weight: 94.999 kg Laboratory Results:: Laboratory Results - last 24 hr 05/18/21 08:38: Vancomycin Trough 9.3 05/18/21 16:00: Vancomycin Peak 19.5 05/19/21 06:15: WBC 7.0, RBC 4.00 L, Hgb 10.7 L, Hct 32.2 L, MCV 80.4, MCH 26.6 L, MCHC 33.1, RDW 14.6, Plt Count 203, MPV 8.8, Neut % (Auto) 62.5, Lymph % (Auto) 26.2, Dodge % (Auto) 5.0, Eos % (Auto) 6.0, Baso % (Auto) 0.3, Neut # (Auto) 4.4, Lymph # (Auto) 1.8, Dodge # (Auto) 0.4, Eos # (Auto) 0.4, Baso # (Auto) 0.0 05/19/21 06:15: Sodium 135 L, Potassium 4.2, Chloride 104, Carbon Dioxide 30, Anion Gap 5.2, BUN 11, Creatinine 0.70, Estimated Creat Clear 156, Estimated GFR 116, Est GFR ( Amer) 141, Glucose 93, Calcium 7.7 L Medical History: Reports:: Cerebrovascular Accident Denies:: Cancer, Coronary Artery Disease, Diabetes Mellitus Type 1, Diabetes Mellitus Type 2, Hyperlipidemia, Hypertension, Internal Pacemaker, MRSA, Seizures Assessment and Plan (1) Surgical wound dehiscence Status: Acute Qualifiers: Encounter type: initial encounter Qualified Code(s): T81.31XA - Disruption of external operation (surgical) wound, not elsewhere classified, initial encounter Category: Medical Code(s): T81.31XA - Disruption of external operation (surgical) wound, not elsewhere classified, initial encounter (2) Surgical wound infection Status: Acute Category: Medical Code(s): T81.49XA - Infection following a procedure, other surgical site, initial encounter (3) Cellulitis of right foot Status: Acute Category: Medical Code(s): L03.115 - Cellulitis of right lower limb (4) Foot osteomyelitis, right Status: Acute Qualifiers: Category: Medical Code(s): M86.9 - Osteomyelitis, unspecified (5) Hammer toes of both feet Status: Acute Category: Medical Code(s): M20.41 - Other hammer toe(s) (acquired), right foot; M20.42 - Other hammer toe(s) (acquired), left foot (6) History of amputation of toe Status: Acute Category: Medical Code(s): Z89.429 - Acquired absence of other toe(s), unspecified side (7) Neuropathy Status: Acute Category: Medical Code(s): G62.9 - Polyneuropathy, unspecified (8) Noncompliance Status: Acute Category: Medical Code(s): Z91.19 - Patient's noncompliance with other medical treatment and regimen (9) Postoperative wound dehiscence Status: Acute Qualifiers: Category: Medical Code(s): T81.31XA - Disruption of external operation (surgical) wound, not elsewhere classified, initial encounter (10) Diabetes mellitus Status: Acute Category: Medical Code(s): E11.9 - Type 2 diabetes mellitus without complications (11) Foot abscess, right Status: Acute Category: Medical Code(s): L02.611 - Cutaneous abscess of right foot - Assessment and plan all D
--- NOTE | 2021-05-19 10:22 | HMH.DCSUM ---
General - General Admission date:: 05/17/21 Discharge date: 05/19/21 HPI HPI: 55-year-old male patient presented to the [facility] ED with reports of right foot pain. He did have a right great toe amputation per Dr. Yost on April 20 and was seen for follow-up appointment 04/29/[address] Pinon. 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 He unable to come to the emergency department at that time. He is still completing his antibiotics and reports increased pain/swelling/redness in right foot 05/17/21 right foot MRI: IMPRESSION: 1. Status post amputation at the 1st metatarsal with osteomyelitis suspected at the amputation site and with a Sarah osseous abscess at this region. Collection also noted distal to the amputation site at the 1st metatarsal suspicious for an abscess versus postoperative cavity contiguous with the Sarah osseous abscess 2. Osteomyelitis suspected at the distal shaft of head of the 2nd metatarsal and the head of the 3rd metatarsal. 3. Diffuse skin thickening and heterogeneous soft tissue changes in the midfoot medially consistent with cellulitis Dictated by: Damien Ribeiro MD Podiatry consulted Hospital Course Hospital Course: 55-year-old male patient presented to the [facility] ED with reports of right foot pain. He did have a right great toe amputation per Dr. Yost on April 20 and was seen for follow-up appointment 04/29/[address] Pinon. 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 He unable to come to the emergency department at that time. He is still completing his antibiotics and reports increased pain/swelling/redness in right foot 05/17/21 right foot MRI: IMPRESSION: 1. Status post amputation at the 1st metatarsal with osteomyelitis suspected at the amputation site and with a Sarah osseous abscess at this region. Collection also noted distal to the amputation site at the 1st metatarsal suspicious for an abscess versus postoperative cavity contiguous with the Sarah osseous abscess 2. Osteomyelitis suspected at the distal shaft of head of the 2nd metatarsal and the head of the 3rd metatarsal. 3. Diffuse skin thickening and heterogeneous soft tissue changes in the midfoot medially consistent with cellulitis Dictated by: Damien Ribeiro MD 05/17/21 Podiatry performed: 1. Right foot incision and drainage 2. Right transmetatarsal amputation 3. Right tendo achilles lengthening 4. Derotational skin flap 5. Application of antibiotic beads 6. Application of MANUELITO drain Podiatry has seen and recommends: Plan: Patient is to maintain dressing clean dry and intact. Drain management. Discuss with PCP. Recommend PICC line with IV Abx. Indications: third surgery, hx of non compliance, osteomyelitis. [place], [place]. No social support. Continues to FWB without DME. For the best chance of limb salvage, it is medically necessary the patient have SNF rehab evaluation and placement. If patient agrees to rehab, PICC with 6 weeks IV Abx and daily dressing changes. Needs a short fracture boot (s/p achilles lengthening). Podiatry changed the dressing this morning. SNF ORDERS: -Maintain dressing clean dry and intact to right foot. -PICC, IV Vancomycin 1g, Cefepime 2g x 6 weeks (05/17-06/28/21). -Non weight bearing to the right lower extremity with DME assistance (wheelchair or walker). -Daily dressing changes to right foot, SNF orders: -cleanse skin with saline, dry thoroughly. -apply Betadine soaked gauze to incisions followed by dry gauze, Kerlix, secure with Christopher. -continue daily drain management. -Plan for post op visit with Podiatry Monday05/25/21 @4607 55-year-old male patient sit
[2021-05-19 11:15] VITALS: RESP 18
--- NOTE | 2021-05-19 13:09 | PC.NURSE ---
picc line dressing changed with no difficulty noted
== END 2021-05-19 14:10 ==
LOC: ER 05-17 00:46 → 2ND 05-17 00:48
PROVIDERS: Nurse Practitioner Family; Podiatrist; Admitting Provider Internal Medicine Adolescent Medicine; Emergency Provider Emergency Medicine; PCP Family Medicine; Visit Provider Family Medicine
DX: T87.81 Dehiscence of amputation stump (principal); Y83.5 Amputation of limb(s) as the cause of abnormal reaction of the patient, or of later complication, without mention of misadventure at the time of the procedure; Z86.73 Personal history of transient ischemic attack (TIA), and cerebral infarction without residual deficits; F17.210 Nicotine dependence, cigarettes, uncomplicated; L02.611 Cutaneous abscess of right foot; E11.69 Type 2 diabetes mellitus with other specified complication; M86.171 Other acute osteomyelitis, right ankle and foot; Z20.822 Contact with and (suspected) exposure to COVID-19; Z79.01 Long term (current) use of anticoagulants; Z91.19 Patient's noncompliance with other medical treatment and regimen; Z74.2 Need for assistance at home and no other household member able to render care; M67.01 Short Achilles tendon (acquired), right ankle
CPT/HCPCS: 10061; 14040; 27606; 28810 ×5; 36415; 36569; 71045; 73620; 73630; 73720; 80048; 80053; 80202; 82962; 83605; 84145; 85025; 85651; 86140; 87040; 87070; 87075; 87077; 87186; 87205; 88304; 88305; 88307; 88311; 96365; 97110; 97162; 97530; 99283; A9576; C1751; G0378; J2405; J3370; U0003

== ENCOUNTER → 2021-05-20 23:54 | Outpatient (REF) | payer MEDICARE, MEDICAID, SELFPAY ==
[2021-05-21 00:32] LABS: Chloride 102 mmol/L (98-107); Sodium 137 mmol/L (136-145)
[2021-05-21 00:33] LABS: Potassium 4.2 mmoL/L (3.5-5.1)
[2021-05-21 00:35] LABS: Blood Urea Nitrogen 12 mg/dl (9-20); Estimated Glomerular Filt Rate 116 ml/min (>60); GFR (African American) 141 ML/MIN (>60)
[2021-05-21 00:36] LABS: Anion Gap 7.2 mEq/L (5-15); Calcium 7.9 mg/dl (8.4-10.2); Carbon Dioxide 32 mmol/L (22.0-30.0); Glucose 93 mg/dl (74-100)
[2021-05-21 00:52] LABS: Vancomycin,Trough 11.4 ug/mL (5.0-10.0)
== END ==
LOC: LAB.DROPOF 23:54
PROVIDERS: Visit Provider Emergency Medicine
DX: L97.519 Non-pressure chronic ulcer of other part of right foot with unspecified severity (principal); L03.90 Cellulitis, unspecified; Z51.81 Encounter for therapeutic drug level monitoring
CPT/HCPCS: 80048; 80202

== ENCOUNTER → 2021-05-23 23:36 | Outpatient (CLI) | payer MEDICARE, MEDICAID, SELFPAY ==
[2021-05-24 00:02] LABS: Blood Urea Nitrogen 9 mg/dl (9-20); Calcium 8.2 mg/dl (8.4-10.2); Carbon Dioxide 33 mmol/L (22.0-30.0); Chloride 101 mmol/L (98-107); Estimated Glomerular Filt Rate 116 ml/min (>60); GFR (African American) 141 ML/MIN (>60); Glucose 117 mg/dl (74-100); Sodium 138 mmol/L (136-145)
[2021-05-24 00:10] LABS: Vancomycin,Trough 11.5 ug/mL (5.0-10.0)
== END ==
PROVIDERS: Visit Provider Emergency Medicine
DX: L03.115 Cellulitis of right lower limb (principal); Z51.81 Encounter for therapeutic drug level monitoring
CPT/HCPCS: 80048; 80202

== ENCOUNTER → 2021-05-26 23:30 | Outpatient (CLI) | payer MEDICARE, MEDICAID, SELFPAY ==
[2021-05-27 00:17] LABS: Anion Gap 9.1 mEq/L (5-15); Blood Urea Nitrogen 12 mg/dl (9-20); Calcium 8.3 mg/dl (8.4-10.2); Carbon Dioxide 32 mmol/L (22.0-30.0); Chloride 101 mmol/L (98-107); Estimated Glomerular Filt Rate 139 ml/min (>60); GFR (African American) 168 ML/MIN (>60); Glucose 102 mg/dl (74-100); Potassium 4.1 mmoL/L (3.5-5.1); Sodium 138 mmol/L (136-145)
[2021-05-27 00:22] LABS: Vancomycin,Trough 13.1 ug/mL (5.0-10.0)
== END ==
PROVIDERS: Visit Provider Emergency Medicine
DX: L03.90 Cellulitis, unspecified (principal); Z51.81 Encounter for therapeutic drug level monitoring
CPT/HCPCS: 80048; 80202

== ENCOUNTER → 2021-05-27 23:30 | Outpatient (CLI) | payer MEDICARE, MEDICAID, SELFPAY ==
[2021-05-28 01:10] LABS: Anion Gap 7.1 mEq/L (5-15); Blood Urea Nitrogen 10 mg/dl (9-20); Calcium 8.3 mg/dl (8.4-10.2); Carbon Dioxide 33 mmol/L (22.0-30.0); Chloride 101 mmol/L (98-107); Estimated Glomerular Filt Rate 116 ml/min (>60); GFR (African American) 141 ML/MIN (>60); Glucose 92 mg/dl (74-100); Potassium 4.1 mmoL/L (3.5-5.1); Sodium 137 mmol/L (136-145)
[2021-05-28 01:15] LABS: Vancomycin,Trough 13.9 ug/mL (5.0-10.0)
== END ==
PROVIDERS: Visit Provider Emergency Medicine
DX: Z51.81 Encounter for therapeutic drug level monitoring (principal)
CPT/HCPCS: 80048; 80202

== ENCOUNTER → 2021-05-30 23:44 | Outpatient (CLI) | payer MEDICARE, MEDICAID, SELFPAY ==
[2021-05-31 00:38] LABS: Anion Gap 8.9 mEq/L (5-15); Blood Urea Nitrogen 9 mg/dl (9-20); Calcium 8.4 mg/dl (8.4-10.2); Carbon Dioxide 32 mmol/L (22.0-30.0); Chloride 101 mmol/L (98-107); Estimated Glomerular Filt Rate 139 ml/min (>60); GFR (African American) 168 ML/MIN (>60); Glucose 117 mg/dl (74-100); Potassium 3.9 mmoL/L (3.5-5.1); Sodium 138 mmol/L (136-145)
[2021-05-31 00:43] LABS: Vancomycin,Trough 15.7 ug/mL (5.0-10.0)
== END ==
PROVIDERS: Visit Provider Emergency Medicine
DX: Z51.81 Encounter for therapeutic drug level monitoring (principal)
CPT/HCPCS: 80048; 80202

== ENCOUNTER → 2021-06-03 23:37 | Outpatient (CLI) | payer MEDICARE, MEDICAID, SELFPAY ==
[2021-06-04 00:03] LABS: Anion Gap 10.1 mEq/L (5-15); Blood Urea Nitrogen 12 mg/dl (9-20); Calcium 8.5 mg/dl (8.4-10.2); Carbon Dioxide 33 mmol/L (22.0-30.0); Chloride 101 mmol/L (98-107); Estimated Glomerular Filt Rate 116 ml/min (>60); GFR (African American) 141 ML/MIN (>60); Glucose 98 mg/dl (74-100); Potassium 4.1 mmoL/L (3.5-5.1); Sodium 140 mmol/L (136-145)
[2021-06-04 00:09] LABS: Vancomycin,Trough 14.6 ug/mL (5.0-10.0)
== END ==
PROVIDERS: Visit Provider Emergency Medicine
DX: Z51.81 Encounter for therapeutic drug level monitoring (principal)
CPT/HCPCS: 80048; 80202

== ENCOUNTER → 2021-06-07 23:45 | Outpatient (CLI) | payer MEDICARE, MEDICAID, SELFPAY ==
[2021-06-08 00:24] LABS: Anion Gap 9.1 mEq/L (5-15); Blood Urea Nitrogen 11 mg/dl (9-20); Calcium 8.6 mg/dl (8.4-10.2); Carbon Dioxide 33 mmol/L (22.0-30.0); Chloride 100 mmol/L (98-107); Estimated Glomerular Filt Rate 138 ml/min (>60); GFR (African American) 167 ML/MIN (>60); Glucose 102 mg/dl (74-100); Potassium 4.1 mmoL/L (3.5-5.1); Sodium 138 mmol/L (136-145)
[2021-06-08 00:29] LABS: Vancomycin,Trough 13.9 ug/mL (5.0-10.0)
== END ==
PROVIDERS: Visit Provider Emergency Medicine
DX: Z51.81 Encounter for therapeutic drug level monitoring (principal)
CPT/HCPCS: 80048; 80202

== ENCOUNTER → 2021-06-10 11:33 | Outpatient (CLI) | payer MEDICARE, MEDICAID, SELFPAY ==
[2021-06-10 13:20] LABS: Vancomycin,Trough 15.7 ug/mL (5.0-10.0)
[2021-06-10 16:27] LABS: Chloride 101 mmol/L (98-107)
[2021-06-10 16:28] LABS: Potassium 4.5 mmoL/L (3.5-5.1); Sodium 139 mmol/L (136-145)
[2021-06-10 16:30] LABS: Blood Urea Nitrogen 12 mg/dl (9-20); Estimated Glomerular Filt Rate 116 ml/min (>60); GFR (African American) 140 ML/MIN (>60)
[2021-06-10 16:31] LABS: Anion Gap 11.5 mEq/L (5-15); Calcium 8.6 mg/dl (8.4-10.2); Carbon Dioxide 31 mmol/L (22.0-30.0); Glucose 119 mg/dl (74-100)
== END ==
PROVIDERS: Visit Provider Emergency Medicine
DX: Z89.431 Acquired absence of right foot (principal); Z51.81 Encounter for therapeutic drug level monitoring
CPT/HCPCS: 80048; 80202

== ENCOUNTER → 2021-06-12 11:53 | Outpatient (CLI) | payer MEDICARE, MEDICAID, SELFPAY ==
[2021-06-12 12:39] LABS: Anion Gap 11.3 mEq/L (5-15); Blood Urea Nitrogen 10 mg/dl (9-20); Calcium 8.8 mg/dl (8.4-10.2); Carbon Dioxide 33 mmol/L (22.0-30.0); Chloride 100 mmol/L (98-107); Estimated Glomerular Filt Rate 116 ml/min (>60); GFR (African American) 140 ML/MIN (>60); Glucose 101 mg/dl (74-100); Potassium 4.3 mmoL/L (3.5-5.1); Sodium 140 mmol/L (136-145)
[2021-06-12 12:53] LABS: Vancomycin,Trough 16.8 ug/mL (5.0-10.0)
== END ==
PROVIDERS: PCP Emergency Medicine; Visit Provider Emergency Medicine
DX: Z51.81 Encounter for therapeutic drug level monitoring (principal)
CPT/HCPCS: 80048; 80202

== ENCOUNTER → 2021-06-15 23:40 | Outpatient (CLI) | payer MEDICARE, MEDICAID, SELFPAY ==
[2021-06-16 01:42] LABS: Vancomycin,Trough 14.9 ug/mL (5.0-10.0)
[2021-06-16 01:43] LABS: Anion Gap 8.9 mEq/L (5-15); Blood Urea Nitrogen 15 mg/dl (9-20); Calcium 8.6 mg/dl (8.4-10.2); Carbon Dioxide 33 mmol/L (22.0-30.0); Chloride 100 mmol/L (98-107); Estimated Glomerular Filt Rate 116 ml/min (>60); GFR (African American) 140 ML/MIN (>60); Glucose 116 mg/dl (74-100); Potassium 3.9 mmoL/L (3.5-5.1); Sodium 138 mmol/L (136-145)
== END ==
PROVIDERS: Visit Provider Emergency Medicine
DX: Z51.81 Encounter for therapeutic drug level monitoring (principal)
CPT/HCPCS: 80048; 80202

== ENCOUNTER → 2021-06-21 08:48 | Outpatient (CLI) | payer MEDICARE, MEDICAID, SELFPAY | PROVIDERS: Visit Provider Emergency Medicine | DX: Z20.822 Contact with and (suspected) exposure to COVID-19 (principal) | CPT/HCPCS: U0003 ==

== ENCOUNTER 2021-06-23 08:03 | Day surgery (SDC) | payer MEDICARE, MEDICAID, SELFPAY ==
[2021-06-23] VITALS (9 sets, daily range): BP systolic 117–149; BP diastolic 70–96; PULSE 76–104; RESP 14–20; TEMP 36.1–36.9; O2SAT 95–99; BMI 30.2
--- NOTE | 2021-06-23 09:28 | P.PN_ITS ---
[facility] Anesthesia Checklist - Patient Identification Patient Identification: Arm Band - Structural Data Admitted From: Home Planned Operative Procedure/s: I & D Consent for Planned Operative Procedure(s) Verified: Yes - NPO Status Verified Time NPO: 00:00 - Airway Assessment C-Spine Mobility Assessed: Yes TMJ Mobility Assessed: Yes Dentition: Edentulous - Neurological Assessment Level of Consciousness: Awake Hx Seizures: No Numbness or tingling in extremities: No - Anesthesia Plan Anesthesia Risk discussed: Yes Anesthesia Plan: Verified ASA Class: III Anesthesia Type: General [facility] History I have reviewed the patient's past medical history: Yes Medical History: Reports:: Cerebrovascular Accident Denies:: Cancer, Coronary Artery Disease, Diabetes Mellitus Type 1, Hyperlipidemia, Hypertension, Internal Pacemaker, MRSA, Seizures *Have you ever received a pneumonia vaccine?: No *Have you received a flu vaccine this season?: No Other Medical History: Reports: Other (Hx of clots) Anesthesia experience/problems:: None Other Surgeries: Yes: Other. No: Pacemaker Amputation: Yes (Right great toe) - *Social History Smoking Status: Current every day smoker Tobacco Type: cigarettes # Packs/Day (cigarettes): 1 Alcohol Intake: never Alcohol Intake Frequency:: holidays/special occasions only Substance Use Type: denies use *Occupational Status:: other *Travel in the last 8 weeks: None Family Hx:: No significant family history
--- NOTE | 2021-06-23 12:30 | HMH.OPNOTE ---
Date of procedure: 06/23/21 Pre-op Diagnosis:: 1. Right TMA wound dehiscence 2. S/p right TMA on 05/17/21 3. Hx of right foot cellulitis, osteomyelitis 4. MRSA Post-op Diagnosis:: Same Procedure performed:: 1. Right foot TMA wound debridement 2. Right foot revision of TMA flap (delayed primary closure) 3. Right foot bone biopsy 4. Application of wound vac 5. Suture removal Surgeon:: Maame Yost DPM ROOMS DIRECTOR:: Jax Ortiz Anesthesia: GETA, local (20cc 0.5% marcaine plain) Estimated blood loss (mL): 15 Clinical Note:: Patient is 56M who on 05/17/21-s/p Right foot I&D, Right transmetatarsal amputation, VERNON, Derotational skin flap, jesse of antibiotic beads, jesse of MANUELITO drain. He had wound dehisence. We discussed conservative versus surgical treatment options. We discussed conservative care including continued oral vs IV antibiotics and local wound care versus surgical wound debridement. Patient understands that he could have wound healing complications including delayed healing and infection. We discussed that if the wound does not heal, it is possible that they may need more debridement. Patient understands if infection spreads into the bone, it may warrant proximal amputation and could result in further loss of partial foot or loss of leg. We discussed the risks and benefits in great detail. Other surgical risks include: prolonged pain and swelling, further infection requiring oral or IV antibiotics, delay in healing of soft tissue or bone, nerve or blood vessel damage, CRPS/RSD, DVT, anesthesia complications, and even . All questions answered. Patient verbalized understanding. Consent obtained. Operative findings:: Pre debridement, wound noted to TMA site. Wound was fibrotic and had intact black eschar. The wound measured 8.5 x 1.5 x 3.5cm. It did track laterally to the fifth metatarsal. There was no purulence malodor or drainage noted. Nonviable soft tissue was removed. Bone biopsy performed to the fifth metatarsal. Wound sharply excisionally debrided with a 15 blade, forceps, curette and rongeur through skin into subcutaneous tissue full-thickness to the level of the fifth metatarsal laterally. Post delayed primary closure, wound noted to medial TMA site. The site was 100% granular and measures 0.7x0.5x0.2cm. Operative note:: On this date and time patient was deemed an appropriate surgical candidate. With informed consent signed, the patient was taken to the operating theater room. The patient was positioned supine. General anesthesia was induced. No tourniquet used. IV Vanco, Cefepime 1g given today. Pre-op right foot block given with 20 cc 0.5% marcaine plain. The right extremity was prepped and draped in normal sterile fashion. Right foot suture removal: All remaining sutures were removed from TMA site. ~8 sutures removed. Right wound debridement: Attention was directed to the distal foot were transmetatarsal amputation was noted. Wound dehiscence noted. There was no purulence malodor or drainage noted. Utilizing a 15 blade, forceps, curette and rongeur the wound was sharply excisionally debrided full-thickness through skin subcutaneous tissue down to the level of the fifth metatarsal laterally. All nonviable soft tissue was removed. No obvious bone infection osteomyelitis noted. Right bone biopsy: Attention was then directed to the fifth metatarsal. The bone felt hard and looked white. It was not soft and crumbly. Rongeur used to remove a piece of 5th met and sent for bone culture and pathology. Right foot revision of TMA flap and delayed primary closure: Post debridement, there was some bleeding was noted. Granular base was noted. No purulence or signs of infection noted. Next Xperience 500mL x2, used in pulse lavage to flush the wound site. The wound was reexplored and no further signs of infection noted. 2-0 Vicryl used to reapproximate subcutaneous tissue laterally. 2-0 Prolene was used to close skin in an interrupted mattress suture f
--- NOTE | 2021-06-23 12:31 | HMH.ANESI ---
[facility] Anesthesia Record Part I Intake, IV Amount: 500 Estimated blood loss (mL): 5 Urine output (mL): 0 Blood Pressure: 126/91 SaO2: 96 Pulse Rate: 104 Respiratory Rate: 16 Temperature: 98.5 F Patient is:: Awake Stable to PACU at:: 12:30
--- NOTE | 2021-06-23 14:51 | SUR.PHASEI ---
1259- detailed report called to lina swanson in postop by lina ureña
--- NOTE | 2021-06-25 14:01 | P.PN_ITS ---
[facility] Anesthesia Record Part II Discharge Time: 12:59 Destination: Surgical Day Care (OP Surgery) PACU nurse assessment reviewed?: Yes Patient Condition:: Good Anesthesia Complications:: None Swallowing reflex intact?: Yes Cyanosis?: No Blood Pressure: 124/86 Pulse Rate: 92 Temperature: 97.2 F Mental Status: Alert & Oriented Pain level:: 0 Nausea and/or vomitting:: None Intake, IV Amount: 0
[2021-06-25 14:02] VITALS: BP 124/86; PULSE 92; TEMP 36.2
== END 2021-06-23 13:35 ==
LOC: OR 08:06
PROVIDERS: PCP Emergency Medicine; Visit Provider Podiatrist
DX: T81.31XA Disruption of external operation (surgical) wound, not elsewhere classified, initial encounter (principal); M86.671 Other chronic osteomyelitis, right ankle and foot; F17.210 Nicotine dependence, cigarettes, uncomplicated; Z91.19 Patient's noncompliance with other medical treatment and regimen; L03.115 Cellulitis of right lower limb; B96.5 Pseudomonas (aeruginosa) (mallei) (pseudomallei) as the cause of diseases classified elsewhere; B96.89 Other specified bacterial agents as the cause of diseases classified elsewhere; Z22.322 Carrier or suspected carrier of Methicillin resistant Staphylococcus aureus
CPT/HCPCS: 11042; 11045; 20240; 87070; 87077; 87081; 87186; 87205; 88304; 88305; 88311; 96374; J0692; J3370

== ENCOUNTER → 2021-06-28 15:49 | Outpatient (CLI) | payer MEDICARE, MEDICAID, SELFPAY ==
[2021-06-28 16:31] LABS: Anion Gap 11.5 mEq/L (5-15); Blood Urea Nitrogen 12 mg/dl (9-20); Calcium 9.1 mg/dl (8.4-10.2); Carbon Dioxide 33 mmol/L (22.0-30.0); Chloride 99 mmol/L (98-107); Estimated Glomerular Filt Rate 116 ml/min (>60); GFR (African American) 140 ML/MIN (>60); Glucose 105 mg/dl (74-100); Potassium 4.5 mmoL/L (3.5-5.1); Sodium 139 mmol/L (136-145)
[2021-06-28 16:47] LABS: Gentamicin,Trough 2.1 ug/ml (0.0-2.0)
[2021-06-28 17:53] LABS: Gentamicin,Peak 10.8 ug/ml (4.0-8.0)
== END ==
PROVIDERS: Visit Provider Emergency Medicine
DX: M86.671 Other chronic osteomyelitis, right ankle and foot (principal); Z51.81 Encounter for therapeutic drug level monitoring
CPT/HCPCS: 36415; 80048; 80170

== ENCOUNTER → 2021-06-30 17:36 | Outpatient (CLI) | payer MEDICARE, MEDICAID, SELFPAY ==
[2021-06-30 18:18] LABS: Anion Gap 13.5 mEq/L (5-15); Blood Urea Nitrogen 16 mg/dl (9-20); Calcium 8.8 mg/dl (8.4-10.2); Carbon Dioxide 33 mmol/L (22.0-30.0); Chloride 97 mmol/L (98-107); Estimated Glomerular Filt Rate 99 ml/min (>60); GFR (African American) 120 ML/MIN (>60); Glucose 84 mg/dl (74-100); Potassium 4.5 mmoL/L (3.5-5.1); Sodium 139 mmol/L (136-145)
[2021-06-30 18:39] LABS: Gentamicin,Trough 1.8 ug/ml (0.0-2.0)
== END ==
PROVIDERS: Visit Provider Emergency Medicine
DX: L97.519 Non-pressure chronic ulcer of other part of right foot with unspecified severity (principal); Z51.81 Encounter for therapeutic drug level monitoring
CPT/HCPCS: 80048; 80170

== ENCOUNTER 2021-07-06 13:00 | Outpatient (RCR) | payer MEDICARE, MEDICAID, SELFPAY ==
--- NOTE | 2021-06-14 11:06 | HMH.PTOPWND ---
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 He reports significant pain in the R foot failry constantly at 9/10, you just have to learn to live with it. His wound presents with sutures and marlin in place with black eschar and yellow slough throughout the wound bed. He is currently staying at [facility] for [place], wound care and abx. He is scheduled for another surgery on 06/23/21. PMH: prior CVA, MRSA. Subjective Subjective Pt currently reports 9/10 pain in the R foot. Wound Eval Wound Right Anterior Foot Wound Type Incision Is This a Chronic Wound Yes Wound Length (cm) 3.0 Wound Width (cm) 10.0 Wound Bed Appearance Yellow,Slough,Eschar,Sutures, [place] Percentage of Slough (%) 40 Percentage of Eschar (Black) (%) 60 Wound Margins Description Indistinct Edema Type Pitting Edema Degree 2+ Query Text:1+ Trace, Barely Detectable, Rebound 15-30 seconds 2+ Moderate, Slight Indentation, Rebound 10-20 seconds 3+ Deep, Deeper Indentation, Rebound > 30 seconds 4+ Very Deep, Rebound > 60 seconds Edema Appearance Puffy Drainage Description Serosanguineous Drainage Amount Small Wound Topical Solution/Irrigant Saline Irrigant Primary Dressing Gauze Pad Comment betadine Wound Secondary Dressing Type Gauze Roll/Wrap,Elastic Bandage Wound Debridement Method Forceps,Gauze Wound Debridement Amount of Tissue Minimal Removed Dressing Change Patient Tolerance Tolerated Well Wound Problems/Impairments Impairments Problems/Impairmments Palpation Tenderness,Impaired Range of Motion,Impaired Strength,Impaired Endurance, Impaired Transfers,Impaire
== END 2021-07-06 13:05 | disposition home or self-care (01) ==
LOC: PT 13:00
PROVIDERS: PCP Emergency Medicine; Visit Provider Podiatrist
DX: Z89.431 Acquired absence of right foot (principal); Z98.890 Other specified postprocedural states
CPT/HCPCS: 97162; 97597; 97605

== ENCOUNTER → 2021-07-09 07:57 | Outpatient (CLI) | payer MEDICARE, MEDICAID, SELFPAY ==
[2021-07-09 09:26] LABS: Anion Gap 10.7 mEq/L (5-15); Blood Urea Nitrogen 15 mg/dl (9-20); Calcium 8.8 mg/dl (8.4-10.2); Carbon Dioxide 35 mmol/L (22.0-30.0); Chloride 99 mmol/L (98-107); Estimated Glomerular Filt Rate 116 ml/min (>60); GFR (African American) 140 ML/MIN (>60); Glucose 86 mg/dl (74-100); Potassium 4.7 mmoL/L (3.5-5.1); Sodium 140 mmol/L (136-145)
[2021-07-09 09:31] LABS: Gentamicin,Trough 1.1 ug/ml (0.0-2.0)
[2021-07-09 10:54] LABS: Gentamicin,Peak 6.9 ug/ml (4.0-8.0)
== END ==
PROVIDERS: Visit Provider Emergency Medicine
DX: L03.90 Cellulitis, unspecified (principal); Z51.81 Encounter for therapeutic drug level monitoring
CPT/HCPCS: 80048; 80170

== ENCOUNTER → 2021-07-13 07:36 | Outpatient (CLI) | payer MEDICARE, MEDICAID, SELFPAY ==
[2021-07-13 08:28] LABS: Anion Gap 12.6 mEq/L (5-15); Blood Urea Nitrogen 15 mg/dl (9-20); Calcium 8.8 mg/dl (8.4-10.2); Carbon Dioxide 34 mmol/L (22.0-30.0); Chloride 99 mmol/L (98-107); Estimated Glomerular Filt Rate 99 ml/min (>60); GFR (African American) 120 ML/MIN (>60); Glucose 84 mg/dl (74-100); Potassium 4.6 mmoL/L (3.5-5.1); Sodium 141 mmol/L (136-145)
[2021-07-13 08:33] LABS: Gentamicin,Trough 1.2 ug/ml (0.0-2.0)
[2021-07-13 16:30] LABS: Gentamicin,Peak 5.2 ug/ml (4.0-8.0)
== END ==
PROVIDERS: Visit Provider Emergency Medicine
DX: Z51.81 Encounter for therapeutic drug level monitoring (principal)
CPT/HCPCS: 80048; 80170

== ENCOUNTER → 2021-07-20 16:12 | Outpatient (CLI) | payer MEDICARE, MEDICAID, SELFPAY | PROVIDERS: Visit Provider Podiatrist | DX: Z01.812 Encounter for preprocedural laboratory examination (principal); Z11.52 Encounter for screening for COVID-19 | CPT/HCPCS: C9803; U0003; U0005 ==

== ENCOUNTER 2021-07-22 11:54 | Day surgery (SDC) | payer MEDICARE, MEDICAID, SELFPAY ==
[2021-07-21 12:39] VITALS: BMI 29.5
[2021-07-22 12:20] VITALS: BP 118/74; PULSE 84; RESP 18; TEMP 37.1; O2SAT 84
[2021-07-22 13:27] VITALS: BP 139/72; PULSE 81; RESP 16; TEMP 37.1; O2SAT 98
--- NOTE | 2021-07-22 13:30 | HMH.OPNOTE ---
Date of procedure: 07/22/21 Pre-op Diagnosis:: 1. Right foot wound/ulcer 2. S/p Right TMA Post-op Diagnosis:: Same Procedure performed:: 1. Right foot wound debridement 2. Right foot application of Apligraf Surgeon:: Maame Yost DPM Anesthesia: none Estimated blood loss (mL): 1 Clinical Note:: The patient has no new signs of infection. The wound base appears healthy and ready for skin graft substitute. We discussed continued local wound care versus application of graft. After a long discussion with the patient in regards to the conservative versus surgical treatment for the wound, the patient has elected to proceed with surgery because the wound is healthy, there will be a faster return to work and activities. Patient does not want to go home from the SNF facility. Given the number of complications postoperatively, recommend he stay in the facility until wound healed. The patient has been instructed on the planned procedure, all risk versus benefits of the procedure discussed. These include but are not limited to: bleeding, infection, nerve and blood vessel damage, need for further surgery, failure or need for re-application of graft, delay in healing of soft tissue, prolonged pain and recovery, CPRS/RSD, DVT and local anesthetic complications. No guarantees were given. All questions fully answered. The patient verbalized understanding and agreed to proceed with surgery. Written consent was obtained. Operative findings:: The right foot wound noted to previous TMA amputation site. The wound had no SOI. Pre debridement: 1.5x0.9x0.1cm. It was sharply excisional debrided with curette, non-viable soft tissue thru skin into/involving subq. It did not extend into the deep fascia or to bone. No purulence drainage or malodor noted. Post debridement: Right TMA site wound: medially, 100% granular, 1.7 x 1.1 x 0.1cm. Operative note:: On this date and time patient was deemed an appropriate surgical candidate. With informed consent signed, the patient was taken to the local procedure operating theater room. The patient was positioned supine. No anesthesia was induced. No tourniquet used. No local anesthesia used. Right foot transmetatarsal wound ulcer debridement: The right lower extremity was prepped and draped in normal sterile fashion. Attention was directed to the medial dorsal aspect of the right TMA where an ulcer/wound dehiscence was noted. Utilizing a sharp curette the ulcer was sharply excisionally debrided through the skin into and involving subcutaneous tissue. No signs of infection noted. See operative findings for pre and postop measurements. Some bleeding noted. Saline irrigation with gentamicin was used to flush the ulcer site. Skin was cleansed. Right foot application of Apligraft: Using a sterile standard technique, the graft was prepared and fenestrated. The graft was not cut. A 44sq cm wound graft applied. It was applied/inserted over the wound. The remaining graft applied along the TMA incision. Mastisol and steri-strips were used to hold the graft in place. Adaptic then applied and secured with steri strips. A dry sterile dressing was then applied to foot. The patient tolerated the procedure well, without complications. Materials: Apligraf ([employer]) Expiration Date: 2021-07-30 Lot: [id number] Discharge/Plan: Ok to discharge back to SNF when ready and vss. SNF ORDERS: -Maintain dressing and wound vac clean dry and intact to right foot. -Do not soak foot, or get wet in shower (cover dressing with bag). -Continue Linezolid 600mg po Q12hr x 2w (07/14-07/28). -Fax weekly labs: cbc, cmp, esr, crp, to Dr. Mike and Dr. Yost -NWB to RLE in fracture boot with DME assistance (wheelchair or walker). Ok to put heel in boot for transfers. -F/u with Podiatry in Mon[place] 07/28/21 @1100 for skin check/graft application Condition: stable Disposition: same day Complications:: None
[2021-07-22 14:20] VITALS: BP 153/78; PULSE 84; RESP 16; O2SAT 99
== END 2021-07-22 14:20 | disposition home or self-care (01) ==
LOC: OUTP 11:56
PROVIDERS: PCP Emergency Medicine; Visit Provider Podiatrist
DX: E11.40 Type 2 diabetes mellitus with diabetic neuropathy, unspecified (principal); F17.210 Nicotine dependence, cigarettes, uncomplicated; L97.512 Non-pressure chronic ulcer of other part of right foot with fat layer exposed; Z89.421 Acquired absence of other right toe(s); Z89.422 Acquired absence of other left toe(s); Z22.322 Carrier or suspected carrier of Methicillin resistant Staphylococcus aureus; M86.671 Other chronic osteomyelitis, right ankle and foot; Z91.19 Patient's noncompliance with other medical treatment and regimen; T87.81 Dehiscence of amputation stump; Z79.84 Long term (current) use of oral hypoglycemic drugs
CPT/HCPCS: 15275; Q4101

== ENCOUNTER → 2021-08-02 16:19 | Outpatient (CLI) | payer MEDICARE, MEDICAID, SELFPAY ==
[2021-08-02 17:02] LABS: Basophils # 0.1 K/mm3 (0-0.2); Basophils % 0.9 % (0.1-2.0); Eosinophils # 0.1 K/mm3 (0.0-0.4); Eosinophils % 1.1 % (0.1-12.0); Hematocrit 44.5 % (42.0-52.0); Hemoglobin 14.6 g/dL (14.1-18.0); Lymphocytes # 2.2 K/mm3 (0.7-4.5); Lymphocytes % 25.6 % (10-50); Mean Corpuscular HGB Conc 32.8 g/dL (31.8-35.4); Mean Corpuscular Hemoglobin 26.3 pg (27.0-31.2); Mean Corpuscular Volume 80.3 fl (80-94); Mean Platelet Volume 8.6 fl (7.4-10.4); Monocytes # 0.6 K/mm3 (0.1-1.0); Monocytes % 6.6 % (1.7-9.3); Neutrophils # 5.6 K/mm3 (1.8-7.8); Neutrophils % 65.7 % (37.0-80.0); Platelet Count 252 K/mm3 (142-424); Red Blood Count 5.54 M/mm3 (4.60-6.20); Red Cell Distribution Width 14.5 % (11.5-17.5); White Blood Count 8.6 K/mm3 (4.8-10.8)
[2021-08-02 17:30] LABS: Alanine Aminotransferase 16 U/L (12-78); Albumin Level 4.3 g/dl (3.5-5.0); Albumin/Globulin Ratio 1.5 (1.1-1.8); Alkaline Phosphatase 80 U/L (38-126); Anion Gap 10.8 mEq/L (5-15); Aspartate Amino Transferase 23 U/L (17-59); Bilirubin,Total 0.3 mg/dl (0.2-1.3); Blood Urea Nitrogen 13 mg/dl (9-20); Calcium 9.3 mg/dl (8.4-10.2); Carbon Dioxide 32 mmol/L (22.0-30.0); Chloride 102 mmol/L (98-107); Estimated Glomerular Filt Rate 116 ml/min (>60); GFR (African American) 140 ML/MIN (>60); Globulin 2.9 g/dL (1.3-3.2); Glucose 89 mg/dl (74-100); Potassium 4.8 mmoL/L (3.5-5.1); Sodium 140 mmol/L (136-145); Total Protein,Serum 7.2 g/dl (6.3-8.2)
[2021-08-02 17:35] LABS: C-Reactive Protein 13.7 mg/L (0-4)
[2021-08-02 18:49] LABS: Erythrocyte Sedimentation Rate 16 mm/hr (0-20)
== END ==
PROVIDERS: Visit Provider Nurse Practitioner
DX: Z98.890 Other specified postprocedural states (principal); L03.90 Cellulitis, unspecified
CPT/HCPCS: 36415; 80053; 85025; 85651; 86140

== ENCOUNTER 2021-12-10 21:29 | Emergency (ER) | payer MEDICARE, MEDICAID, SELFPAY ==
[2021-12-10 21:30] VITALS: BP 145/96; PULSE 79; RESP 20; TEMP 36.5; O2SAT 99; BMI 27.7
--- NOTE | 2021-12-10 21:43 | ECG_ITS ---
APPROVED REPORT Exam: Resting ECG HR:84 bpm ECG Measurements Heart Rate 84 AXES SC 153 P 62 QRSd 105 QRS 48 QT 363 T 96 QTc 404 Conclusion SINUS RHYTHM NORMAL ECG UNCONFIRMED REPORT Electronically signed by : Mahamed Chapman MD 12/11/2021 09:10:34
--- NOTE | 2021-12-10 21:55 | CT_ITS ---
PROCEDURE INFORMATION: Exam: CT Abdomen And Pelvis With Contrast Exam date and time: 12/10/2021 9:55 PM Age: 56 years old Clinical indication: Other: Blood inurine; Additional info: Gu bleeding TECHNIQUE: Imaging protocol: Computed tomography of the abdomen and pelvis with contrast. Total images: 327 Radiation optimization: All CT scans at this facility use at least one of these dose optimization techniques: automated exposure control; mA and/or kV adjustment per patient size (includes targeted exams where dose is matched to clinical indication); or iterative reconstruction. Contrast material: ISOVUE; Contrast volume: 75 ml; Contrast route: IV; COMPARISON: CR XR CHEST PORTABLE PICC PLAC 05/18/2021 3:59 PM FINDINGS: Lungs: Clear lung bases. Coronary arteries: Calcific coronary artery disease is evident. Liver: Normal. No mass. Gallbladder and bile ducts: Normal. No calcified stones. No ductal dilation. Pancreas: Normal. No ductal dilation. Spleen: Normal. No splenomegaly. Adrenal glands: Normal. No mass. Kidneys and ureters: Normal. No hydronephrosis. Stomach and bowel: Unremarkable. No obstruction. No mucosal thickening. Appendix: Normal appendix. Intraperitoneal space: Unremarkable. No free air. No significant fluid collection. Vasculature: Unremarkable. No abdominal aortic aneurysm. Lymph nodes: Nonspecific prominent inguinal lymph nodes are present. Urinary bladder: Unremarkable as visualized. Reproductive: Unremarkable as visualized. Bones/joints: Bilateral femoral neck orthopedic hardware. T10 through T12 compression deformity appears likely longstanding/chronic. Moderate spinal degenerative changes. Facet joint degenerative changes are present. Multifocal neural foraminal stenosis, due to degeneration. [place] left spinal scoliosis. Soft tissues: Unremarkable. IMPRESSION: 1. Unremarkable appearance of the kidneys, ureter and urinary bladder with no source of bleeding identified on this exam. 2. No ureteral stone or hydronephrosis. 3. Normal appendix.
[2021-12-10 22:03] LABS: Basophils # 0.1 K/mm3 (0-0.2); Basophils % 0.7 % (0.1-2.0); Eosinophils # 0.2 K/mm3 (0.0-0.4); Eosinophils % 2.3 % (0.1-12.0); Hematocrit 48.7 % (42.0-52.0); Hemoglobin 16.3 g/dL (14.1-18.0); Lymphocytes # 2.4 K/mm3 (0.7-4.5); Lymphocytes % 29.1 % (10-50); Mean Corpuscular HGB Conc 33.4 g/dL (31.8-35.4); Mean Corpuscular Hemoglobin 27.5 pg (27.0-31.2); Mean Corpuscular Volume 82.4 fl (80-94); Mean Platelet Volume 7.8 fl (7.4-10.4); Monocytes # 0.4 K/mm3 (0.1-1.0); Monocytes % 4.6 % (1.7-9.3); Neutrophils # 5.2 K/mm3 (1.8-7.8); Neutrophils % 63.2 % (37.0-80.0); Platelet Count 259 K/mm3 (142-424); Red Blood Count 5.91 M/mm3 (4.60-6.20); Red Cell Distribution Width 14.7 % (11.5-17.5); White Blood Count 8.2 K/mm3 (4.8-10.8)
[2021-12-10 22:10] LABS: Chloride 98 mmol/L (98-107); Potassium 3.8 mmoL/L (3.5-5.1); Sodium 137 mmol/L (136-145)
[2021-12-10 22:12] LABS: Alanine Aminotransferase 18 U/L (12-78); Aspartate Amino Transferase 25 U/L (17-59); Blood Urea Nitrogen 14 mg/dl (9-20); Creatinine Clearance Estimated 124 mL/min (50-200); Estimated Glomerular Filt Rate 87 ml/min (>60); GFR (African American) 105 ML/MIN (>60)
[2021-12-10 22:13] LABS: Albumin Level 4.5 g/dl (3.5-5.0); Albumin/Globulin Ratio 1.4 (1.1-1.8); Alkaline Phosphatase 107 U/L (38-126); Anion Gap 8.8 mEq/L (5-15); Bilirubin,Total 0.5 mg/dl (0.2-1.3); Carbon Dioxide 34 mmol/L (22.0-30.0); Globulin 3.3 g/dL (1.3-3.2); Total Protein,Serum 7.8 g/dl (6.3-8.2)
[2021-12-10 22:14] LABS: Microscopic, Urine URINE MICROSCOPIC (MICROSCOPIC)
[2021-12-10 22:14] LABS: Calcium 8.4 mg/dl (8.4-10.2); Glucose 72 mg/dl (74-100)
[2021-12-10 22:17] LABS: Appearance,Urine SL CLOUDY (Clear); Bilirubin,Urine Negative (Negative); Blood, Urine Negative (Negative); Color,Urine YELLOW (Yellow); Glucose,Urine (UA) Negative (Negative); Ketones,Urine Negative (Negative); Leukocyte Esterase,Urine Negative (Negative); Nitrate,Urine Negative (Negative); PH,Urine 5.5 (5.0-8.5); Protein,Urine Negative (Negative); Specific Gravity, Urine >= 1.030 (1.005-1.030); Urobilinogen,Urine 0.2 EU/dl (0.2)
[2021-12-10 23:48] VITALS: BP 133/84; PULSE 78; O2SAT 99
--- NOTE | 2021-12-10 23:57 | HMH.EDUROGM ---
ED Disposition Clinical Impression: Hematuria Qualifiers: Hematuria type: unspecified type Qualified Code(s): R31.9 - Hematuria, unspecified Disposition: Home, Self-Care Condition on Discharge: Good Instructions: DI for Hematuria Additional Instructions: fluids and use meds and see pcp next week Referrals: Aron Shea MD [Primary Care Provider] - - Critical Care Critical Care Time: No Attestation: On 12/10/21, the high probability of a clinically significant, sudden or life threatening deterioration of the following system(s) required my full and direct attention, intervention and personal management. The time I documented below is in addition to time spent performing reported procedures but includes the following listed in this critical care notation. Medical Decision Making - Medical Records Medical records reviewed: Yes: I reviewed the patient's medical records. - Benja Inquiry Pt receiving controlled substance: No Vital Signs: 12/10/21 21:30 12/10/21 23:48 Temperature 97.7 F Temperature Source Oral Pulse Rate 78 Pulse Rate [Apical] 79 Respiratory Rate 20 Blood Pressure 133/84 Blood Pressure [Right Arm] 145/96 H Blood Pressure Mean [Right Arm] 112 Blood Pressure Source [Right Arm] Automatic Cuff Blood Pressure Position [Right Arm] Sitting 02 Sat by Pulse Oximetry 99 99 Oxygen Delivery Method Room Air Room Air - Lab Data Lab results reviewed: Yes: I reviewed the patient's lab results. Lab Results 12/10/21 21:46: WBC 8.2, RBC 5.91, Hgb 16.3, Hct 48.7, MCV 82.4, MCH 27.5, MCHC 33.4, RDW 14.7, Plt Count 259, MPV 7.8, Neut % (Auto) 63.2, Lymph % (Auto) 29.1, Mccreary % (Auto) 4.6, Eos % (Auto) 2.3, Baso % (Auto) 0.7, Neut # (Auto) 5.2, Lymph # (Auto) 2.4, Mccreary # (Auto) 0.4, Eos # (Auto) 0.2, Baso # (Auto) 0.1 12/10/21 21:46: Sodium 137, Potassium 3.8, Chloride 98, Carbon Dioxide 34 H, Anion Gap 8.8, BUN 14, Creatinine 0.90, Estimated Creat Clear 124, Estimated GFR 87, Est GFR ( Amer) 105, Glucose 72 L, Calcium 8.4, Total Bilirubin 0.5, AST 25, ALT 18, Alkaline Phosphatase 107, Total Protein 7.8, Albumin 4.5, Globulin 3.3 H, Albumin/Globulin Ratio 1.4 12/10/21 22:00: Urine Color Yellow, Urine Appearance Sl cloudy, Urine pH 5.5, Ur Specific [place] >= 1.030, Urine Protein Negative, Urine Glucose (UA) Negative, Urine Ketones Negative, Urine Blood Negative, Urine Nitrate Negative, Urine Bilirubin Negative, Urine Urobilinogen 0.2, Ur Leukocyte Esterase Negative, Urine RBC None, Urine WBC 3-5, Ur Squamous Epith Cells 5-10, Urine Bacteria None Result diagrams: 12/10/21 21:46 12/10/21 21:46 Orders (Tests/Meds): ED MEDICATIONS Discontinued Medications Generic Name Dose Route Start Last Admin Trade Name Freq PRN Reason Stop Dose Admin Sodium Chloride 1,000 mls @ 999 mls/hr 12/10/21 22:00 12/10/21 22:00 Sod Chlor 0.9% 1000ml Bag IV 12/10/21 23:00 999 mls/hr .Q1H1M KAREN Administration Iopamidol 75 ml 12/10/21 22:41 12/10/21 22:42 Iopamidol-370 (76%);100ml Bottle IV 12/10/21 22:42 75 ml ONCE ONE Administration Sodium Chloride 10 ml 12/10/21 22:41 12/10/21 22:42 Sodium Chloride 0.9% 10ml Syr (Rad Only) IV 12/10/21 22:42 10 ml ONCE ONE Administration Male Urogenital HPI - General Chief complaint: Urogenital-Male Stated complaint: Retal bleeding possible blood clot r leg Time Seen by Provider: 12/10/21 22:00 Mode of Arrival: Ambulatory Source of Information: Patient, Medical Record Limitations: No Limitations Description of Symptoms (Recalled from ER Triage Doc. by RN): Patient states that he has had peeing blood since December 04. States that the bleeding was much worse a couple of days ago but has since improved with decreased blood loss. Denies current abdominal pain, but states that he had been having abdominal pain up until a few days ago. States that he came to the er tonight because he was anxious because he had not yet been evaluated fo
[2021-12-11 00:06] VITALS: BP 138/85; PULSE 80; RESP 20; TEMP 36.8; O2SAT 99
== END 2021-12-11 00:21 | disposition home or self-care (01) ==
PROVIDERS: Emergency Provider Emergency Medicine; PCP Family Medicine
DX: R31.9 Hematuria, unspecified (principal); M79.661 Pain in right lower leg; E16.2 Hypoglycemia, unspecified; Z89.421 Acquired absence of other right toe(s); Z89.422 Acquired absence of other left toe(s); F17.210 Nicotine dependence, cigarettes, uncomplicated
CPT/HCPCS: 74177; 80053; 81001; 85025; 93005; 99283; 99284; Q9967

== ENCOUNTER 2023-03-18 12:51 | Emergency (ER) | payer MEDICARE, MEDICAID, SELFPAY ==
--- NOTE | 2023-03-18 12:56 | XR_ITS ---
PROCEDURE INFORMATION: Exam: XR Right Elbow Exam date and time: 03/18/2023 12:59 PM Age: 57 years old Clinical indication: Injury or trauma; Fall; Blunt trauma (contusions or hematomas); Elbow; Right TECHNIQUE: Imaging protocol: Radiologic exam of the right elbow. Views: 3 or more views. COMPARISON: No relevant prior studies available. FINDINGS: Bones/joints: There is no evidence of acute fracture.There is no evidence of malalignment or dislocation. Osteophyte formation off the olecranon Soft tissues: Normal. IMPRESSION: There is no evidence of acute fracture.There is no evidence of malalignment or dislocation.
[2023-03-18 13:28] VITALS: BP 139/78; PULSE 83; RESP 18; TEMP 36.6; O2SAT 98; BMI 32.5
--- NOTE | 2023-03-18 14:36 | EXP.UTC ---
Discharge Plan Disposition Patient Disposition: Home, Self-Care Condition: Good Prescriptions Prescriptions: New cephalexin [cephalexin] 500 mg tablet 500 mg PO BID 10 Days Qty: 20 0RF mupirocin 2 % ointment 1 applic topical BID Qty: 22 0RF No Action tamsulosin 0.4 mg capsule See Rx Instructions .ROUTE .COMPLEX Rx Instructions: TAKE 1 TABLET BY MOUTH ONCE DAILY trazodone 150 mg tablet 150 mg PO DAILY potassium chloride 10 mEq tablet extended release See Rx Instructions .ROUTE .COMPLEX Rx Instructions: TAKE 1 TABLET BY MOUTH EVERY DAY amitriptyline 50 mg tablet See Rx Instructions .ROUTE .COMPLEX Rx Instructions: TAKE 1 TABLET BY MOUTH EVERY DAY Eliquis 5 mg tablet See Rx Instructions .ROUTE .COMPLEX Rx Instructions: TAKE 1 TAB BY MOUTH TWO TIMES A DAY oxycodone-acetaminophen 10-325 mg tablet 1 tab PO TID gabapentin 300 mg capsule 300 mg PO TID Referrals Follow up/Referrals: Aron Shea MD [Primary Care Provider] - See instructions Activity Restrictions/Add. Instructions Additional Instructions/Restrictions: keep area clean and dry follow up with pcp have sutures removed in 7 days monitor for s/s of infection follow up if any concerns Clinical Impressions Clinical Impression: Laceration Instructions Patient Instructions: DI for Laceration Repair -- Simple Discharge ED Provider: Art ([facility])[place] [facility] [place] General Stated complaint: Fall@home 03/17 RT elbow lac Mode of Arrival: Ambulatory Source of Information: Patient Limitations: No Limitations Time Seen by Provider: 03/18/23 14:36 Description of Symptoms (Recalled from Triage Doc. by RN): fell at home last night and scrapped right elbow. HEENT Symptoms (Recalled from RN notes): Yes Resp Symptoms (Recalled from RN notes): No Skin Symptoms (Recalled from RN notes): No MS Symptoms (Recalled from RN notes): No Functional Status (Recalled from RN notes): n/a History of Present Illness Provider Complaint: 57 yr old male presents for rt elbow laceration r/t fall. pt states last pm around 10 he hit his arm on the headboard. last tetanus shot was 3 yrs ago per pt Related Data Home Medications Medication Instructions Recorded Confirmed amitriptyline 50 mg tablet See Rx Instructions .Route 03/18/23 03/18/23 .COMPLEX . apixaban 5 mg tablet (Eliquis) See Rx Instructions .Route 03/18/23 03/18/23 .COMPLEX . gabapentin 300 mg capsule 300 mg PO TID . 03/18/23 03/18/23 oxycodone-acetaminophen 10 mg-325 1 tab PO TID Pain 03/18/23 03/18/23 mg tablet potassium chloride 10 mEq See Rx Instructions .Route 03/18/23 03/18/23 tablet,extended release .COMPLEX . tamsulosin 0.4 mg capsule See Rx Instructions .Route 03/18/23 03/18/23 .COMPLEX . trazodone 150 mg tablet 150 mg PO DAILY . 03/18/23 03/18/23 Previous Rx's Medication Instructions Recorded cephalexin 500 mg tablet 500 mg PO BID 10 days #20 tabs 03/18/23 mupirocin 2 % topical ointment 1 applic topical BID #22 grams 03/18/23 Allergies Allergy/AdvReac Type Severity Reaction Status Date / Time acetaminophen [From Tylenol] AdvReac Verified 03/18/23 13:32 morphine AdvReac Verified 03/18/23 13:32 Worker's Comp Is this a Worker's Comp case?: [facility] Dis[facility]: The information contained in this section may have been updated after the patient was seen, as this information can be updated by other users. 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
[2023-03-18 14:58] VITALS: BP 139/78; PULSE 83; RESP 18; TEMP 36.6; O2SAT 98
== END 2023-03-18 14:57 | disposition home or self-care (01) ==
PROVIDERS: Emergency Provider Nurse Practitioner Family; PCP Family Medicine
DX: S51.011A Laceration without foreign body of right elbow, initial encounter (principal); W22.8XXA Striking against or struck by other objects, initial encounter; F17.210 Nicotine dependence, cigarettes, uncomplicated
CPT/HCPCS: 12001; 73080; 99204; 99213; G0463

== ENCOUNTER → 2023-09-11 07:26 | Outpatient (CLI) | payer MEDICARE, MEDICAID, SELFPAY ==
[2023-09-11 19:40] LABS: Alanine Aminotransferase 22 U/L (12-78); Albumin Level 3.5 g/dl (3.5-5.0); Albumin/Globulin Ratio 1.3 (1.1-1.8); Alkaline Phosphatase 86 U/L (38-126); Anion Gap 7.2 mEq/L (5-15); Aspartate Amino Transferase 30 U/L (17-59); Bilirubin,Total 0.3 mg/dl (0.2-1.3); Blood Urea Nitrogen 13 mg/dl (9-20); Calcium 8.5 mg/dl (8.4-10.2); Carbon Dioxide 32 mmol/L (22.0-30.0); Chloride 103 mmol/L (98-107); Chol/HDL Ratio 7.2 (1-3.5); Cholesterol 224 mg/dl (140-200); Estimated Glomerular Filt Rate 99 ml/min (>60); GFR (African American) 119 ML/MIN (>60); Globulin 2.7 g/dL (1.3-3.2); Glucose 116 mg/dl (74-100); HDL Cholesterol 31 mg/dl (40-60); Potassium 4.2 mmoL/L (3.5-5.1); Sodium 138 mmol/L (136-145); Total Protein,Serum 6.2 g/dl (6.3-8.2); Triglycerides 162 mg/dl (30-150); VLDL Cholesterol 32 mg/dL (0-40)
[2023-09-11 19:42] LABS: Basophils % 0.5 % (0.1-2.0); Eosinophils # 0.1 K/mm3 (0.0-0.4); Eosinophils % 1.1 % (0.1-12.0); Hematocrit 45.8 % (42.0-52.0); Hemoglobin 15.3 g/dL (14.1-18.0); Lymphocytes # 1.8 K/mm3 (0.7-4.5); Lymphocytes % 23.1 % (10-50); Mean Corpuscular HGB Conc 33.4 g/dL (31.8-35.4); Mean Corpuscular Hemoglobin 28.6 pg (27.0-31.2); Mean Corpuscular Volume 85.5 fl (80-94); Mean Platelet Volume 9.8 fl (7.4-10.4); Monocytes # 0.4 K/mm3 (0.1-1.0); Neutrophils # 5.5 K/mm3 (1.8-7.8); Neutrophils % 70.3 % (37.0-80.0); Platelet Count 204 K/mm3 (142-424); Red Blood Count 5.35 M/mm3 (4.60-6.20); Red Cell Distribution Width 14.1 % (11.5-17.5); White Blood Count 7.8 K/mm3 (4.8-10.8)
[2023-09-11 19:48] LABS: NT Pro Brain Natriuretic Pep. 60.4 pg/mL (0-125)
[2023-09-11 19:51] LABS: Direct LDL Cholesterol 155.12 mg/dL (100-129)
[2023-09-11 20:10] LABS: Prostate Specific Ag Screen 0.6 ng/ml (0.0-4.0); Thyroid Stimulating Hormone 1.71 uIU/mL (0.465-4.68)
[2023-09-11 20:25] LABS: Hemoglobin A1C 5.1 % (4.0-6.0)
== END ==
PROVIDERS: PCP Family Medicine; Visit Provider Family Medicine
DX: D68.51 Activated protein C resistance (principal); E11.9 Type 2 diabetes mellitus without complications; R06.02 Shortness of breath; E66.3 Overweight; Z12.5 Encounter for screening for malignant neoplasm of prostate; Z68.35 Body mass index [BMI] 35.0-35.9, adult
CPT/HCPCS: 80053; 80061; 83036; 83880; 84443; 85025; G0103

== ENCOUNTER → 2023-09-25 12:00 | Outpatient (CLI) | payer MEDICARE, MEDICAID, SELFPAY ==
[2023-09-27 11:14] LABS: Testosterone,Total 168 ng/dL (264-916)
== END ==
LOC: LAB.DROPOF 09-26 00:25
PROVIDERS: PCP Family Medicine; Visit Provider Family Medicine
DX: E29.1 Testicular hypofunction
CPT/HCPCS: 84403

== ENCOUNTER → 2023-10-10 07:56 | Outpatient (CLI) | payer MEDICARE, SELFPAY ==
--- NOTE | 2023-10-10 | CA_ITS ---
APPROVED REPORT Exam: Pharmacologic Technologist: Manisha Pickett, Ht: 6 ft 0 in Wt: 254 lbs BSA: 2.36 m2 HR: 75 bpm BP: 130/76 mmHg Rhythm: SR Medical History Medications: Potassium Chloride,,,,, Gabapentin,,,,, TAMSULOSIN,,,,, OxYCODONE,,,,, AmiTRIPTYLINE,,,,, ElIQUIS,,,,, Trazodone,,,,, NYstatin,,,,, Toresemide,,,,, Cardiac Risk Factors: HTN, Hyperlipidemia, Smoking Stress Test Details Test: LEXISCAN HR Resting HR: 77 bpm Max Heart Rate (APMHR): 160 bpm Max HR Achieved: 94 bpm Target HR (85% APMHR): 136 bpm % of APMHR: 59 Recovery HR: 83 bpm BP Resting BP: 130/76 mmHg Max BP: 130/76 mmHg Recovery BP: 120.0/68.0 mmHg ECG Resting ECG: NSR Stress ECG: No ST changes Arrhythmia: None Clinical Exercise duration: 04:00 min Highest Stage Achieved: Exercise capacity: 1.0 METs Stress ECG Conclusion During lexiscan pt experinced dyspnea and nausea. No arrhytmias noted. No significant ST changes CONCLUSION: EKG portion of test unremarkable due to lexiscan infusion. Myoview images are reported separately. Test Summary REST . . . . . . . Sitting REST 07:42 . . 77 . 130/ 76 . . Stage 1 . . . . . . . Myoview Injected Stage 1 01:00 . . 85 . . . . Stage 2 01:00 . . 88 . . . . Stage 3 01:00 . . 86 . 126/ 70 . . Stage 4 01:00 . . 83 . 124/ 73 . Stop exercise at 04:00 RECOVERY 01:00 . . 86 . . . . RECOVERY 02:00 . . 85 . 120/ 68 . . RECOVERY 02:40 . . 85 . 122/ 74 . . Electronically signed by : Sandhya White MD 10/14/2023 18:00:02
--- NOTE | 2023-10-10 07:57 | NM_ITS ---
APPROVED REPORT Exam: Nuclear Stress Test Indication: OBESITY, HTN, HYPERLIPIDEMIA, TOB USE, SOB Patient Location: Outpatient Stress Tech: Manisha Pickett NM Tech:Chandni Dueñas AB RT (R)(N)(M) Ht: 6 ft 2 in Wt: 350 lbs Bra Size: DD BP: 77/130 mmHg BSA: 2.76 m2 TID: 1.10 BMI: 44.9 History: OBESITY, HTN, HYPERLIPIDEMIA, TOB USE, SOB PATIENT COULD LAY ON STOMACH FOR PRONE IMAGES Procedure: Patient received 0.4 mg of intravenous Lexiscan, resting heart rate 77 bpm, resting blood pressure 130/76 mmHg, with Lexiscan maximum heart rate achieved was 86 bpm which is % of the maximum predicted heart rate and blood pressure was 126/70 mmHg. With Lexiscan, patient denied any complaint of chest pain. Cardiac Stress and Resting SPECT Images: Cardiac Stress and Resting SPECT images were obtained using technetium 99m Myoview 31.0 mCi stress and 10.63 mCi at rest. The patient could not lie on his abdomen. Therefore, prone stress imaging could not be performed. This may affect the diagnostic interpretation of the study findings. Resting and stress images in supine position demonstrate a large sized, moderate, predominantly fixed perfusion defect in inferior LV wall. There are some regions of reversibility in the mid inferior segment. Gated imaging demonstrates low normal global LV systolic function. There is mild hypokinesis of the basal inferior LV wall. LVEF is calculated at 50%. Conclusion: Large sized, moderate, predominantly fixed perfusion defect in inferior LV wall. There are some regions of reversibility in the mid inferior segment. Findings are suggestive of partial reversible ischemia. Gated imaging demonstrates low normal global LV systolic function. There is mild hypokinesis of the basal inferior LV wall. LVEF is calculated at 50%. Electronically signed by : Sandhya White MD 10/14/2023 18:02:43
--- NOTE | 2023-10-10 08:29 | CA_ITS ---
APPROVED REPORT EXAM: Comprehensive 2D, Doppler, and color-flow Echocardiogram Sail Cutter: SUJEY Felix, RVS Ht: 6 ft 0 in Wt: 254lbs BSA: 2.36 BP: 134/64 mmHg Indications: SOB, PAD, Smoker, CP, Edema, HTN, HLD Echo Enhancing Agent Comments: TDS: Due to excessive chest circumference 2D Dimensions Left Atrium 2.80 cm M: 3.0 - 4.0 LA Volume 59.20 mL LA Volume Index 24.56 mL/m2 (M/F) 16-34 M-Mode Dimensions RVDd 2.37 cm (0.9-2.6) LA Diam 3.31 cm (1.9-4.0) LVDd 5.38 cm (3.5-5.7) LVDs 3.93 cm (3.5-5.7) IVSd 1.20 cm (0.6-1.1) PWd 1.20 cm (0.6-1.1) EF (Teich) 52.10% EPSs 1.33 cm FS 27.00% EDV (Teich) 140.10 mL TAPSE 2.06 (<1.7) ESV (Teich) 67.10 mL LV Diastology E Decel Time 150 (160-240 msec) E/A Ratio 1.30 MED A' 11.70 cm/s LAT A' 16.50 cm/s Aortic Valve YVONNE Index 1.36 cm2/m2 AoV Peak Tung. 134.0 (50-130 cm/s) AO Peak GR. 7.20 mmHg AO Mean GR. 3.50 (<5 mmHg) AO VTI 26.3 (18-25 cm) YVONNE (VTI) 3.34 (2.5-4.5 cm2) Mitral Valve MV A Velocity 66.0 (40-130 cm/s) E/A Ratio 1.30 Tricuspid Valve TR P. Velocity 183.00 cm/s RAP Estimate 10.00 mmHg RVSP 23.30 mmHg Left Ventricle The left ventricle is normal size. The left ventricular systolic function is normal. The left ventricular ejection fraction is within the normal range. There is normal left ventricular wall thickness. There is normal LV segmental wall motion. The left ventricular diastolic function is normal. LVEF is 55%. Right Ventricle The right ventricle is normal size. The right ventricular systolic function is normal. Atria The left atrium size is normal. The right atrium size is normal. The interatrial septum is not well-visualized. Aortic Valve The aortic valve is mildly thickened. There is no aortic valvular stenosis. No aortic regurgitation is present. Mitral Valve The mitral valve is normal in structure. No evidence of mitral valve stenosis. Trace mitral regurgitation. Tricuspid Valve The tricuspid valve leaflets are thin and pliable. Trace tricuspid regurgitation. RVSP is normal. Pulmonic Valve The pulmonic valve is not well-visualized. Great Vessels The aortic root is normal in size. The ascending aorta is not well-visualized. The IVC is not well-visualized. Pericardium There is no pericardial effusion. Other Information Study Quality: Technically Difficult Conclusion Technically difficult study due to poor acoustic windows. Normal biventricular systolic function. No significant valvular stenosis or regurgitation in the visualized valves. Electronically signed by : Sandhya White MD 10/15/2023 22:35:38
--- NOTE | 2023-10-10 08:32 | CA_ITS ---
FINAL REPORT TECHNIQUE: Arterial duplex Doppler evaluation of the lower extremities with spectral analysis. CLINICAL HISTORY: DECREASED PULSES,PRIOR AMPUTATION RT FOOT,EDEMA,HTN,HLD,HX SMOKING COMPARISON: None FINDINGS: Right lower extremity, flow velocities (cm per second): Common femoral artery: 119 Proximal SFA: 109 Distal SFA: 175 Popliteal: 102 Anterior tibial artery: 61 Posterior tibial artery: 146 Waveforms are triphasic in the common femoral artery, and biphasic in the superficial femoral artery through the popliteal artery. Below the popliteal artery the waveforms are monophasic. Left lower extremity, flow velocities (cm per second): Common femoral artery: 100 Proximal SFA: 147 Distal SFA: 120 Popliteal: 99 Anterior tibial artery: 105 Posterior tibial artery: 158 Waveforms are biphasic and triphasic. There is increased velocity in the left posterior tibial artery proximally, suggesting the possibility of a focal stenosis. IMPRESSION: Waveforms are noted to be biphasic and triphasic. 30 to 49% stenosis of the right distal femoral artery. 30 to 49% stenosis of the left mid posterior tibial artery. Reviewed, Interpreted and Dictated by Juliocesar Fabian MD Transcribed by Zelda Bruno Authenticated and [facility]
== END ==
LOC: RAD 07:57
PROVIDERS: PCP Family Medicine; Visit Provider Family Medicine
DX: L03.90 Cellulitis, unspecified (principal); R06.02 Shortness of breath; R60.0 Localized edema; L97.512 Non-pressure chronic ulcer of other part of right foot with fat layer exposed
CPT/HCPCS: 78452; 93017; 93018; 93306; 93925; A9502; J2785

== ENCOUNTER 2023-12-04 21:43 | Outpatient (CLI) | payer MEDICARE, SELFPAY ==
[2023-12-04 18:44] LABS: Alanine Aminotransferase 17 U/L (12-78); Albumin Level 3.4 g/dl (3.5-5.0); Albumin/Globulin Ratio 1.3 (1.1-1.8); Alkaline Phosphatase 123 U/L (38-126); Aspartate Amino Transferase 21 U/L (17-59); Bilirubin,Total 0.3 mg/dl (0.2-1.3); Blood Urea Nitrogen 13 mg/dl (9-20); Calcium 8.6 mg/dl (8.4-10.2); Carbon Dioxide 34 mmol/L (22.0-30.0); Chloride 105 mmol/L (98-107); Estimated Glomerular Filt Rate 86 ml/min (>60); GFR (African American) 104 ML/MIN (>60); Globulin 2.6 g/dL (1.3-3.2); Glucose 126 mg/dl (74-100); Sodium 140 mmol/L (136-145)
== END 2023-12-04 23:59 ==
LOC: LAB.DROPOF 21:44
PROVIDERS: PCP Family Medicine; Visit Provider Family Medicine
DX: E66.9 Obesity, unspecified (principal); Z68.36 Body mass index [BMI] 36.0-36.9, adult
CPT/HCPCS: 80053

== ENCOUNTER 2024-01-15 19:57 | Outpatient (CLI) | payer MEDICARE, SELFPAY ==
[2024-01-15 18:57] LABS: Alanine Aminotransferase 16 U/L (12-78); Albumin Level 3.6 g/dl (3.5-5.0); Albumin/Globulin Ratio 1.3 (1.1-1.8); Alkaline Phosphatase 122 U/L (38-126); Anion Gap 6.9 mEq/L (5-15); Aspartate Amino Transferase 21 U/L (17-59); Bilirubin,Total 0.5 mg/dl (0.2-1.3); Blood Urea Nitrogen 13 mg/dl (9-20); Calcium 8.9 mg/dl (8.4-10.2); Carbon Dioxide 32 mmol/L (22.0-30.0); Chloride 103 mmol/L (98-107); Estimated Glomerular Filt Rate 86 ml/min (>60); GFR (African American) 104 ML/MIN (>60); Globulin 2.7 g/dL (1.3-3.2); Glucose 123 mg/dl (74-100); Potassium 3.9 mmoL/L (3.5-5.1); Sodium 138 mmol/L (136-145); Total Protein,Serum 6.3 g/dl (6.3-8.2)
[2024-01-15 18:58] LABS: Hemoglobin A1C 5.4 % (4.0-6.0)
[2024-01-15 19:28] LABS: Thyroid Stimulating Hormone 2.28 uIU/mL (0.465-4.68)
[2024-01-17 08:40] LABS: Testosterone,Total 223 ng/dL (264-916)
== END 2024-01-15 23:59 ==
LOC: LAB.DROPOF 19:57
PROVIDERS: PCP Family Medicine; Visit Provider Family Medicine
DX: R68.89 Other general symptoms and signs (principal); E07.9 Disorder of thyroid, unspecified; E11.9 Type 2 diabetes mellitus without complications; E29.1 Testicular hypofunction
CPT/HCPCS: 80053; 83036; 84403; 84443

== ENCOUNTER 2024-09-09 15:15 | Outpatient (CLI) | payer MEDICARE, SELFPAY ==
[2024-09-09 18:44] LABS: Coronavirus 19, PCR Not Detected (NotDetected); Influenza A, PCR Not Detected (NotDetected); Influenza B, PCR Not Detected (NotDetected)
== END 2024-09-09 23:59 | disposition home or self-care (01) ==
LOC: LAB.DROPOF 09-10 09:49
PROVIDERS: PCP Family Medicine; Visit Provider Family Medicine
DX: J06.9 Acute upper respiratory infection, unspecified (principal)
CPT/HCPCS: 87636

== ENCOUNTER 2024-12-11 14:25 | Outpatient (CLI) | payer MEDICARE, SELFPAY ==
[2024-12-11 18:23] LABS: Basophils % 0.4 % (0.1-2.0); Eosinophils # 0.1 K/mm3 (0.0-0.4); Eosinophils % 0.9 % (0.1-12.0); Hematocrit 40.8 % (42.0-52.0); Hemoglobin 12.6 g/dL (14.1-18.0); Lymphocytes # 2.3 K/mm3 (0.7-4.5); Lymphocytes % 23.5 % (10-50); Mean Corpuscular HGB Conc 30.9 g/dL (31.8-35.4); Mean Corpuscular Hemoglobin 24.8 pg (27.0-31.2); Mean Corpuscular Volume 80.3 fl (80-94); Monocytes # 0.5 K/mm3 (0.1-1.0); Monocytes % 5.5 % (1.7-9.3); Neutrophils # 6.9 K/mm3 (1.8-7.8); Neutrophils % 69.5 % (37.0-80.0); Platelet Count 233 K/mm3 (142-424); Red Blood Count 5.08 M/mm3 (4.60-6.20); Red Cell Distribution Width 16.3 % (11.5-17.5); White Blood Count 9.9 K/mm3 (4.8-10.8)
[2024-12-11 18:38] LABS: Albumin Level 3.7 g/dl (3.5-5.0); Chloride 102 mmol/L (98-107); Potassium 4.3 mmoL/L (3.5-5.1); Sodium 138 mmol/L (136-145)
[2024-12-11 18:41] LABS: Alanine Aminotransferase 17 U/L (12-78); Albumin/Globulin Ratio 1.4 (1.1-1.8); Alkaline Phosphatase 139 U/L (38-126); Anion Gap 7.3 mEq/L (5-15); Aspartate Amino Transferase 25 U/L (17-59); Bilirubin,Total 0.4 mg/dl (0.2-1.3); Blood Urea Nitrogen 14 mg/dl (9-20); Calcium 8.5 mg/dl (8.4-10.2); Carbon Dioxide 33 mmol/L (22.0-30.0); Chol/HDL Ratio 3.9 (1-3.5); Cholesterol 122 mg/dl (140-200); Estimated Glomerular Filt Rate 98 ml/min (>60); GFR (African American) 119 ML/MIN (>60); Globulin 2.7 g/dL (1.3-3.2); Glucose 108 mg/dl (74-100); HDL Cholesterol 31 mg/dl (40-60); Total Protein,Serum 6.4 g/dl (6.3-8.2); Triglycerides 65 mg/dl (30-150); VLDL Cholesterol 13 mg/dL (0-40)
[2024-12-11 18:53] LABS: Direct LDL Cholesterol 69.01 mg/dL (100-129)
== END 2024-12-11 23:59 | disposition home or self-care (01) ==
LOC: LAB.DROPOF 12-12 12:32
PROVIDERS: PCP Family Medicine; Visit Provider Family Medicine
DX: G62.9 Polyneuropathy, unspecified (principal); R41.3 Other amnesia; F39 Unspecified mood [affective] disorder; E34.9 Endocrine disorder, unspecified; E66.9 Obesity, unspecified; Z68.32 Body mass index [BMI] 32.0-32.9, adult; D68.51 Activated protein C resistance; R60.0 Localized edema
CPT/HCPCS: 80053; 80061; 84443; 85025

== ENCOUNTER 2025-04-07 12:45 | Outpatient (CLI) | payer MEDICARE, SELFPAY ==
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
--- OUTSIDE RECORDS SUMMARY | 2025-04-01 16:25 | XMS_ITS | Encounter Summary ---
Author Organization [place] [address] Care Team Providers Care Technical Support 1 Software Engineer Name Role Phone Aron Shea MD Primary Care Provider [phone] Encounter Details Date Type Department Care Team (Latest Contact Info) Description 04/01/2025 4:25 PM EDT - 04/01/2025 11:59 PM EDT Hospital Encounter [facility] [place] [address] MCI (mild cognitive impairment) with memory loss (Primary Dx) Discharge Disposition: Home or Self [...] on file documented as of this encounter Functional Status * Is the [...] No 11/11/2016 2:03 PM Deepali Samaniego RN documented as of this encounter Mental Status * Because of a physical, mental or emotional condition, does this person have serious difficulty concentrating, remembering or making decisions? Answer Entry Date Author No 11/11/2016 2:03 PM Deepali Samaniego RN documented in this encounter Medications at Time [...] Discharge Disposition Disposition Code Departure Means Destination Home or Self Care documented in this encounter Plan of Treatment [...] Procedure Name Priority Date/Time Associated Diagnosis Comments SYPHILIS SCREEN WITH REFLEX RPR QUANT Callback 04/01/2025 4:48 PM EDT MCI (mild cognitive impairment) with memory loss VITAMIN B12/ FOLIC ACID Callback 04/01/2025 4:48 PM EDT MCI (mild cognitive impairment) with memory loss VITAMIN B1 (THIAMINE) WHOLE BLOOD -REF LAB Callback 04/01/2025 4:48 PM EDT MCI (mild cognitive impairment) with memory loss SEDIMENTATION RATE AUTOMATED Callback 04/01/2025 4:48 PM EDT MCI (mild cognitive impairment) with memory loss THYROID STIMULATING HORMONE Callback 04/01/2025 4:48 PM EDT MCI (mild cognitive impairment) with memory loss HEMOGLOBIN A1C Callback 04/01/2025 4:48 PM EDT MCI (mild cognitive impairment) with memory loss documented in this encounter Results * THYROID STIMULATING HORMONE (04/01/2025 4:48 PM EDT) TSH 2.000 0.270 - 4.200 mcIU/mL 04/01/2025 5:53 PM EDT [facility] Blood VENOUS BLOOD / Unknown Venipuncture / Unknown 04/01/2025 4:48 PM EDT 04/01/2025 4:48 PM EDT Narrative [facility] - 04/01/2025 5:53 PM EDT Ingestion of manuel doses of biotin (>5 mg/day) taken within 8 hours of drawing blood sample can interfere with this immunoassay test. Hammad Bruno MD CHEMISTRY ORDERABLES Final Result Performing Organization Address [facility] Co de Phone Number [facility] [address] [facility] , [place] [address] * SYPHILIS SCREEN WITH REFLEX RPR QUANT (04/01/2025 4:48 PM EDT) [facility] Trep Ab Index 0.04 <=0.99 Index Value 04/01/2025 6:53 PM EDT [facility] Comment: < 1.00 - Non-Reactive >=1.00 - Reactive NOTE: All reactive results will be reflexed to Quantitative Non-Treponemal(RPR)test. Blood VENOUS BLOOD / Unknown Venipuncture / Unknown 04/01/2025 4:48 PM EDT 04/01/2025 4:48 PM EDT Hammad Bruno MD CHEMISTRY ORDERABLES Final Result Performing Organization Address [facility] de Phone Number [facility] [facility] [address] [facility] , [place] [address] * VITAMIN B1 (THIAMINE) WHOLE BLOOD -REF LAB (04/01/2025 4:48 PM EDT) [facility] Vit B1 WB 118 70 - 180 nmol/L 04/05/2025 2:41 PM EDT [facility] Comment: INTERPRETIVE INFORMATION: Vitamin B1, Whole Blood This assay measures the concentration of thiamine diphosphate (TDP), the primary active form of vitamin B1. Approximately 90 percent of vitamin B1 present in whole blood is TDP. Thiamine and thiamine monophosphate, which comprise the remaining 10 percent, are not measured. This test was developed and its performance characteristics determined by [facility]. It has not been cleared or approved by the [place] Food and Drug Administration. This test was performed in a CLIA certified laboratory and is intended for clinical purposes. Performed By: [facility] [address] [place] [id number] [place] Winder: Rolan Milligan MD, PhD CLIA Number: [id number] Blood VENOUS BLOOD / Unknown Venipuncture / Unknown 04/01/2025 4:48 PM EDT 04/01/2025 4:48 PM EDT Hammad Bruno MD CHEMISTRY ORDERABLES Final Result [facility] [address] [place] [address] * (ABNORMAL) SEDIMENTATION RATE AUTOMATED (04/01/2025 4:48 PM EDT) Pathologist [facility] Sed Rate 26(H) 0 - 20 mm/hr 04/01/2025 5:31 PM EDT [facility] Blood VENOUS BLOOD / Unknown Venipuncture / Unknown 04/01/2025 4:48 PM EDT 04/01/2025 4:48 PM EDT Hammad Bruno MD HEMATOLOGY ORDERABLES Final Result Performing Organization Address City/[facility] Co de Phone Number [facility] [address] [place] [address] , [place] [address] * HEMOGLOBIN A1C (04/01/2025 4:48 PM EDT) Pathologist [facility] Hgb A1C 5.1 4.2 - 5.6 % 04/01/2025 6:18 PM EDT [facility] Est. Avg Glucose 100 mg/dL 04/01/2025 6:18 PM EDT [facility] Blood VENOUS BLOOD / Unknown Venipuncture / Unknown 04/01/2025 4:48 PM EDT 04/01/2025 4:48 PM EDT Narrative [facility] - 04/01/2025 6:18 PM EDT REFERENCE RANGE: Normal: 4.0-5.6% Pre-diabetes: 5.7-6.4% Provisional diagnosis of diabetes: >6.4% Hgb F>10% and anything which shortens red cell survival, such as hemolytic anemia, or unstable hemoglobin variants such as HbSS, HbSC, or HbCC, will lower the HbA1c value associated with a given level of glycemic control. Hammad Bruno MD CHEMISTRY ORDERABLES Final Result Performing Organization Address City/[facility]/ZIP Co de Phone Number [facility] [address] , [address] [place] [id number] * (ABNORMAL) VITAMIN B12/ FOLIC ACID (04/01/2025 4:48 PM EDT) Vitamin B12 193(L) 232 - 1,245 pg/mL 04/01/2025 6:03 PM EDT [facility] Folate 6.20 >=4.50 ng/mL 04/01/2025 6:03 PM EDT [facility] Blood VENOUS BLOOD / Unknown Venipuncture / Unknown 04/01/2025 4:48 PM EDT 04/01/2025 4:48 PM EDT Narrative [facility] - 04/01/2025 6:03 PM EDT Ingestion of manuel doses of biotin (>5 mg/day) taken within 8 hours of drawing blood sample can interfere with this immunoassay test. Hammad Bruno MD CHEMISTRY ORDERABLES Final Result Performing Organization Address [facility] Co de Phone Number [facility] [address] [place] [address] , [place] [address] documented in this encounter Visit Diagnoses Diagnosis MCI (mild cognitive impairment) with memory loss- Primary Mild cognitive impairment, so stated documented in this encounter Care Teams Technical Support 1 Software Engineer Relationship Specialty Start Date End Date Aron Shea MD PCP - General Family Medicine 02/23/15 documented as of this encounter
[2025-04-07 18:35] LABS: Basophils % 0.3 % (0.1-2.0); Eosinophils # 0.2 Kmm3 (0.0-0.4); Eosinophils % 1.6 % (0.1-12.0); Hematocrit 42.2 % (42.0-52.0); Hemoglobin 12.7 g/dL (14.1-18.0); Immature Granulocytes # 0.03 10^3uL; Immature Granulocytes % 0.3 %; Lymphocytes % 20.9 % (10-50); Mean Corpuscular HGB Conc 30.1 g/dL (31.8-35.4); Mean Corpuscular Hemoglobin 24.7 pg (27.0-31.2); Mean Corpuscular Volume 81.9 fl (80-94); Mean Platelet Volume 11.1 fl (7.4-10.4); Monocytes # 0.7 K/mm3 (0.1-1.0); Monocytes % 7.1 % (1.7-9.3); Neutrophils # 6.6 K/mm3 (1.8-7.8); Neutrophils % 69.8 % (37.0-80.0); Nucleated Red Blood Cells # 0 10^3/uL; Nucleated Red Blood Cells % 0 %; Platelet Count 234 K/mm3 (142-424); Red Blood Count 5.15 M/mm3 (4.60-6.20); Red Cell Distribution Width 16.1 % (11.5-17.5); Red Cell Distribution Width-SD 48.5 fL; White Blood Count 9.5 K/mm3 (4.8-10.8)
[2025-04-07 19:51] LABS: Alanine Aminotransferase 11 U/L (12-78); Albumin Level 3.5 g/dl (3.5-5.0); Albumin/Globulin Ratio 1.3 (1.1-1.8); Alkaline Phosphatase 171 U/L (38-126); Anion Gap 4.7 mEq/L (5-15); Aspartate Amino Transferase 20 U/L (17-59); Bilirubin,Total 0.5 mg/dl (0.2-1.3); Blood Urea Nitrogen 17 mg/dl (9-20); Calcium 8.7 mg/dl (8.4-10.2); Carbon Dioxide 32 mmol/L (22.0-30.0); Chloride 101 mmol/L (98-107); Cholesterol 133 mg/dl (140-200); Estimated Glomerular Filt Rate 98 ml/min (>60); GFR (African American) 119 ML/MIN (>60); Globulin 2.8 g/dL (1.3-3.2); Glucose 89 mg/dl (74-100); HDL Cholesterol 33 mg/dl (40-60); Potassium 4.7 mmoL/L (3.5-5.1); Sodium 133 mmol/L (136-145); Total Protein,Serum 6.3 g/dl (6.3-8.2); Triglycerides 76 mg/dl (30-150); VLDL Cholesterol 15 mg/dL (0-40)
[2025-04-07 20:04] LABS: Direct LDL Cholesterol 72.05 mg/dL (100-129)
[2025-04-07 20:32] LABS: Prostate Specific Ag Screen 0.8 ng/ml (0.0-4.0); Thyroid Stimulating Hormone 2.02 uIU/mL (0.465-4.68)
--- OUTSIDE RECORDS SUMMARY | 2025-04-08 10:39 | XMS_ITS | Clinical Summary ---
Author Organization [facility] Address [address] [place] [address] Care Team Providers Care Business Practices Officer Name Role Phone Unknown, Attending Provider Primary Care Provide r Unavailable Source Comments This information has been disclosed to you from confidential records protectedfrom disclosure by state law. You shall make no further disclosure of thisinformation without the specific, written, and informed release of theindividual to whom it pertains, or as otherwise permitted by law. A generalauthorization for the release of medical or other information is not sufficientfor the purposes of therelease of HIV test results or diagnoses. [id number] Allergies Active Allergy Reactions Criticality Noted Date Comments Acetaminophen Other (See Comments) 09/08/2018 Patient states he does not remember what happens when he takes Tylenol Morphine Anxiety Low 09/08/2018 Medications amitriptyline (ELAVIL) 50 MG tablet Take 100 mg by mouth at bedtime. Active atorvastatin (LIPITOR) 20 MG tablet Take 10 mg by mouth daily. Active busPIRone (BUSPAR) 15 MG tablet Take 15 mg by mouth 2 times a day. 04/18/2017 Active citalopram (CELEXA) 10 MG tablet Take 10 mg by mouth daily. Active furosemide (LASIX) 80 MG tablet Take 80 mg by mouth daily. 11/11/2016 Active gabapentin (NEURONTIN) 300 MG capsule Take 300 mg by mouth 2 times a day. Active tamsulosin (FLOMAX) 0.4 mg Cap Take 0.4 mg by mouth daily. Active oxyCODONE-aceta minophen (PERCOCET) 10-325 mg per tablet Take 1 tablet by mouth 4 times a day as needed for Pain. 0 08/30/2018 Active apixaban (ELIQUIS) 5 mg Tab Take 1 tablet (5 mg total) by mouth 2 times a day. 60 tablet 09/14/2018 Active ferrous sulfate 325 (65 FE) MG tablet Take 1 tablet (325 mg total) by mouth daily with breakfast. 30 tablet 09/22/2018 Active cyanocobalamin (VITAMIN B-12) 1000 MCG tablet Take 1 tablet (1,000 mcg total) by mouth daily. 20 tablet 09/22/2018 Active folic acid (FOLVITE) 1 MG tablet Take 5 tablets (5 mg total) by mouth daily. 10 tablet 09/22/2018 Active Active Problems Problem Noted Date Diagnosed Date Folate deficiency 09/13/2018 B12 deficiency 09/13/2018 Mild protein-calorie malnutrition 09/11/2018 Thigh hematoma, left, subsequent encounter 09/08 Clotting disorder 11/03/2016 Overview (09/11/2018): Overview: H/o DVT and chronic use of warfarin INR 1.6 today Essential hypertension 11/03/2016 Hyperlipemia 11/03/2016 Immunizations Immunization Administration Dates Next Due Influenza, quadrivalent, preservative-free 11/04 Social History Tobacco Use Types Packs/Day Years Used Date Smoking Tobacco: Every Day Cigarettes Smokeless Tobacco: Never Sex and Gender Information Value Date Recorded Sex Assigned at Not on file Legal Sex Male 8:05 PM EST Gender Identity Not on file Sexual Orientation Not on file Last Filed Vital Signs Vital Sign Reading Time Taken Comments Blood Pressure 117/74 09/21/2018 8:04 AM EST Pulse 83 09/21/2018 8:04 AM EST Temperature 36.8 C (98.2 F) 09/21/2018 8:04 AM EST Respiratory Rate 18 09/21/2018 8:04 AM EST Oxygen Saturation 90% 09/21/2018 8:04 AM EST Inhaled Oxygen Concentration 90% 09/21/2018 8 :04 AM EST Weight 109.8 kg (242 lb) 10/18/2018 3:03 PM EST Height 188 cm (6' 2 ) 10/18/2018 3:03 PM EST Body Mass Index 31.07 10/18/2018 3:03 PM EST Plan of Treatment Not on file Insurance [place]ICAID [place] [address] [place] [id number] Advance Directives For more information, please contact: [phone] * Full Code (Latest Code Status on File) Date Activated Date Inactivated Comments 09/08/2018 11:29 PM 09/21/2018 5:37 PM Question Answer Comments Intubate for Resp Distress: Yes Initiate CPR/ACLS in event of cardiac arrest: Logan nettles * Full Code Date Activated Date Inactivated Comments 09/08/2018 10:03 PM 09/08/2018 11:29 PM Question Answer Comments Intubate for Resp Distress: Yes Initiate CPR/ACLS in event of cardiac arrest: Logan nettles Care Teams Business Practices Officer Relationship Specialty Start Date End Date Unknown, Attending Provider PCP - General 09/08/18
--- OUTSIDE RECORDS SUMMARY | 2025-04-08 10:39 | XMS_ITS | Clinical Summary ---
Author Organization [facility] [place] Address [address] [place] [address] Phone Care Team Providers Care Product Introduction Manager Name Role Phone Aron Shea MD Primary Care Provider [phone] Allergies Active Allergy Reactions Criticality Noted Date Comments Morphine 10/13/2014 Acetaminophen Rash 12/14/2016 Medications tapentadoL 100 mg Oral Tablet Sustained Release 12 hr Take 100 mg by mouth every 12 hours. Active gabapentin (NEURONTIN) 300 mg Oral Capsule Take 300 mg by mouth 2 times daily. Active atorvastatin (LIPITOR) 20 mg Oral Tablet Take 10 mg by mouth daily. Active warfarin (COUMADIN) 2 mg Oral Tablet Take 4 mg by mouth every evening. Active tamsulosin (FLOMAX) 0.4 mg Oral Capsule, Sust. Release 24 hr Take 0.4 mg by mouth daily. Active citalopram (CELEXA) 10 mg Oral Tablet Take 10 mg by mouth daily. Active amitriptyline (ELAVIL) 50 mg Oral TabletIndicatio ns:depression,s leep Take 100 mg by mouth nightly. Indications: Depression, sleep Active fUROsemide (LASIX) 80 mg Oral Tablet Take 1 Tab by mouth daily. 30 Tab 7 Active Additional Information Patient not taking.Reported on 04/28/2022 busPIRone (BUSPAR) 15 mg Oral Tablet 15 mg 2 times daily. 7 Active ibuprofen (ADVIL;MOTRIN) 800 mg Oral Tablet 800 mg. 7 Active apixaban (ELIQUIS) 5 mg Oral Tablet Take 5 mg by mouth 2 times daily. Active potassium chloride (KLOR-CON) 10 mEq Oral Tablet Sustained Release Take 10 mEq by mouth daily. Active traZODone (DESYREL) 100 mg Oral Tablet Take 100 mg by mouth nightly. Active oxyCODONE-aceta minophen (PERCOCET) 10-325 mg Oral TabletIndicatio ns:Chronic bilateral low back pain with bilateral sciatica Take 1 Tablet by mouth every 6 hours as needed for Chronic Pain (G89.29). 120 Tablet 2 Active Active Problems Patient Care Coordination No te Formatting of this note migh t be different from the original. [facility] - Wali Alegria MD Controlled Substance Protocol Completed: A. Informed Consent Statement signed (Yearly) ( 04/28/22 ) B. Controlled Substance Agreement signed (Yearly) ( 04/28/22 ) C. Comprehensive Urine Drug Screen was performed (Minimum YEARLY ) ( ordered 04/28/22 ) D. Benja report completed (EVERY 3 MONTHS) ( 04/28/22 ) E. Screening tool for addiction (SOAPP) completed (YEARLY) ( 04/28/22 ) F. Need for controlled substance is documented (EVERY VISIT) G. Pain Scale and or Functional capacity documented (EVERY VISIT) Pharmacy: *[id number] [place] [address] [address] [phone] Problem Noted Date Diagnosed Date Hammertoe of right foot 11/18/2020 Overview (11/18/2020): Added automatically from request for surgery [id number] Status post amputation of lesser toe of left kiana t 12/17/2016 Skin ulcer of toe of left foot with necrosis of muscle 11/06/2016 Cellulitis of second toe of left foot 11/03/2016 Subtherapeutic international normalized ratio (I NR) 11/03/2016 Clotting disorder 11/03/2016 Overview (11/03/2016): H/o DVT and chronic use of warfarin INR 1.6 today Essential hypertension 11/03/2016 Hyperlipemia 11/03/2016 Encounters Date Type Department Care Team Description 04/01/2025 4:25 PM EDT - 04/01/2025 11:59 PM EDT Hospital Encounter [facility] [place] [address] [address] MCI (mild cognitive impairment) with memory loss (Primary Dx) Discharge Disposition: Home or Self Care 03/30/2025 8:22 PM EDT - 03/30/2025 10:01 PM EDT Emergency [place] [address] Obi Lebron DO Memory impairment (Primary Dx) Discharge Disposition: Home or Self Care from Last 3 Months Immunizations Immunization Administration Dates Next Due Influenza Vaccine Quadrivalent PF 11/04/2016 Surgical History Surgery Date Site/Laterality Comments TOE AMPUTATION 11/06/2016 Toe/Left Amputation of left distal 2nd digit; Surgeon: Mahamed Pereira DPM; Location: [facility] OR; Service: Podiatry HIP SURGERY Bilateral pins in hips age 14 TRACHEAL SURGERY trach/reversal after fell out of a tree age 6 DENTAL SURGERY teeth extracted TONSILLECTOMY COLONOSCOPY TOE AMPUTATION 12/17/2020 Right Amputation right second toe.; Surgeon: Mahamed Pereira DPM; Location: [facility]; Service: Orthopedics Medical History Medical History Date Comments Hypertension H/O blood clots in legs Clotting disorder factor V Hyperlipidemia Depression Neuropathy bilateral feet Post-operative nausea and vomiting Motion sickness Social History Tobacco Use Types Packs/Day Years Used Date Smoking Tobacco: Every Day Cigarettes 1 43.4 Started: 11/03/1981 Smokeless Tobacco: Never Tobacco Cessation:Ready to Q uit: No Alcohol Use Standard Drinks/Week Comments No 0 (1 standard drink = 0.6 oz pur e alcohol) Sex and Gender Information Value Date Recorded Sex Assigned at Not on file Legal Sex Male 8:54 PM EDT Gender Identity Not on file Sexual Orientation Not on file Obstetrics History Last Filed Vital Signs Vital Sign Reading [...] Mass Index 28.63 03/30/2025 7:46 PM EDT Plan of Treatment Health Maintenance Due Date Last Done Comments Annual Wellness Exam 1966 Hepatitis C Screening 1981 Pneumococcal Vaccine 50+ (1 of 2 - PCV) 1982 Cologuard 2008 Colon Cancer Screening 2008 Colonoscopy 2008 FIT 2008 Sigmoidoscopy 2008 Virtual Colonography 2008 Zoster (1 of 2) 2013 Low Dose Lung Cancer Screening 09/08/2019 09/08/2018, 10/13/2014 COVID-19 Vaccine ( season) 2024 DTaP/TDaP/Td (2 - Td or Tdap) 09/18/2027 09/18/2017 Influenza Vaccine Completed 12/11/2024, , 08/21/2017, Additional history exists Hepatitis B Vaccine Aged Out No longe r eligible based on patient's age to complete this topic Meningococcal B Vaccine Aged Out No l onger eligible based on patient's age to complete this topic Goals Goal Patient Goal Type Associated Problems Recent Progress Patient-Stated? Author Blood Pressure < 140/90 Blood Pressure 140/69(2024 7:46 PM EDT) No Dawn Agarwal MA Maintain a healthy diet, exercise regularly and maintain an ideal body weight General No Dawn Agarwal MA Stay Tobacco Free Lifestyle No Dawn Agarwal MA Procedures Procedure Name Priority Date/Time Associated Diagnosis Comments THYROID STIMULATING HORMONE Callback 04/01/2025 4:48 PM EDT MCI (mild cognitive impairment) with memory loss SYPHILIS SCREEN WITH REFLEX RPR QUANT Callback [...] MCI (mild cognitive impairment) with memory loss CT HEAD WO CONTRAST STAT 03/30/2025 9 :[address] CHEST W CONTRAST STAT 10/13/2014 7 :12 AM EST from Last 3 Months or Most Recently Relevant to Health Maintenance Results * SYPHILIS SCREEN WITH REFLEX RPR QUANT (04/01/2025 4:48 PM EDT) Trep Ab Index 0.04 <=0.99 Index Value 04/01/2025 6:53 PM EDT [facility] Comment: < 1.00 - Non-Reactive >=1.00 - Reactive NOTE: All reactive results will be reflexed to Quantitative Non-Treponemal(RPR)test. Blood VENOUS BLOOD / Unknown Venipuncture / Unknown 04/01/2025 4:48 PM EDT 04/01/2025 4:48 PM EDT us Hammad Bruno MD CHEMISTRY ORDERABLES Final Result [facility] [address] [place] [address] , [place] [address] * (ABNORMAL) VITAMIN B12/ FOLIC ACID (04/01/2025 4:48 PM EDT) Vitamin B12 193(L) 232 - 1,245 pg/mL 04/01/2025 6:03 PM EDT [facility] Folate 6.20 >=4.50 ng/mL 04/01/2025 6:03 PM EDT [facility] Blood VENOUS BLOOD / Unknown Venipuncture / Unknown 04/01/2025 4:48 PM EDT 04/01/2025 4:48 PM EDT Narrative [facility] - 04/01/2025 6:03 PM EDT Ingestion of manuel doses of biotin (>5 mg/day) taken within 8 hours of drawing blood sample can interfere with this immunoassay test. Hammad Bruno MD CHEMISTRY ORDERABLES Final Result Performing Organization Address City/[facility]/ZIP Co de Phone Number [facility] [address] [facility], [place] [address] * VITAMIN B1 (THIAMINE) WHOLE BLOOD -REF LAB (04/01/2025 4:48 PM EDT) Pathologist [facility] Vit B1 WB 118 70 - 180 nmol/L 04/05/2025 2:41 PM EDT [facility] Comment: INTERPRETIVE INFORMATION: Vitamin B1, Whole Blood This assay measures the concentration of thiamine diphosphate (TDP), the primary active form of vitamin B1. Approximately 90 percent of vitamin B1 present in whole blood is TDP. Thiamine and thiamine monophosphate, which comprise the remaining 10 percent, are not measured. This test was developed and its performance characteristics determined by [facility]. It has not been cleared or approved by the [place] Food and Drug Administration. This test was performed in a CLIA certified laboratory and is intended for clinical purposes. Performed By: [facility] [address] [place] [id number] Recep: Rolan Milligan MD, PhD CLIA Number: [id number] Blood VENOUS BLOOD / Unknown Venipuncture / Unknown 04/01/2025 4:48 PM EDT 04/01/2025 4:48 PM EDT Hammad Bruno MD CHEMISTRY ORDERABLES Final Result Performing Organization Address City/[facility]/ZIP Co de Phone Number [facility] [address] [place] [address] * (ABNORMAL) SEDIMENTATION RATE AUTOMATED (04/01/2025 4:48 PM EDT) Sed Rate 26(H) 0 - 20 mm/hr 04/01/2025 5:31 PM EDT [facility] Blood VENOUS BLOOD / Unknown Venipuncture / Unknown 04/01/2025 4:48 PM EDT 04/01/2025 4:48 PM EDT Hammad Bruno MD HEMATOLOGY ORDERABLES Final Result Performing Organization Address [facility] Co de Phone Number [facility] [employer] [address] [place] [address] * THYROID STIMULATING HORMONE (04/01/2025 4:48 PM EDT) Pathologist [facility] TSH 2.000 0.270 - 4.200 mcIU/mL 04/01/2025 5:53 PM EDT [facility] Blood VENOUS BLOOD / Unknown Venipuncture / Unknown 04/01/2025 4:48 PM EDT 04/01/2025 4:48 PM EDT Narrative [facility] - 04/01/2025 5:53 PM EDT Ingestion of manuel doses of biotin (>5 mg/day) taken within 8 hours of drawing blood sample can interfere with this immunoassay test. Hammad Bruno MD CHEMISTRY ORDERABLES Final Result Performing Organization Address [facility] de Phone Number [facility] [employer] [address] [place] [address] * HEMOGLOBIN A1C (04/01/2025 4:48 PM EDT) Hgb A1C 5.1 4.2 - 5.6 % 04/01/2025 6:18 PM EDT [facility] Est. Avg Glucose 100 mg/dL 04/01/2025 6:18 PM EDT [facility] Blood VENOUS BLOOD / Unknown Venipuncture / Unknown 04/01/2025 4:48 PM EDT 04/01/2025 4:48 PM EDT Narrative [facility] - 04/01/2025 6:18 PM EDT REFERENCE RANGE: Normal: 4.0-5.6% Pre-diabetes: 5.7-6.4% Provisional diagnosis of diabetes: >6.4% Hgb F>10% and anything which shortens red cell survival, such as hemolytic anemia, or unstable hemoglobin variants such as HbSS, HbSC, or HbCC, will lower the HbA1c value associated with a given level of glycemic control. us Hammad Bruno MD CHEMISTRY ORDERABLES Final Result [facility] [address] , [place] [address] * CT HEAD WO CONTRAST (03/30/2025 9:16 [...] DO IMG CT ORDERABLES Final Resul t * CT CHEST W CONTRAST (10/13/2014 7:12 AM EST) Anatomical Region Laterality Modality Chest Computed Tomogra phy 10/13/2014 6:46 AM EST Impressions 10/13/2014 7:28 AM EST IMPRESSION: Healed granulomatous disease. Mediastinal adenopathy including a subcarinal lymph node which is nonspecific in appearance. Mild infiltrate in the periphery of the right lung No evidence of fracture or pneumothorax Bowers Narrative 10/13/2014 7:[address] chest with contrast including sagittal and coronal reformats 7:05 a.m., October 05, [id number] Trauma pain, and 75 mL Isovue-370, no priors Bone detail images show healed rib fractures. The trachea and major bronchi are normal. Special images of the lungs show healed granulomas. There is mild infiltrate in the lateral aspect of the right upper lobe. There is no axillary adenopathy. There is a partially calcified azygous node which is mildly enlarged measuring 16 mm x 12 mm. This is probably benign. There is a mildly enlarged subcarinal lymph node which measures 38 mm x 20 mm. This is nonspecific. The imaged upper abdominal viscera are normal. Procedure Note Hugo Bowers MD - 10/13/2014 CT chest with contrast including sagittal and coronal reformats 7:05 a.m., October 05, [id number] Trauma pain, and 75 mL Isovue-370, no priors Bone detail images show healed rib fractures. The trachea and majorbronchi are normal. Special images of the lungs show healed granulomas. There is mild infiltrate inthe lateral aspect of the right upper lobe. There is no axillary adenopathy. There is apartially calcified azygous node which is mildly enlarged measuring 16 mm x 12 mm. This is probablybenign. There is a mildly enlarged subcarinal lymph node which measures 38 mm x 20 mm. Thisis nonspecific. The imaged upper abdominal viscera are normal. IMPRESSION: Healed granulomatous disease. Mediastinal adenopathy including a subcarinal lymph node which isnonspecific in appearance. Mild infiltrate in the periphery of the right lung No evidence of fracture or pneumothorax Bowers us Ozzy Marion MD IMG CT ORDERABLES Final Resul t from Last 3 Months or Most Recently Relevant to Health Maintenance Insurance [employer] MEDICARE PPO MR Advance Directives For more information, please contact: [phone] * Full Code (Latest Code Status on File) Date Activated Date Inactivated Comments 11/08/2016 7:38 AM 11/11/2016 9:04 PM Care Teams Product Introduction Manager Relationship Specialty Start Date End Date Aron Shea MD PCP - General Family Medicine 02/23/15
== END 2025-04-07 23:59 | disposition home or self-care (01) ==
LOC: LAB.DROPOF 04-08 10:28
PROVIDERS: PCP Family Medicine; Visit Provider Family Medicine
DX: G62.9 Polyneuropathy, unspecified (principal)
CPT/HCPCS: 80053; 80061; 84443; 85025; G0103

== ENCOUNTER 2025-04-28 08:14 | Day surgery (SDC) | payer MEDICARE, SELFPAY ==
[2025-04-28] VITALS (12 sets, daily range): BP systolic 118–162; BP diastolic 67–90; PULSE 71–80; RESP 16–20; TEMP 36.7; O2SAT 90–98; BMI 29.4
--- NOTE | 2025-04-28 07:09 | IR_ITS ---
APPROVED REPORT Patient Location: Outpatient Documentation Supervisor: AB Brumfield RT (R) PROCEDURES Left heart catheterization Left ventriculogram Selective coronary angiogram INDICATION Abnormal Myoview, Angina pectoris Informed consent was obtained prior to the procedure. COMPLICATIONS NONE Estimated Blood Loss: LESS THAN 10 ML TECHNIQUE One percent lidocaine used to anesthetize the right anterior aspect of the wrist. The right radial artery was accessed via the Seldinger technique. A long 25 cm hydrophilic 6 Persian sheath was placed in the right radial artery. 2.5 mg of Verapamil, 800 mcg of nitroglycerin, 1mg Lidocaine and 5000 U Heparin were given through the arterial sheath. The JL3 catheter was also used to perform left heart catheterization, left ventriculogram and selective coronary angiogram. At the end of the procedure the sheath was removed good hemostasis was achieved using Traclet band, patient was transferred to the postop holding area in stable condition. ANGIOGRAPHIC RESULTS The left main artery Normal The left anterior descending artery Has proximal and mid vessel diffuse 10% luminal regularities The circumflex artery Codominant with diffuse 10% luminal regularities The right coronary artery Codominant with diffuse 10% luminal regularities The ZARAGOZA ventriculogram reveals Normal 60% The left ventricular end-diastolic pressure Severely elevated at 30 mmHg IMPRESSION Mild diffuse luminal regularities Normal ejection fraction with severely elevated LVEDP PLAN 1. Medical management for HFpEF and for coronary artery disease Electronically signed by : iNck Nelson MD 04/28/2025 12:32:08
[2025-04-28 08:39] LABS: Hematocrit 41.9 % (42.0-52.0); Hemoglobin 13.1 g/dL (14.1-18.0); Immature Granulocytes % 0.3 %; Mean Corpuscular HGB Conc 31.3 g/dL (31.8-35.4); Mean Corpuscular Hemoglobin 25.4 pg (27.0-31.2); Mean Corpuscular Volume 81.2 fl (80-94); Nucleated Red Blood Cells % 0 %; Platelet Count 231 K/mm3 (142-424); Red Blood Count 5.16 M/mm3 (4.60-6.20); Red Cell Distribution Width-SD 45.9 fL; White Blood Count 7.0 K/mm3 (4.8-10.8)
[2025-04-28 08:48] LABS: Anion Gap 11.0 mEq/L (5-15); Blood Urea Nitrogen 15 mg/dl (9-20); Calcium 8.9 mg/dl (8.4-10.2); Carbon Dioxide 33 mmol/L (22.0-30.0); Chloride 100 mmol/L (98-107); Creatinine Clearance Estimated 108 mL/min (50-200); Creatinine,Serum 0.80 mg/dl (0.66-1.25); Estimated Glomerular Filt Rate 98 ml/min (>60); GFR (African American) 119 ML/MIN (>60); Glucose 99 mg/dl (74-100); Potassium 4.0 mmoL/L (3.5-5.1); Sodium 140 mmol/L (136-145)
[2025-04-28] MEDS: HEPARIN 1,000 UNITS/500ML NS (CATH LAB) 3000 UNIT IV (10:07)
[2025-04-28] MEDS: NITROGLYCERIN 800MCG/8ML SYR (CATH LAB) 800 MCG IA (10:07)
[2025-04-28] MEDS: 0.9 % SODIUM CHLORIDE 500 ML 25 ML IV (10:08)
[2025-04-28] MEDS: LIDOCAINE 1% 10ML MDV 10 ML IJ (10:08)
[2025-04-28] MEDS: HEPARIN 1,000 UNITS/ML 10ML VIAL (CATH LAB) 5000 UNIT IV (10:08)
[2025-04-28] MEDS: MIDAZOLAM HCL 1MG/ML 5ML VIAL 1 MG IV (10:08)
[2025-04-28] MEDS: VERAPAMIL 2.5MG/ML 2ML VIAL 2.5 MG IV (10:08)
[2025-04-28] MEDS: FENTANYL 100MCG/2ML VIAL 50 MCG IV (10:09)
[2025-04-28] MEDS: IOPAMIDOL-370 (76%);100ML BOTTLE 75 ML IV (11:02)
== END 2025-04-28 14:40 | disposition home or self-care (01) ==
LOC: CATHLAB 08:15
PROVIDERS: PCP Family Medicine; Visit Provider Internal Medicine
PROC: 4A023N7 Measurement of Cardiac Sampling and Pressure, Left Heart, Percutaneous Approach (ICD-10-PCS; CPT 93452; principal; 2025-04-28 08:00)
DX: I25.119 Atherosclerotic heart disease of native coronary artery with unspecified angina pectoris (principal); I50.30 Unspecified diastolic (congestive) heart failure; F39 Unspecified mood [affective] disorder; I73.9 Peripheral vascular disease, unspecified; F17.210 Nicotine dependence, cigarettes, uncomplicated; E78.2 Mixed hyperlipidemia; G62.9 Polyneuropathy, unspecified; N52.9 Male erectile dysfunction, unspecified; E66.3 Overweight; Z68.29 Body mass index [BMI] 29.0-29.9, adult; Z88.6 Allergy status to analgesic agent; Z88.5 Allergy status to narcotic agent; Z79.01 Long term (current) use of anticoagulants; Z79.899 Other long term (current) drug therapy; Z89.422 Acquired absence of other left toe(s); Z89.421 Acquired absence of other right toe(s); Z86.718 Personal history of other venous thrombosis and embolism
CPT/HCPCS: 80048; 85025; 93458; 99152; C1725; C1769; J1200; J1644; J2003; J3010; J7040; Q9967

== ENCOUNTER 2025-08-11 08:36 | Day surgery (SDC) | payer MEDICARE, SELFPAY ==
--- NOTE | 2025-08-10 12:05 | P.HP_ITS ---
History of Present Illness *Admission Date: 08/11/25 *History of present illness: Mr. Sierra is a 60-year-old gentleman who is here for diagnostic upper endoscopy. He has had unintentional weight loss and has had some tenderness in the epigastrium and some generalized abdominal discomfort. He eats 1 meal a day. Andreea dubois does have some chronic constipation. The examination is deemed medically necessary for diagnostic EGD. The patient has been seen, interviewed and examined prior to the procedure by both myself and the anesthesia provider. [facility] Disclaimer: The information contained in this section may have been updated after the patient was seen, as this information can be updated by other users. Medical History (Updated 08/11/25 @ 09:24 by Hammad Vital RN) Factor 5 Leiden mutation, heterozygous CAD in [place] artery Amputation of toe of left foot History of head injury Mood disorder Neuropathy Osteoarthritis Overweight (BMI 25.0-29.9) Hyperlipidemia Peripheral artery disease Testosterone deficiency Surgical History History of partial amputation of toe of left foot History of amputation of lesser toe of both feet History of amputation of toe Family History Father Cancer Social History (Updated 08/11/25 @ 09:12 by Hammad Vital RN) Smoking Status: Current every day smoker tobacco type: cigarettes packs per day: 1 alcohol intake: never substance use type: denies use current occupational status: disabled Travel in the last 8 weeks?: None household members: other housing: house current occupation: [employer] caffeine: Yes Have you lived/traveled outside US in past 30 days?: No Contact w/someone who lives/traveled outside US past 30 days?: No Exposure to someone with infectious disease in past 14 days?: No Do you have a fever (greater than 100.4 F or 38 C)?: No Have you tested positive for COVID-19?: Yes Exposed to someone with COVID-19 in past 14 days?: No Do you have a sore throat?: No Do you have a cough?: No Do you have any weakness?: No Are you experiencing any nausea/vomitting?: No Do you have any diarrhea?: No Are you experiencing any unusual bleeding?: No Do you have any muscle aches/pain?: No Do you have any abdominal pain?: No Are you experiencing loss of taste or smell?: No Other Medical History Have you received the Flu Vaccine for this season: No Have you received the Pneumonia Vaccine: No Review of Systems Review of Systems Review of systems (narrative): Negative *Cardiovascular Comments: Negative *Gastrointestinal Comments: Negative *Genitourinary Comments: Negative *Musculoskeletal Comments: Negative *Neurologic Comments: Negative Meds Home Medications and Allergies Home Medications ?Medication ?Instructions ?Recorded ?Confirmed ?Type albuterol sulfate 90 mcg/actuation 2 puff inhalation Q ID PRN 09/09/24 08/11/25 Rx aerosol inhaler shortness of breath or wheez ing #8.5 grams apixaban 5 mg tablet (Eliquis) See Rx Instructions .Ro tunica-biloxi 09/25/24 08/11/25 Rx .COMPLEX #180 tabs escitalopram oxalate 20 mg tablet 20 mg PO DAILY #90 t abs 11/11/24 08/11/25 Rx (Lexapro) nystatin 100,000 unit/gram topical See Rx Instructions .Route 11/21/24 08/11/25 Rx ointment .COMPLEX #30 grams atorvastatin 20 mg tablet (Lipitor) 20 mg PO DAILY #90 tabs 01/27/25 08/11/25 Rx tadalafil 20 mg tablet (Cialis) 20 mg PO DAILY PRN sex ual activity 02/10/25 08/11/25 Rx #30 tabs trazodone 150 mg tablet See Rx Instructions .Route 0 02/20/25 08/11/25 Rx .COMPLEX #90 tabs gabapentin 600 mg tablet 600 mg PO DAILY 05/26/25 History methylcellulose (laxative) 1 tbsp PO DAILY #907 grams 05/26/25 08/11/25 Rx (Citrucel Sugar Free oral powder) oxycodone-acetaminophen 7.5 mg-325 1 tab PO TID PRN Pa in 05/26/25 08/11/25 History mg tablet polyethylene glycol 3350 17 17 g PO DAILY #510 grams 0 05/26/25 08/11/25 Rx gram/dose oral powder (Miralax) amitriptyline 50 mg tablet See Rx Instructions .Route 06/12/25 08/11/25 Rx .COMPLEX #90 tabs doxepin 25 mg capsule 25 mg PO HS #90 caps 07/09/2 5 08/11/25 Rx potassium chloride 10 mEq See Rx Instructions .Route 0 07/14/25 08/11/25 Rx tablet,extended release .COMPLEX . #90 tabs cyclobenzaprine 10 mg tablet 10 mg PO TID PRN muscle s pasm #90 07/25/25 08/11/25 Rx tabs furosemide 40 mg tablet (Lasix) 40 mg PO BID PRN edema #60 tabs 08/04/25 08/11/25 Rx erythromycin 5 mg/gram (0.5 %) eye 0.5 inch ophthalmic (eye) BID #3.5 08/06/25 08/11/25 Rx ointment grams New Prescriptions to Start Prescriptions: Allergies Allergy/AdvReac Type Severity Reaction Status Date / Time acetaminophen (From Tylenol) AdvReac Mild Itching Verified 08/11/25 09:04 morphine AdvReac Depression Verified 08/11/25 09:04 Exam *Routine HEENT Exam Head: Present normocephalic Eye: Present EOMI and PERRL ENT: Present mucous membranes moist *Routine Neck Exam Neck: Present supple *Routine Respiratory Exam Respiratory: Present CTA bilaterally *Routine Cardiovascular Exam Cardiovascular: Present RRR *Routine Abdominal Exam Abdominal: Present soft and normoactive bowel sounds; Absent tenderness *Routine Rectal Exam Rectal:: deferred *Routine Genitalia Exam Genitalia:: deferred *Routine Extremities Exam Extremities: Absent cyanosis, clubbing or edema *Routine Skin Exam Skin: Present warm; Absent rash *Routine Neurological Exam Neurological: Present alert and oriented X3 Assessment and Plan *Assessment and plan (1) Weight loss: Status: Acute Category: Medical Code(s): R63.4 - Abnormal weight loss (2) Abdominal tenderness: Status: Acute Category: Medical Code(s): R10.819 - Abdominal tenderness, unspecified site (3) Borderline anemia: Status: Acute Category: Medical Code(s): D64.9 - Anemia, unspecified Plan A/P: 1. Abnormal weight loss with generalized abdominal discomfort and tenderness and borderline anemia is the preprocedural diagnosis. The patient will be anesthetized/sedated using MAC sedation. The patient has been seen and examined. Cardiac and lung assessment prior to the examination is stable. Proceed with planned diagnostic EGD.
--- NOTE | 2025-08-11 06:39 | P.PCN_ITS ---
[facility] Procedure Note Date: 08/11/25 Time: 10:04 Procedure Note:: Upper Endoscopy Procedure Report: Esophagogastroduodenoscopy with cold biopsies Endoscopost: Igor Rodney II, MD Referring Physician: Mahamed Shea MD Date of Procedure: August 11, 2025 Equipment: Olympus GIF-1100 standard upper endoscope Sedation: MAC sedation Indications: Mr. Sierra is a 60-year-old gentleman who is here for diagnostic upper endoscopy. He has had unintentional weight loss and has had some tenderness in the epigastrium and some generalized abdominal discomfort. He eats 1 meal a day. He does have some chronic constipation. He reports some heartburn. It is difficult to extract history. Procedure: Prior to the procedure, a history and physical exam was performed, and patient's medications and allergies were reviewed. The risks, benefits and alternatives of the sedation and procedure were discussed with the patient. All questions were answered and informed consent was obtained. The patient was brought to the procedure room. Patient identification and proposed procedure were verified by the physician and the nurse. The patient was placed in a left lateral decubitus position and the scope was passed under direct vision. Throughout the procedure, the patient's blood pressure, pulse, and oxygen saturations were monitored continuously. The upper GI endoscopy was accomplished without difficulty. The patient tolerated the procedure well. Findings: The scope was passed directly into the upper esophagus and advanced to the third portion of the duodenum. The post bulbar duodenum and duodenal bulb were normal with normal mucosa and conniventes. 2 cold biopsies were taken from the second portion of the duodenum for the disaccharidase assay. The scope was withdrawn through a normal duodenal bulb and pylorus into the stomach. There was bile reflux with very mild prepyloric antral reactive gastropathy. The remainder of the antrum body and fundus were normal. Upon retroflexion there was a very small sliding 1 to 2 cm hiatal hernia. The scope was then withdrawn into the esophagus. There was grade B?C reflux esophagitis with linear superficial erosions that extended 2 to 3 cm proximally. There was a short tongue of salmon-colored mucosa that was biopsied to rule out intestinal metaplasia. The remainder of the esophageal mucosa was normal. Impression: 1. Grade B?C (LA classification) reflux esophagitis with small 1 to 2 cm hiatal hernia 2. Bile reflux with minimal prepyloric reactive gastropathy Plan: I will follow-up the biopsies and disaccharidase assay. I will initiate omeprazole twice daily for the reflux esophagitis.
[2025-08-11 08:59] VITALS: BMI 25.9
[2025-08-11 09:12] VITALS: BP 125/66; PULSE 74; RESP 18; TEMP 36.4; O2SAT 98
--- NOTE | 2025-08-11 09:32 | EXP.ANES.CKL ---
[facility] Disclaimer: The information contained in this section may have been updated after the patient was seen, as this information can be updated by other users. Medical History (Updated 08/11/25 @ 09:24 by Hammad Vital RN) Factor 5 Leiden mutation, heterozygous CAD in [place] artery Amputation of toe of left foot History of head injury Mood disorder Neuropathy Osteoarthritis Overweight (BMI 25.0-29.9) Hyperlipidemia Peripheral artery disease Testosterone deficiency Surgical History History of partial amputation of toe of left foot History of amputation of lesser toe of both feet History of amputation of toe Family History Father Cancer Social History (Updated 08/11/25 @ 09:12 by Hammad Vital RN) Smoking Status: Current every day smoker tobacco type: cigarettes packs per day: 1 alcohol intake: never substance use type: denies use current occupational status: disabled Travel in the last 8 weeks?: None household members: other housing: house current occupation: [employer] caffeine: Yes Have you lived/traveled outside [place] in past 30 days?: No Contact w/someone who lives/traveled outside [place] past 30 days?: No Exposure to someone with infectious disease in past 14 days?: No Do you have a fever (greater than 100.4 F or 38 C)?: No Have you tested positive for COVID-19?: Yes Exposed to someone with COVID-19 in past 14 days?: No Do you have a sore throat?: No Do you have a cough?: No Do you have any weakness?: No Are you experiencing any nausea/vomitting?: No Do you have any diarrhea?: No Are you experiencing any unusual bleeding?: No Do you have any muscle aches/pain?: No Do you have any abdominal pain?: No Are you experiencing loss of taste or smell?: No [facility] Anesthesia Checklist Patient Identification Patient Identification: Arm Band Structural Data Admitted From: Home Planned Operative Procedure/s: EGD Consent for Planned Operative Procedure(s) Verified: Yes Verified Documents: Surgical Consent and History and Physical NPO Status Verified Time NPO: 00:00 Additional verifications Anesthesia Reactions: No Hx Blood Transfusions: No Blood Transfusion Reaction: No Airway Assessment Mallampati Score:: Class II C-Spine Mobility Assessed: Yes TMJ Mobility Assessed: Yes Dentition: Edentulous Neurological Assessment Level of Consciousness: Awake, Alert and Appropriate Anesthesia Plan Anesthesia Risk discussed: Yes Anesthesia Plan: Verified ASA Class: III Anesthesia Type: MAC
[2025-08-11 10:07] VITALS: BP 85/53; PULSE 73; RESP 20; TEMP 36.3; O2SAT 98
[2025-08-11 10:17] VITALS: BP 90/57; PULSE 67; RESP 20; O2SAT 100
[2025-08-11 10:27] VITALS: BP 103/76; PULSE 55; RESP 20; O2SAT 100
[2025-08-11 10:37] VITALS: BP 104/71; PULSE 66; RESP 20; TEMP 36.3; O2SAT 100
[2025-08-14 17:53] LABS: Interpretation Notes (.); Lactase 4.22 (>/= 14.0); Maltase 120.36 (>/= 110.0); Palatinase 7.13 (>/= 8.5); Reference Notes (.); Sucrase 27.98 (>/= 25.0)
== END 2025-08-11 11:14 | disposition home or self-care (01) ==
PROVIDERS: PCP Family Medicine; Visit Provider Internal Medicine Gastroenterology
PROC: 0DJ08ZZ Inspection of Upper Intestinal Tract, Via Natural or Artificial Opening Endoscopic (ICD-10-PCS; CPT 43239; principal; 2025-08-11 10:00)
DX: K29.50 Unspecified chronic gastritis without bleeding (principal); K22.70 Barrett's esophagus without dysplasia; K44.9 Diaphragmatic hernia without obstruction or gangrene; K31.89 Other diseases of stomach and duodenum; D64.9 Anemia, unspecified; K21.00 Gastro-esophageal reflux disease with esophagitis, without bleeding; K59.09 Other constipation; F17.210 Nicotine dependence, cigarettes, uncomplicated; I25.10 Atherosclerotic heart disease of native coronary artery without angina pectoris; E78.5 Hyperlipidemia, unspecified; Z79.01 Long term (current) use of anticoagulants
CPT/HCPCS: 43239; 82657; J2003; J2704